=== PATIENT | female | born 1945 | race Caucasian/White ===

== ENCOUNTER 2018-10-09 11:23 | Inpatient (IN) | payer MEDICARE, OTHER ==
[~2018-10-09] VITALS: Ht 170.2 cm; Wt 88.2 kg
--- NOTE | 2018-10-09 12:09 | PHYS DOC ---
Past Medical History Past Medical History: Diabetes-Type II, Heart Disease, Hypertension, Other Additional Past Medical Histor: Bursitis Past Surgical History: Angioplasty, Other Additional Past Surgical Histo: 7 Stents Alcohol Use: Occasionally Drug Use: None Adult General Chief Complaint Chief Complaint: FLU SYMPTOM HPI HPI Patient is a 72 year old female who presents with cough, nausea and vomiting for the past 5 days. Patient has been unable to tolerate any oral intake for the last 2 days. No chest pain or palpitations. Fever of 102 maximum. Notes that she had a fever of 101 this morning. Nothing seems to make the symptoms better. Tylenol and Motrin trigger the nausea and vomiting. No blood in the emesis. No diarrhea.[] Review of Systems Review of Systems Constitutional: Denies fever or chills [] Eyes: Denies change in visual acuity, redness, or eye pain [] HENT: Denies nasal congestion or sore throat [] Respiratory: Denies cough or shortness of breath [] Cardiovascular: No chest pain or palpitations[] GI: Denies abdominal pain, nausea, vomiting, bloody stools or diarrhea [] : Denies dysuria or hematuria [] Musculoskeletal: Denies back pain or joint pain [] Integument: Denies rash or skin lesions [] Neurologic: Denies headache, focal weakness or sensory changes [] Endocrine: Denies polyuria or polydipsia [] All other systems were reviewed and found to be within normal limits, except as documented in this note. Current Medications Current Medications Current Medications Medications (Trade) Dose Ordered Sig/Mohinder Start Time Stop Time Status Last Admin Dose Admin Albuterol/ Ipratropium (Duoneb) 3 ml 1X ONCE 10/09/18 13:00 10/09/18 13:01 DC 10/09/18 12:55 3 ML Furosemide (Lasix) 20 mg 1X ONCE 10/09/18 13:00 10/09/18 13:01 DC 10/09/18 13:04 20 MG Sodium Chloride 500 ml @ 500 mls/hr 1X ONCE 10/09/18 12:15 10/09/18 13:14 DC 10/09/18 13:00 500 MLS/HR Allergies Allergies Allergies Coded Allergies Type Severity Reaction Last Updated Verified Iodinated Contrast- Oral and IV Dye Allergy Severe HIVES 10/09/18 Yes codeine Allergy Severe PASSOUT 10/09/18 Yes pioglitazone Allergy Severe SWELLING 10/09/18 Yes rosiglitazone Allergy Severe SWELLING 10/09/18 Yes Physical Exam Physical Exam Constitutional: Well developed, well nourished, no acute distress, non-toxic appearance. [] HENT: Normocephalic, atraumatic, bilateral external ears normal, oropharynx moist, no oral exudates, nose normal. [] Eyes: PERRLA, EOMI, conjunctiva normal, no discharge. [] Neck: Normal range of motion, no tenderness, supple, no stridor. [] Cardiovascular:Heart rate regular rhythm, no murmur [] Lungs & Thorax: Bilateral breath sounds clear to auscultation [] Abdomen: Bowel sounds normal, soft, no tenderness, no masses, no pulsatile masses. [] Skin: Warm, dry, no erythema, no rash. [] Back: No tenderness, no CVA tenderness. [] Extremities: No tenderness, no cyanosis, no clubbing, ROM intact, no edema. [] Neurologic: Alert and oriented X 3, normal motor function, normal sensory function, no focal deficits noted. [] Psychologic: Affect normal, judgement normal, mood normal. [] Current Patient Data Vital Signs Vital Signs Date Time Temp Pulse Resp B/P (MAP) Pulse Ox O2 Delivery O2 Flow Rate FiO2 10/09/18 12:56 Nasal Cannula 3.0 10/09/18 12:08 99.8 90 18 135/60 (85) 86 99.8 Lab Values Laboratory Tests Test 10/09/18 11:55 White Blood Count 5.6 x10^3/uL (4.0-11.0) Red Blood Count 4.90 x10^6/uL (3.50-5.40) Hemoglobin 13.9 g/dL (12.0-15.5) Hematocrit 42.9 % (36.0-47.0) Mean Corpuscular Volume 88 fL (79-100) Mean Corpuscular Hemoglobin 28 pg (25-35) Mean Corpuscular Hemoglobin Concent 32 g/dL (31-37) Red Cell Distribution Width 15.6 % (11.5-14.5) H Platelet Count 171 x10^3/uL (140-400) Neutrophils (%) (Auto) 69 % (31-73) Lymphocytes (%) (Auto) 19 % (24-48) L Monocytes (%) (Auto) 12 % (0-9) H Eosinophils (%) (Auto) 0 % (0-3) Basophils (%) (Auto) 0 % (0-3) Neutrophils # (Auto) 3.9 x10^3uL (1.8-7.7) Lymphocytes # (Auto) 1.0 x10^3/uL (1.0-4.8) Monocytes # (Auto) 0.7 x10^3/uL (0.0-1.1) Eosinophils # (Auto) 0.0 x10^3/uL (0.0-0.7) Basophils # (Auto) 0.0 x10^3/uL (0.0-0.2) Prothrombin Time 13.0 SEC (11.7-14.0) Prothrombin Time INR 1.0 (0.8-1.1) Sodium Level 135 mmol/L (136-145) L Potassium Level 4.6 mmol/L (3.5-5.1) Chloride Level 96 mmol/L (98-107) L Carbon Dioxide Level 30 mmol/L (21-32) Anion Gap 9 (6-14) Blood Urea Nitrogen 39 mg/dL (7-20) H Creatinine 2.1 mg/dL (0.6-1.0) H Estimated GFR (Cockcroft-Gault) 23.2 BUN/Creatinine Ratio 19 (6-20) Glucose Level 294 mg/dL (70-99) H Calcium Level 8.5 mg/dL (8.5-10.1) Magnesium Level 2.3 mg/dL (1.8-2.4) Total Bilirubin 0.3 mg/dL (0.2-1.0) Aspartate Amino Transferase (AST) 38 U/L (15-37) H Alanine Aminotransferase (ALT) 26 U/L (14-59) Alkaline Phosphatase 53 U/L (46-116) Troponin I Quantitative 0.035 ng/mL (0.000-0.055) BQ-Zxo-Y-Type Natriuretic Peptide 618 pg/mL (0-124) H Total Protein 7.7 g/dL (6.4-8.2) Albumin 3.0 g/dL (3.4-5.0) L Albumin/Globulin Ratio 0.6 (1.0-1.7) L Lipase 288 U/L (73-393) Influenza Type A Antigen Positive (NEGATIVE) Influenza Type B Antigen Negative (NEGATIVE) Laboratory Tests 10/09/18 11:55 Laboratory Tests 10/09/18 11:55 EKG EKG EKG shows sinus rhythm at 85 bpm, left axis, QTC 433 ms, no ST elevations, no old EKG is available for comparison. This was interpreted by me at 1231[] Radiology/Procedures Radiology/Procedures PORTABLE CHEST 1V Clinical History: cough, hypoxia Technique: AP view of the chest was obtained at 10/09/2018 12:05 PM. Comparison: May 12, 2004. Findings: The cardiomediastinal silhouette is normal. The pulmonary vasculature is normal. There are linear opacities in the left lung base. Impression: Linear opacities in the left lung base likely discoid atelectasis. [] Course & Med Decision Making Course & Med Decision Making Pertinent Labs and Imaging studies reviewed. (See chart for details) ED course: Patient arrived, was placed in bed, in tolerated exam well. After the return of the laboratory and imaging studies, these were discussed with the patient and family who voiced understanding. Consultation was made with hospitalist service who graciously accepted the patient. Patient was admitted in improved condition. Medical decision making: Patient appears to have influenza a as well as hypoxia. There is no focal infiltrate noted on chest x-ray. Her BNP is elevated so diuretics were administered, along with a breathing treatment for the hypoxia. Troponin is negative which is this is been an acute cardiac event would expect it to be elevated since this has been going on for less than 7 days. Patient is not a candidate for Tamiflu given the length of the symptoms.[] Dragon Disclaimer Dragon Disclaimer This electronic medical record was generated, in whole or in part, using a voice recognition dictation system. Departure Departure Impression: Primary Impression: Influenza A Additional Impression: Hypoxia Disposition: ADMITTED INPATIENT Admitting Physician: Li Jaramillo Condition: IMPROVED Referrals: J CARLOS EDMONDSON (PCP) Problem Qualifiers FAREED GARNETT DO Oct 09, 2018 12:09
[2018-10-09] MEDS ORDERED: IV NORMAL SALINE 500ML BAG 500 ML IV ONE (12:15)
[2018-10-09 12:17] LABS: BASO % 0 % (0-3); EOS % 0 % (0-3); HEMATOCRIT 42.9 % (36.0-47.0); HEMOGLOBIN 13.9 g/dL (12.0-15.5); LYMPH % 19 % (24-48); MEAN CORPUSCULAR HEMOGLOBIN 28 pg (25-35); MEAN CORPUSCULAR HGB CONC 32 g/dL (31-37); MEAN CORPUSCULAR VOLUME 88 fL (79-100); MONO # 0.7 x10^3/uL (0.0-1.1); MONO % 12 % (0-9); NEUT # 3.9 x10^3uL (1.8-7.7); NEUT % 69 % (31-73); PLATELET COUNT 171 x10^3/uL (140-400); RED CELL DISTRIBUTION WIDTH 15.6 % (11.5-14.5); WHITE BLOOD COUNT 5.6 x10^3/uL (4.0-11.0)
[2018-10-09 12:25] LABS: CALCIUM 8.5 mg/dL (8.5-10.1); CREATININE 2.1 mg/dL (0.6-1.0); GFR 23.2; POTASSIUM 4.6 mmol/L (3.5-5.1)
[2018-10-09 12:31] LABS: ALBUMIN/GLOBULIN RATIO 0.6 (1.0-1.7); MAGNESIUM 2.3 mg/dL (1.8-2.4); TOTAL BILIRUBIN 0.3 mg/dL (0.2-1.0); TOTAL PROTEIN 7.7 g/dL (6.4-8.2)
[2018-10-09 12:37] LABS: INFLUENZA A PATIENT POSITIVE (NEGATIVE); INFLUENZA B PATIENT NEGATIVE (NEGATIVE)
--- NOTE | 2018-10-09 12:38 | RAD ---
PORTABLE CHEST 1V Clinical History: cough, hypoxia Technique: AP view of the chest was obtained at 10/09/2018 12:05 PM. Comparison: May 12, 2004. Findings: The cardiomediastinal silhouette is normal. The pulmonary vasculature is normal. There are linear opacities in the left lung base. Impression: Linear opacities in the left lung base likely discoid atelectasis. Electronically signed by: Jovani Padilla III, MD (10/09/2018 12:34 PM) [facility]
[2018-10-09] MEDS ORDERED: IPRATRPIUM/ALBUTEROL 0.5/2.5MG 3 ML NEBU. NEB ONE (13:00)
[2018-10-09] MEDS ORDERED: FUROSEMIDE 20 MG/2 ML VIAL. IVP ONE (13:00)
[2018-10-09] MEDS ORDERED: ONDANSETRON PF 4 MG/2 ML VIAL. IV PRN (13:45)
[2018-10-09 14:45] VITALS: BP 123/59
[2018-10-09] MEDS ORDERED: DEXTROSE 50% 25 GM / 50ML DISP.SYRIN. IV PRN (15:00)
--- NOTE | 2018-10-09 15:00 | PDOC1 ---
History and Physical Date of Admission Date of Admission DATE: 10/09/18 TIME: 14:56 Identification/Chief Complaint Chief Complaint lethargy, dyspnea, nausea Source Source: Caregiver, Chart review, Patient History of Present Illness History of Present Illness Ms. Barrett is a 72 year old female who admit with dyspena and lethargy and malaise. She has not had much PO intake for 4 days, limited food or fluids, also with cough, nausea w. soem vomiting for the past few days. No chest pain or palpitations. Temp 102 at home Past Medical History Cardiovascular: CAD, HTN Endocrine: Diabetes Family History Family History: Heart Disease Social History Smoke: Quit (20 years ago) ALCOHOL: rare Current Medications Current Medications Current Medications Sodium Chloride 500 ml @ 500 mls/hr 1X ONCE IV Last administered on 10/09/18at 13:00; Start 10/09/18 at 12:15; Stop 10/09/18 at 13:14; Status DC Albuterol/ Ipratropium (Duoneb) 3 ml 1X ONCE NEB Last administered on at 12:55; Start 10/09/18 at 13:00; Stop 10/09/18 at 13:01; Status DC Furosemide (Lasix) 20 mg 1X ONCE IVP Last administered on 10/09/18at 13:04; Start 10/09/18 at 13:00; Stop 10/09/18 at 13:01; Status DC Ondansetron HCl (Zofran) 4 mg PRN Q8HRS PRN IV NAUSEA/VOMITING; Start 10/09/18 at 13:45; Stop 10/10/18 at 13:44 Acetaminophen (Tylenol) 650 mg PRN Q4HRS PRN PO FEVER; Start 10/09/18 at 13:45; Stop 10/10/18 at 13:44 Albuterol/ Ipratropium (Duoneb) 3 ml RTQID NEB ; Start 10/09/18 at 16:00; Stop at 15:59 Allergies Allergies: Coded Allergies: Iodinated Contrast- Oral and IV Dye (Verified Allergy, Severe, HIVES, ) codeine (Verified Allergy, Severe, PASSOUT, 10/09/18) pioglitazone (Verified Allergy, Severe, SWELLING, 10/09/18) rosiglitazone (Verified Allergy, Severe, SWELLING, 10/09/18) ROS General: No: Chills, Night Sweats, Fatigue, Malaise, Appetite, Other PSYCHOLOGICAL ROS: No: Anxiety, Behavioral Disorder, Concentration difficultie , Decreased libido, Depression, Disorientation, Hallucinations, Hostility, Irritablity, Memory difficulties, Mood Swings, Obsessive thoughts, Physical abuse, Sexual abuse, Sleep disturbances, Suicidal ideation, Other Eyes: No Blurry vision, No Decreased vision, No Double vision, No Dry eyes, No Excessive tearing, No Eye Pain, No Itchy Eyes, No Loss of vision, No Photophobia , No Scotomata, No Uses contacts, No Uses glasses, No Other HEENT: No: Heacaches, Visual Changes, Hearing change, Nasal congestion, Nasal discharge, Oral lesions, Sinus pain, Sore Throat, Epistaxis, Sneezing, Snoring, Tinnitus, Vertigo, Vocal changes, Other Respiratory: No: Cough, Hemoptysis, Orthopnea, Pleuritic Pain, Shortness of breath, SOB with excertion, Sputum Changes, Stridor, Tachypnea, Wheezing, Other Cardiovascular: No Chest Pain, No Palpitations, No Orthopnea, No Paroxysmal Noc. Dyspnea, No Edema, No Lt Headedness, No Other Genitourinary: No Dysuria, No Frequency, No Incontinence, No Hematuria, No Retention, No Discharge, No Urgency, No Pain, No Flank Pain, No Other, No , No , No , No , No , No , No Musculoskeletal: No Gait Disturbance, No Joint Pain, No Joint Stiffness, No Joint Swelling, No Muscle Pain, No Muscular Weakness, No Pain In:, No Swelling In:, No Other Neurological: No Behavorial Changes, No Bowel/Bladder ControlChng, No Confusion , No Dizziness, No Gait Disturbance, No Headaches, No Impaired Coord/balance, No Memory Loss, No Numbness/Tingling, No Seizures, No Speech Problems, No Tremors, No Visual Changes, No Weakness, No Other Skin: No Dry Skin, No Eczema, No Hair Changes, No Lumps, No Mole Changes, No Mottling, No Nail Changes, No Pruritus, No Rash, No Skin Lesion Changes, No Other, No Acne Physical Exam General: Alert, Cooperative, No acute distress HEENT: PERRLA, Mucous membr. moist/pink Lungs: Clear to auscultation, Normal air movement Heart: S1S2, RRR, no murmurs Abdomen: Normal bowel sounds, Soft Rectal Exam: not examined Extremities: No cyanosis, Normal pulses, Other (tr edema) Skin: No rashes Neuro: Normal speech, Sensation intact Psych/Mental Status: Mental status NL, Mood NL Vitals Vitals Vital Signs Date Time Temp Pulse Resp B/P (MAP) Pulse Ox O2 Delivery O2 Flow Rate FiO2 10/09/18 13:00 84 118/56 (76) 97 Nasal Cannula 2.0 10/09/18 12:08 99.8 18 99.8 Labs Labs Laboratory Tests Test 10/09/18 11:55 White Blood Count 5.6 x10^3/uL (4.0-11.0) Red Blood Count 4.90 x10^6/uL (3.50-5.40) Hemoglobin 13.9 g/dL (12.0-15.5) Hematocrit 42.9 % (36.0-47.0) Mean Corpuscular Volume 88 fL (79-100) Mean Corpuscular Hemoglobin 28 pg (25-35) Mean Corpuscular Hemoglobin Concent 32 g/dL (31-37) Red Cell Distribution Width 15.6 % (11.5-14.5) Platelet Count 171 x10^3/uL (140-400) Neutrophils (%) (Auto) 69 % (31-73) Lymphocytes (%) (Auto) 19 % (24-48) Monocytes (%) (Auto) 12 % (0-9) Eosinophils (%) (Auto) 0 % (0-3) Basophils (%) (Auto) 0 % (0-3) Neutrophils # (Auto) 3.9 x10^3uL (1.8-7.7) Lymphocytes # (Auto) 1.0 x10^3/uL (1.0-4.8) Monocytes # (Auto) 0.7 x10^3/uL (0.0-1.1) Eosinophils # (Auto) 0.0 x10^3/uL (0.0-0.7) Basophils # (Auto) 0.0 x10^3/uL (0.0-0.2) Prothrombin Time 13.0 SEC (11.7-14.0) Prothromb Time International Ratio 1.0 (0.8-1.1) Sodium Level 135 mmol/L (136-145) Potassium Level 4.6 mmol/L (3.5-5.1) Chloride Level 96 mmol/L (98-107) Carbon Dioxide Level 30 mmol/L (21-32) Anion Gap 9 (6-14) Blood Urea Nitrogen 39 mg/dL (7-20) Creatinine 2.1 mg/dL (0.6-1.0) Estimated GFR (Cockcroft-Gault) 23.2 BUN/Creatinine Ratio 19 (6-20) Glucose Level 294 mg/dL (70-99) Calcium Level 8.5 mg/dL (8.5-10.1) Magnesium Level 2.3 mg/dL (1.8-2.4) Total Bilirubin 0.3 mg/dL (0.2-1.0) Aspartate Amino Transf (AST/SGOT) 38 U/L (15-37) Alanine Aminotransferase (ALT/SGPT) 26 U/L (14-59) Alkaline Phosphatase 53 U/L (46-116) Troponin I Quantitative 0.035 ng/mL (0.000-0.055) AK-Iqf-A-Type Natriuretic Peptide 618 pg/mL (0-124) Total Protein 7.7 g/dL (6.4-8.2) Albumin 3.0 g/dL (3.4-5.0) Albumin/Globulin Ratio 0.6 (1.0-1.7) Lipase 288 U/L (73-393) Influenza Type A Antigen Positive (NEGATIVE) Influenza Type B Antigen Negative (NEGATIVE) Laboratory Tests Test 10/09/18 11:55 White Blood Count 5.6 x10^3/uL (4.0-11.0) Red Blood Count 4.90 x10^6/uL (3.50-5.40) Hemoglobin 13.9 g/dL (12.0-15.5) Hematocrit 42.9 % (36.0-47.0) Mean Corpuscular Volume 88 fL (79-100) Mean Corpuscular Hemoglobin 28 pg (25-35) Mean Corpuscular Hemoglobin Concent 32 g/dL (31-37) Red Cell Distribution Width 15.6 % (11.5-14.5) Platelet Count 171 x10^3/uL (140-400) Neutrophils (%) (Auto) 69 % (31-73) Lymphocytes (%) (Auto) 19 % (24-48) Monocytes (%) (Auto) 12 % (0-9) Eosinophils (%) (Auto) 0 % (0-3) Basophils (%) (Auto) 0 % (0-3) Neutrophils # (Auto) 3.9 x10^3uL (1.8-7.7) Lymphocytes # (Auto) 1.0 x10^3/uL (1.0-4.8) Monocytes # (Auto) 0.7 x10^3/uL (0.0-1.1) Eosinophils # (Auto) 0.0 x10^3/uL (0.0-0.7) Basophils # (Auto) 0.0 x10^3/uL (0.0-0.2) Prothrombin Time 13.0 SEC (11.7-14.0) Prothromb Time International Ratio 1.0 (0.8-1.1) Sodium Level 135 mmol/L (136-145) Potassium Level 4.6 mmol/L (3.5-5.1) Chloride Level 96 mmol/L (98-107) Carbon Dioxide Level 30 mmol/L (21-32) Anion Gap 9 (6-14) Blood Urea Nitrogen 39 mg/dL (7-20) Creatinine 2.1 mg/dL (0.6-1.0) Estimated GFR (Cockcroft-Gault) 23.2 BUN/Creatinine Ratio 19 (6-20) Glucose Level 294 mg/dL (70-99) Calcium Level 8.5 mg/dL (8.5-10.1) Magnesium Level 2.3 mg/dL (1.8-2.4) Total Bilirubin 0.3 mg/dL (0.2-1.0) Aspartate Amino Transf (AST/SGOT) 38 U/L (15-37) Alanine Aminotransferase (ALT/SGPT) 26 U/L (14-59) Alkaline Phosphatase 53 U/L (46-116) Troponin I Quantitative 0.035 ng/mL (0.000-0.055) NV-Vub-K-Type Natriuretic Peptide 618 pg/mL (0-124) Total Protein 7.7 g/dL (6.4-8.2) Albumin 3.0 g/dL (3.4-5.0) Albumin/Globulin Ratio 0.6 (1.0-1.7) Lipase 288 U/L (73-393) Influenza Type A Antigen Positive (NEGATIVE) Influenza Type B Antigen Negative (NEGATIVE) VTE Prophylaxis Ordered VTE Prophylaxis Devices: No VTE Pharmacological Prophylaxi: Yes Assessment/Plan Assessment/Plan sepsis influenza acute hypoxic respiratory failure, unknown if baseline lung disease, she had PFT lsat week at , no results yet BELINDA DM2, poor control CAD, hx 11 stents, cont home meds, no acute, obesity, BMI 31 CHF, chronic systolic, she reports dyspnea with walking one block, NYHA3 - cannot tolerate stairs NREI NASH MD Oct 09, 2018 15:00
--- NOTE | 2018-10-09 15:40 | PDOC ---
PULMONARY PROGRESS NOTES Vitals Vital Signs Date Time Temp Pulse Resp B/P (MAP) Pulse Ox O2 Delivery O2 Flow Rate FiO2 10/09/18 13:00 84 118/56 (76) 97 Nasal Cannula 2.0 10/09/18 12:08 99.8 18 99.8 Labs Laboratory Tests Test 10/09/18 11:55 White Blood Count 5.6 x10^3/uL (4.0-11.0) Red Blood Count 4.90 x10^6/uL (3.50-5.40) Hemoglobin 13.9 g/dL (12.0-15.5) Hematocrit 42.9 % (36.0-47.0) Mean Corpuscular Volume 88 fL (79-100) Mean Corpuscular Hemoglobin 28 pg (25-35) Mean Corpuscular Hemoglobin Concent 32 g/dL (31-37) Red Cell Distribution Width 15.6 % (11.5-14.5) Platelet Count 171 x10^3/uL (140-400) Neutrophils (%) (Auto) 69 % (31-73) Lymphocytes (%) (Auto) 19 % (24-48) Monocytes (%) (Auto) 12 % (0-9) Eosinophils (%) (Auto) 0 % (0-3) Basophils (%) (Auto) 0 % (0-3) Neutrophils # (Auto) 3.9 x10^3uL (1.8-7.7) Lymphocytes # (Auto) 1.0 x10^3/uL (1.0-4.8) Monocytes # (Auto) 0.7 x10^3/uL (0.0-1.1) Eosinophils # (Auto) 0.0 x10^3/uL (0.0-0.7) Basophils # (Auto) 0.0 x10^3/uL (0.0-0.2) Prothrombin Time 13.0 SEC (11.7-14.0) Prothromb Time International Ratio 1.0 (0.8-1.1) Sodium Level 135 mmol/L (136-145) Potassium Level 4.6 mmol/L (3.5-5.1) Chloride Level 96 mmol/L (98-107) Carbon Dioxide Level 30 mmol/L (21-32) Anion Gap 9 (6-14) Blood Urea Nitrogen 39 mg/dL (7-20) Creatinine 2.1 mg/dL (0.6-1.0) Estimated GFR (Cockcroft-Gault) 23.2 BUN/Creatinine Ratio 19 (6-20) Glucose Level 294 mg/dL (70-99) Calcium Level 8.5 mg/dL (8.5-10.1) Magnesium Level 2.3 mg/dL (1.8-2.4) Total Bilirubin 0.3 mg/dL (0.2-1.0) Aspartate Amino Transf (AST/SGOT) 38 U/L (15-37) Alanine Aminotransferase (ALT/SGPT) 26 U/L (14-59) Alkaline Phosphatase 53 U/L (46-116) Troponin I Quantitative 0.035 ng/mL (0.000-0.055) OA-Aoj-I-Type Natriuretic Peptide 618 pg/mL (0-124) Total Protein 7.7 g/dL (6.4-8.2) Albumin 3.0 g/dL (3.4-5.0) Albumin/Globulin Ratio 0.6 (1.0-1.7) Lipase 288 U/L (73-393) Influenza Type A Antigen Positive (NEGATIVE) Influenza Type B Antigen Negative (NEGATIVE) Laboratory Tests Test 10/09/18 11:55 White Blood Count 5.6 x10^3/uL (4.0-11.0) Red Blood Count 4.90 x10^6/uL (3.50-5.40) Hemoglobin 13.9 g/dL (12.0-15.5) Hematocrit 42.9 % (36.0-47.0) Mean Corpuscular Volume 88 fL (79-100) Mean Corpuscular Hemoglobin 28 pg (25-35) Mean Corpuscular Hemoglobin Concent 32 g/dL (31-37) Red Cell Distribution Width 15.6 % (11.5-14.5) Platelet Count 171 x10^3/uL (140-400) Neutrophils (%) (Auto) 69 % (31-73) Lymphocytes (%) (Auto) 19 % (24-48) Monocytes (%) (Auto) 12 % (0-9) Eosinophils (%) (Auto) 0 % (0-3) Basophils (%) (Auto) 0 % (0-3) Neutrophils # (Auto) 3.9 x10^3uL (1.8-7.7) Lymphocytes # (Auto) 1.0 x10^3/uL (1.0-4.8) Monocytes # (Auto) 0.7 x10^3/uL (0.0-1.1) Eosinophils # (Auto) 0.0 x10^3/uL (0.0-0.7) Basophils # (Auto) 0.0 x10^3/uL (0.0-0.2) Prothrombin Time 13.0 SEC (11.7-14.0) Prothromb Time International Ratio 1.0 (0.8-1.1) Sodium Level 135 mmol/L (136-145) Potassium Level 4.6 mmol/L (3.5-5.1) Chloride Level 96 mmol/L (98-107) Carbon Dioxide Level 30 mmol/L (21-32) Anion Gap 9 (6-14) Blood Urea Nitrogen 39 mg/dL (7-20) Creatinine 2.1 mg/dL (0.6-1.0) Estimated GFR (Cockcroft-Gault) 23.2 BUN/Creatinine Ratio 19 (6-20) Glucose Level 294 mg/dL (70-99) Calcium Level 8.5 mg/dL (8.5-10.1) Magnesium Level 2.3 mg/dL (1.8-2.4) Total Bilirubin 0.3 mg/dL (0.2-1.0) Aspartate Amino Transf (AST/SGOT) 38 U/L (15-37) Alanine Aminotransferase (ALT/SGPT) 26 U/L (14-59) Alkaline Phosphatase 53 U/L (46-116) Troponin I Quantitative 0.035 ng/mL (0.000-0.055) BF-Iho-G-Type Natriuretic Peptide 618 pg/mL (0-124) Total Protein 7.7 g/dL (6.4-8.2) Albumin 3.0 g/dL (3.4-5.0) Albumin/Globulin Ratio 0.6 (1.0-1.7) Lipase 288 U/L (73-393) Influenza Type A Antigen Positive (NEGATIVE) Influenza Type B Antigen Negative (NEGATIVE) Impression . FULL NOTE DICTATED ATELECTASIS INFLUENZA SEE ORDERS ALESSANDRO VELAZQUEZ MD Oct 09, 2018 15:40
[2018-10-09] MEDS ORDERED: OMEG100021 PO (15:44)
[2018-10-09] MEDS ORDERED: CLOP75TA PO (15:44)
[2018-10-09] MEDS ORDERED: EXEN2PEN SQ (15:44)
[2018-10-09] MEDS ORDERED: METF10007 PO (15:44)
[2018-10-09] MEDS ORDERED: MV-M1TAB52 PO (15:44)
[2018-10-09] MEDS ORDERED: ISOS30TA4 PO (15:44)
[2018-10-09] MEDS ORDERED: LISI-376 PO (15:44)
[2018-10-09] MEDS ORDERED: ASPI81TA50 PO (15:44)
[2018-10-09] MEDS ORDERED: CALC-494 PO (15:44)
[2018-10-09] MEDS ORDERED: INSU100I17 SQ (15:44)
[2018-10-09] MEDS ORDERED: METO-269 PO (15:44)
[2018-10-09] MEDS ORDERED: FURO-68 PO (15:44)
[2018-10-09] MEDS ORDERED: ZOLP10TA PO (15:44)
[2018-10-09] MEDS ORDERED: CRESTOR10 MG PO (15:44)
[2018-10-09] MEDS ORDERED: CYAN10005 PO (15:44)
[2018-10-09] MEDS ORDERED: NITR0.4T22 SL (15:44)
[2018-10-09] MEDS ORDERED: GABA-689 PO (15:44)
[2018-10-09] MEDS: IPRATRPIUM/ALBUTEROL 0.5/2.5MG 3 ML NEBU. NEB SCH ×2 (15:47→19:07)
[2018-10-09] MEDS: ACETAMINOPHEN 325 MG TABLET. PO PRN (16:53)
[2018-10-09] MEDS: OSELTAMIVIR 30 MG CAPSULE PO SCH (16:54)
[2018-10-09] MEDS: IV NORMAL SALINE 1000ML BAG 1,000 ML IV SCH (16:55)
[2018-10-09] MEDS: INSULIN LISPRO 300 UNITS/3 ML INSULN.PEN. SQ SCH ×2 (17:00→17:11)
[2018-10-09 18:18] VITALS: BP 82/34
[2018-10-09] MEDS ORDERED: ZOLPIDEM 5 MG TABLET. PO PRN (18:45)
[2018-10-09] MEDS ORDERED: NITROGLYCERIN SUBLINGUAL 0.4 MG BOTTLE OF 25. SL PRN (18:45)
[2018-10-09] MEDS: GABAPENTIN 400 MG CAPSULE. PO SCH ×2 (19:00→20:39)
[2018-10-09 19:10] VITALS: BP 101/41
--- NOTE | 2018-10-09 19:13 | NUR ---
Upon 190 VS check found patient b/p in the 80's systolic. Patient did not report dizziness and shows no signs of diaphoresis. Gave a total of 500 cc's fluid bolus and upon recheck B/p is now 101/41.
[2018-10-09] MEDS: OMEGA-3 FATTY ACIDS/FISH OIL 1,000 MG CAPSULE. PO SCH (20:39)
[2018-10-09] MEDS: ATORVASTATIN CALCIUM 40 MG TABLET. PO SCH (20:39)
[2018-10-09] MEDS: INSULIN GLARGINE 300 UNITS/3 ML INSULN.PEN. SQ SCH (20:42)
[2018-10-09] MEDS: HEPARIN for SUB-Q USE 5,000 UNIT/ML VIAL. SQ SCH (20:42)
[2018-10-09 22:30] VITALS: BP 113/66
[2018-10-09 22:50] LABS: BILIRUBIN,URINE NEGATIVE (NEG); CLARITY,URINE CLOUDY; COLOR,URINE YELLOW; NITRITE,URINE NEGATIVE (NEG); PH,URINE 5.5; PROTEIN,URINE 100 mg/dL (NEG-TRACE); UROBILINOGEN,URINE 0.2 mg/dL (0.2 mg/dL)
[2018-10-09 23:01] LABS: BACTERIA,URINE MANY /HPF (0-FEW); HYALINE CASTS, URINE MODERATE /HPF; RBC,URINE 0 /HPF (0-2); SQUAMOUS EPITHELIAL CELL,UR FEW /LPF; WBC,URINE TNTC /HPF (0-4)
[2018-10-10] MEDS: ACETAMINOPHEN 325 MG TABLET. PO PRN (02:31)
[2018-10-10 03:00] VITALS: BP 148/65
[2018-10-10] MEDS: cefTRIAXone IV Push 1 GM VIAL. IVP SCH (04:43)
--- NOTE | 2018-10-10 04:45 | CONS ---
DATE OF CONSULTATION: 10/09/2018 REASON FOR CONSULTATION: Renal failure. HISTORY OF PRESENT ILLNESS: This is a 72-year-old female with history of diabetes mellitus, hypertension, coronary artery disease. The patient presented to the hospital with weakness, fatigue and dyspnea. She also has had nausea, vomiting, poor oral intake for 4 days prior to admission. Temperature was 102 at home. She was found to be positive for influenza and is being admitted for the same. Due to increased level of azotemia, Nephrology evaluation is requested. The patient denies history of renal disease, nephrolithiasis, gross hematuria or difficulty with urination. Laboratories were notable for sodium of 135, BUN 39, creatinine 2.1, GFR is 23. PAST MEDICAL HISTORY: Diabetes mellitus, hypertension, coronary artery disease. ALLERGIES: IV CONTRAST, IODINE, CODEINE, PIOGLITAZONE, ROSIGLITAZONE. FAMILY HISTORY: Noncontributory. SOCIAL HISTORY: The patient resides independently. Rare alcohol use, discontinued smoking 20 years prior to admission. REVIEW OF SYSTEMS: She has had headache. No sinus problem, nasal drainage, epistaxis, change in vision or hearing. No difficulty swallowing. She has had fever and chills. No cough or sputum production or hemoptysis. No chest pain or shortness of breath. No abdominal pain. She has had nausea and vomiting. No diarrhea. No seizures or malignancies. PHYSICAL EXAMINATION: GENERAL APPEARANCE: The patient is awake, conversant. HEENT: Clear. NECK: No increased JVD. No thyromegaly, masses or adenopathy. LUNGS: Clear. CARDIAC: Without S3 or rub. ABDOMEN: Soft, nontender, no bruits. EXTREMITIES: Without edema. NEUROLOGIC: Nonfocal, localizing. PSYCHIATRIC: Good attention to detail, appropriate affect. LABORATORY DATA: Sodium 135, potassium 4.6, chloride 96, CO2 of 30, BUN is 39, creatinine 2.1, GFR is 23. Hemoglobin 13.9, hematocrit 42.9, white count 5.6, platelets 171. Influenza A antigen is positive. IMPRESSION: 1. Renal failure -- likely acute, anticipate prerenal with dehydration secondary to enhanced gastrointestinal losses, poor oral intake. 2. Influenza A. 3. Diabetes mellitus. RECOMMENDATIONS: 1. Tamiflu. 2. IV fluid administration and follow response. ANIBAL MENDEZ MD DR: ALEJANDRA/aquiles JOB#: [id number] / [id number]
--- NOTE | 2018-10-10 04:50 | CONS ---
DATE OF CONSULTATION: 10/09/2018 ATTENDING PHYSICIAN: Dr. Jaramillo. REASON FOR CONSULTATION: The patient is seen in pulmonary consultation at the request of Dr. Jaramillo for abnormal x-ray, increasing dyspnea. HISTORY OF PRESENT ILLNESS: The patient is a 72-year-old that has been sick for a couple of days now, fever at home, body aches, lethargy. She had a flu vaccination. She presented and had an influenza screen, which was positive for influenza A. She had a chest x-ray revealing questionable atelectasis in the base. I reviewed it. I was asked to see him in consultation. The patient denies wheezing, no productive cough. No nausea or vomiting. She is a smoker, but quit 20 years ago. She has no diagnosis of COPD. PAST MEDICAL HISTORY: Coronary artery disease with previous PCI, hypertension and diabetes. PAST SURGICAL HISTORY: No recent surgeries. ALLERGIES: CONTRAST DYE, CODEINE, PIOGLITAZONE AND ROSIGLITAZONE. MEDICATIONS: Medication list was reviewed. REVIEW OF SYSTEMS: As indicated above, otherwise, a 10-point system was reviewed and negative. CONSTITUTIONAL: As indicated above. EYES: No change in visual acuity. HEENT: No headaches, diplopia or blurred vision. PULMONARY: As indicated above. CARDIOVASCULAR: As indicated above. GASTROINTESTINAL: As indicated above. SKIN: No dysuria or frequency. MUSCULOSKELETAL: Generalized myalgias. NEUROLOGIC: No headaches, diplopia or blurred vision. SKIN: No new skin lesions. PHYSICAL EXAMINATION: GENERAL: The patient was in no respiratory distress. VITAL SIGNS: Stable. O2 saturation currently on 2 liters was greater than 92%. HEENT: Eyes, the sclerae were nonicteric. NECK: Jugular venous distention was not elevated. No lymphadenopathy. CHEST: Full expansion. LUNGS: Coarse breath sounds, no wheezes. CARDIOVASCULAR: Regular rate and rhythm with S1, S2, no S3. ABDOMEN: Soft, nontender, nondistended. EXTREMITIES: No clubbing, cyanosis or edema. NEUROLOGIC: The patient was awake, alert, following commands. A detailed neuro exam was not performed. LABORATORY DATA: Reviewed. White count was normal. Hemoglobin and hematocrit were normal. Electrolytes were noted. BUN was elevated, creatinine was elevated. Influenza was positive. IMPRESSION: 1. Abnormal x-ray revealing left lower lobe atelectasis. 2. Tobacco dependence, in remission, questionable mild chronic obstructive pulmonary disease. 3. Positive influenza A. 4. Renal insufficiency, suspect chronic on acute. 5. Diabetes. 6. Coronary artery disease. PLAN: 1. We will continue support with IV fluids. 2. Tamiflu. 3. No need for antibiotics. 4. Nebulized treatments. I do appreciate the privilege in sharing in the patient's care. ALESSANDRO VELAZQUEZ MD DR: BRITTNY/aquiles JOB#: [id number] / [id number]
[2018-10-10] MEDS ORDERED: IBUPROFEN 400 MG TABLET. PO ONE (05:00)
[2018-10-10] MEDS: IV NORMAL SALINE 1000ML BAG 1,000 ML IV SCH ×2 (05:20→17:01)
[2018-10-10 05:21] LABS: BASO % 0 % (0-3); EOS % 0 % (0-3); HEMATOCRIT 39.4 % (36.0-47.0); HEMOGLOBIN 13.1 g/dL (12.0-15.5); LYMPH # 1.1 x10^3/uL (1.0-4.8); LYMPH % 22 % (24-48); MEAN CORPUSCULAR HEMOGLOBIN 29 pg (25-35); MEAN CORPUSCULAR HGB CONC 33 g/dL (31-37); MEAN CORPUSCULAR VOLUME 87 fL (79-100); MONO # 0.6 x10^3/uL (0.0-1.1); MONO % 12 % (0-9); NEUT # 3.3 x10^3uL (1.8-7.7); NEUT % 66 % (31-73); PLATELET COUNT 141 x10^3/uL (140-400); RED BLOOD COUNT 4.52 x10^6/uL (3.50-5.40); RED CELL DISTRIBUTION WIDTH 15.7 % (11.5-14.5)
[2018-10-10 06:17] LABS: ALBUMIN 2.6 g/dL (3.4-5.0); ALBUMIN/GLOBULIN RATIO 0.6 (1.0-1.7); CALCIUM 8.2 mg/dL (8.5-10.1); CREATININE 1.9 mg/dL (0.6-1.0); POTASSIUM 4.2 mmol/L (3.5-5.1); TOTAL BILIRUBIN 0.3 mg/dL (0.2-1.0); TOTAL PROTEIN 6.9 g/dL (6.4-8.2)
--- NOTE | 2018-10-10 07:54 | EKG ---
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
[2018-10-10] MEDS: IPRATRPIUM/ALBUTEROL 0.5/2.5MG 3 ML NEBU. NEB SCH ×2 (07:59→11:45)
[2018-10-10] MEDS: INSULIN LISPRO 300 UNITS/3 ML INSULN.PEN. SQ SCH ×6 (08:00→17:00)
[2018-10-10] MEDS: ASPIRIN ENTERIC COATED 81 MG TABLET.DR. PO SCH (08:25)
[2018-10-10] MEDS: GABAPENTIN 400 MG CAPSULE. PO SCH ×4 (08:25→20:58)
[2018-10-10] MEDS: CALCIUM CARB/VIT D3 500/200 TABLET. PO SCH (08:25)
[2018-10-10] MEDS: CLOPIDOGREL BISULFATE 75 MG TABLET PO SCH (08:26)
[2018-10-10] MEDS: CYANOCOBALAMIN (VITAMIN B-12) 1,000 MCG TABLET. PO SCH (08:26)
[2018-10-10] MEDS: OMEGA-3 FATTY ACIDS/FISH OIL 1,000 MG CAPSULE. PO SCH ×3 (08:26→20:58)
[2018-10-10] MEDS: FUROSEMIDE 40 MG TABLET. PO SCH (08:26)
[2018-10-10] MEDS: OSELTAMIVIR 30 MG CAPSULE PO SCH (08:26)
[2018-10-10] MEDS: LACTOBACILLUS RHAMNOSUS GG 1 CAPSULE. PO SCH ×2 (08:26→20:58)
[2018-10-10] MEDS: MULTIVITAMIN with MINERAL TABLET. PO SCH (08:26)
[2018-10-10] MEDS: METOPROLOL SUCC 24HR ER 50 MG TAB.ER.24H. PO SCH (08:27)
[2018-10-10] MEDS: HEPARIN for SUB-Q USE 5,000 UNIT/ML VIAL. SQ SCH ×2 (08:35→21:07)
[2018-10-10] MEDS: LISINOPRIL 5 MG TABLET. PO SCH (09:00)
--- NOTE | 2018-10-10 10:15 | PDOC ---
PROGRESS NOTES Chief Complaint Chief Complaint CC: Lethargy, dyspnea, malaise Influenza A positive Acute hypoxic respiratory failure BELINDA DM2 CAD with hx of 11 stents Obesity CHF History of Present Illness History of Present Illness Pt is a 72 y/o female who presented with lethargy, dyspnea and malaise. Found to be Influenza A positive. Today she was seen and examined in her room. She is resting in her bed. Her is in the room. She has no new complaints at this time. Discussed care with her RN. Vitals Vitals Vital Signs Date Time Temp Pulse Resp B/P (MAP) Pulse Ox O2 Delivery O2 Flow Rate FiO2 10/10/18 08:27 82 113/55 10/10/18 08:00 94 Nasal Cannula 2.0 10/10/18 07:27 18 10/10/18 03:00 102.2 102.2 Physical Exam General: Alert, Cooperative, No acute distress Heart: Regular rate, No murmurs Lungs: Clear, Other (no wheezing or crackles) Abdomen: Normal bowel sounds, Soft Extremities: No cyanosis, Normal pulses, Other (tr edema) Skin: No rashes Labs LABS Laboratory Tests Test 10/09/18 11:55 10/09/18 16:48 10/09/18 20:38 10/09/18 22:35 White Blood Count 5.6 x10^3/uL (4.0-11.0) Red Blood Count 4.90 x10^6/uL (3.50-5.40) Hemoglobin 13.9 g/dL (12.0-15.5) Hematocrit 42.9 % (36.0-47.0) Mean Corpuscular Volume 88 fL (79-100) Mean Corpuscular Hemoglobin 28 pg (25-35) Mean Corpuscular Hemoglobin Concent 32 g/dL (31-37) Red Cell Distribution Width 15.6 % (11.5-14.5) Platelet Count 171 x10^3/uL (140-400) Neutrophils (%) (Auto) 69 % (31-73) Lymphocytes (%) (Auto) 19 % (24-48) Monocytes (%) (Auto) 12 % (0-9) Eosinophils (%) (Auto) 0 % (0-3) Basophils (%) (Auto) 0 % (0-3) Neutrophils # (Auto) 3.9 x10^3uL (1.8-7.7) Lymphocytes # (Auto) 1.0 x10^3/uL (1.0-4.8) Monocytes # (Auto) 0.7 x10^3/uL (0.0-1.1) Eosinophils # (Auto) 0.0 x10^3/uL (0.0-0.7) Basophils # (Auto) 0.0 x10^3/uL (0.0-0.2) Prothrombin Time 13.0 SEC (11.7-14.0) Prothromb Time International Ratio 1.0 (0.8-1.1) Sodium Level 135 mmol/L (136-145) Potassium Level 4.6 mmol/L (3.5-5.1) Chloride Level 96 mmol/L (98-107) Carbon Dioxide Level 30 mmol/L (21-32) Anion Gap 9 (6-14) Blood Urea Nitrogen 39 mg/dL (7-20) Creatinine 2.1 mg/dL (0.6-1.0) Estimated GFR (Cockcroft-Gault) 23.2 BUN/Creatinine Ratio 19 (6-20) Glucose Level 294 mg/dL (70-99) Calcium Level 8.5 mg/dL (8.5-10.1) Magnesium Level 2.3 mg/dL (1.8-2.4) Total Bilirubin 0.3 mg/dL (0.2-1.0) Aspartate Amino Transf (AST/SGOT) 38 U/L (15-37) Alanine Aminotransferase (ALT/SGPT) 26 U/L (14-59) Alkaline Phosphatase 53 U/L (46-116) Troponin I Quantitative 0.035 ng/mL (0.000-0.055) AP-Wuy-G-Type Natriuretic Peptide 618 pg/mL (0-124) Total Protein 7.7 g/dL (6.4-8.2) Albumin 3.0 g/dL (3.4-5.0) Albumin/Globulin Ratio 0.6 (1.0-1.7) Lipase 288 U/L (73-393) Influenza Type A Antigen Positive (NEGATIVE) Influenza Type B Antigen Negative (NEGATIVE) Glucose (Fingerstick) 172 mg/dL (70-99) 138 mg/dL (70-99) Urine Collection Type Unknown Urine Color Yellow Urine Clarity Cloudy Urine pH 5.5 Urine Specific [place] 1.015 Urine Protein 100 mg/dL (NEG-TRACE) Urine Glucose (UA) Negative mg/dL (NEG) Urine Ketones (Stick) Negative mg/dL (NEG) Urine Blood Small (NEG) Urine Nitrite Negative (NEG) Urine Bilirubin Negative (NEG) Urine Urobilinogen Dipstick 0.2 mg/dL (0.2 mg/dL) Urine Leukocyte Esterase Large (NEG) Urine RBC 0 /HPF (0-2) Urine WBC Tntc /HPF (0-4) Urine Squamous Epithelial Cells Few /LPF Urine Transitional Epithelial Cells Occ /LPF Urine Renal Epithelial Cells Occ /LPF Urine Bacteria Many /HPF (0-FEW) Urine Hyaline Casts Moderate /HPF Urine Mucus Slight /LPF Test 10/10/18 04:15 10/10/18 07:31 White Blood Count 5.0 x10^3/uL (4.0-11.0) Red Blood Count 4.52 x10^6/uL (3.50-5.40) Hemoglobin 13.1 g/dL (12.0-15.5) Hematocrit 39.4 % (36.0-47.0) Mean Corpuscular Volume 87 fL (79-100) Mean Corpuscular Hemoglobin 29 pg (25-35) Mean Corpuscular Hemoglobin Concent 33 g/dL (31-37) Red Cell Distribution Width 15.7 % (11.5-14.5) Platelet Count 141 x10^3/uL (140-400) Neutrophils (%) (Auto) 66 % (31-73) Lymphocytes (%) (Auto) 22 % (24-48) Monocytes (%) (Auto) 12 % (0-9) Eosinophils (%) (Auto) 0 % (0-3) Basophils (%) (Auto) 0 % (0-3) Neutrophils # (Auto) 3.3 x10^3uL (1.8-7.7) Lymphocytes # (Auto) 1.1 x10^3/uL (1.0-4.8) Monocytes # (Auto) 0.6 x10^3/uL (0.0-1.1) Eosinophils # (Auto) 0.0 x10^3/uL (0.0-0.7) Basophils # (Auto) 0.0 x10^3/uL (0.0-0.2) Sodium Level 141 mmol/L (136-145) Potassium Level 4.2 mmol/L (3.5-5.1) Chloride Level 104 mmol/L (98-107) Carbon Dioxide Level 29 mmol/L (21-32) Anion Gap 8 (6-14) Blood Urea Nitrogen 40 mg/dL (7-20) Creatinine 1.9 mg/dL (0.6-1.0) Estimated GFR (Cockcroft-Gault) 26.0 BUN/Creatinine Ratio 21 (6-20) Glucose Level 103 mg/dL (70-99) Calcium Level 8.2 mg/dL (8.5-10.1) Total Bilirubin 0.3 mg/dL (0.2-1.0) Aspartate Amino Transf (AST/SGOT) 33 U/L (15-37) Alanine Aminotransferase (ALT/SGPT) 23 U/L (14-59) Alkaline Phosphatase 47 U/L (46-116) Total Protein 6.9 g/dL (6.4-8.2) Albumin 2.6 g/dL (3.4-5.0) Albumin/Globulin Ratio 0.6 (1.0-1.7) Glucose (Fingerstick) 90 mg/dL (70-99) Review of Systems Review of Systems Gen: denies fever, chills, complains of fatigue Heart: denies CP, palp Lung: denies cough, SOA Abd: denies N/V/D Assessment and Plan Assessmemt and Plan Assessment: CC: Lethargy, dyspnea, malaise Influenza A positive Acute hypoxic respiratory failure BELINDA DM2 CAD with hx of 11 stents Obesity CHF Plan: Tamiflu 75 BID IVF, follow Cr - nephrology following Breathing treatments PRN PT/OT Home meds Daily labs Appreciate subspecialist input Comment Review of Relevant I have reviewed the following items winnie (where applicable) has been applied. Labs Laboratory Tests Test 10/09/18 11:55 10/09/18 16:48 10/09/18 20:38 10/09/18 22:35 White Blood Count 5.6 x10^3/uL (4.0-11.0) Red Blood Count 4.90 x10^6/uL (3.50-5.40) Hemoglobin 13.9 g/dL (12.0-15.5) Hematocrit 42.9 % (36.0-47.0) Mean Corpuscular Volume 88 fL (79-100) Mean Corpuscular Hemoglobin 28 pg (25-35) Mean Corpuscular Hemoglobin Concent 32 g/dL (31-37) Red Cell Distribution Width 15.6 % (11.5-14.5) Platelet Count 171 x10^3/uL (140-400) Neutrophils (%) (Auto) 69 % (31-73) Lymphocytes (%) (Auto) 19 % (24-48) Monocytes (%) (Auto) 12 % (0-9) Eosinophils (%) (Auto) 0 % (0-3) Basophils (%) (Auto) 0 % (0-3) Neutrophils # (Auto) 3.9 x10^3uL (1.8-7.7) Lymphocytes # (Auto) 1.0 x10^3/uL (1.0-4.8) Monocytes # (Auto) 0.7 x10^3/uL (0.0-1.1) Eosinophils # (Auto) 0.0 x10^3/uL (0.0-0.7) Basophils # (Auto) 0.0 x10^3/uL (0.0-0.2) Prothrombin Time 13.0 SEC (11.7-14.0) Prothromb Time International Ratio 1.0 (0.8-1.1) Sodium Level 135 mmol/L (136-145) Potassium Level 4.6 mmol/L (3.5-5.1) Chloride Level 96 mmol/L (98-107) Carbon Dioxide Level 30 mmol/L (21-32) Anion Gap 9 (6-14) Blood Urea Nitrogen 39 mg/dL (7-20) Creatinine 2.1 mg/dL (0.6-1.0) Estimated GFR (Cockcroft-Gault) 23.2 BUN/Creatinine Ratio 19 (6-20) Glucose Level 294 mg/dL (70-99) Calcium Level 8.5 mg/dL (8.5-10.1) Magnesium Level 2.3 mg/dL (1.8-2.4) Total Bilirubin 0.3 mg/dL (0.2-1.0) Aspartate Amino Transf (AST/SGOT) 38 U/L (15-37) Alanine Aminotransferase (ALT/SGPT) 26 U/L (14-59) Alkaline Phosphatase 53 U/L (46-116) Troponin I Quantitative 0.035 ng/mL (0.000-0.055) HD-Nvt-M-Type Natriuretic Peptide 618 pg/mL (0-124) Total Protein 7.7 g/dL (6.4-8.2) Albumin 3.0 g/dL (3.4-5.0) Albumin/Globulin Ratio 0.6 (1.0-1.7) Lipase 288 U/L (73-393) Influenza Type A Antigen Positive (NEGATIVE) Influenza Type B Antigen Negative (NEGATIVE) Glucose (Fingerstick) 172 mg/dL (70-99) 138 mg/dL (70-99) Urine Collection Type Unknown Urine Color Yellow Urine Clarity Cloudy Urine pH 5.5 Urine Specific [place] 1.015 Urine Protein 100 mg/dL (NEG-TRACE) Urine Glucose (UA) Negative mg/dL (NEG) Urine Ketones (Stick) Negative mg/dL (NEG) Urine Blood Small (NEG) Urine Nitrite Negative (NEG) Urine Bilirubin Negative (NEG) Urine Urobilinogen Dipstick 0.2 mg/dL (0.2 mg/dL) Urine Leukocyte Esterase Large (NEG) Urine RBC 0 /HPF (0-2) Urine WBC Tntc /HPF (0-4) Urine Squamous Epithelial Cells Few /LPF Urine Transitional Epithelial Cells Occ /LPF Urine Renal Epithelial Cells Occ /LPF Urine Bacteria Many /HPF (0-FEW) Urine Hyaline Casts Moderate /HPF Urine Mucus Slight /LPF Test 10/10/18 04:15 10/10/18 07:31 White Blood Count 5.0 x10^3/uL (4.0-11.0) Red Blood Count 4.52 x10^6/uL (3.50-5.40) Hemoglobin 13.1 g/dL (12.0-15.5) Hematocrit 39.4 % (36.0-47.0) Mean Corpuscular Volume 87 fL (79-100) Mean Corpuscular Hemoglobin 29 pg (25-35) Mean Corpuscular Hemoglobin Concent 33 g/dL (31-37) Red Cell Distribution Width 15.7 % (11.5-14.5) Platelet Count 141 x10^3/uL (140-400) Neutrophils (%) (Auto) 66 % (31-73) Lymphocytes (%) (Auto) 22 % (24-48) Monocytes (%) (Auto) 12 % (0-9) Eosinophils (%) (Auto) 0 % (0-3) Basophils (%) (Auto) 0 % (0-3) Neutrophils # (Auto) 3.3 x10^3uL (1.8-7.7) Lymphocytes # (Auto) 1.1 x10^3/uL (1.0-4.8) Monocytes # (Auto) 0.6 x10^3/uL (0.0-1.1) Eosinophils # (Auto) 0.0 x10^3/uL (0.0-0.7) Basophils # (Auto) 0.0 x10^3/uL (0.0-0.2) Sodium Level 141 mmol/L (136-145) Potassium Level 4.2 mmol/L (3.5-5.1) Chloride Level 104 mmol/L (98-107) Carbon Dioxide Level 29 mmol/L (21-32) Anion Gap 8 (6-14) Blood Urea Nitrogen 40 mg/dL (7-20) Creatinine 1.9 mg/dL (0.6-1.0) Estimated GFR (Cockcroft-Gault) 26.0 BUN/Creatinine Ratio 21 (6-20) Glucose Level 103 mg/dL (70-99) Calcium Level 8.2 mg/dL (8.5-10.1) Total Bilirubin 0.3 mg/dL (0.2-1.0) Aspartate Amino Transf (AST/SGOT) 33 U/L (15-37) Alanine Aminotransferase (ALT/SGPT) 23 U/L (14-59) Alkaline Phosphatase 47 U/L (46-116) Total Protein 6.9 g/dL (6.4-8.2) Albumin 2.6 g/dL (3.4-5.0) Albumin/Globulin Ratio 0.6 (1.0-1.7) Glucose (Fingerstick) 90 mg/dL (70-99) Laboratory Tests Test 10/09/18 11:55 10/09/18 16:48 10/09/18 20:38 10/09/18 22:35 White Blood Count 5.6 x10^3/uL (4.0-11.0) Red Blood Count 4.90 x10^6/uL (3.50-5.40) Hemoglobin 13.9 g/dL (12.0-15.5) Hematocrit 42.9 % (36.0-47.0) Mean Corpuscular Volume 88 fL (79-100) Mean Corpuscular Hemoglobin 28 pg (25-35) Mean Corpuscular Hemoglobin Concent 32 g/dL (31-37) Red Cell Distribution Width 15.6 % (11.5-14.5) Platelet Count 171 x10^3/uL (140-400) Neutrophils (%) (Auto) 69 % (31-73) Lymphocytes (%) (Auto) 19 % (24-48) Monocytes (%) (Auto) 12 % (0-9) Eosinophils (%) (Auto) 0 % (0-3) Basophils (%) (Auto) 0 % (0-3) Neutrophils # (Auto) 3.9 x10^3uL (1.8-7.7) Lymphocytes # (Auto) 1.0 x10^3/uL (1.0-4.8) Monocytes # (Auto) 0.7 x10^3/uL (0.0-1.1) Eosinophils # (Auto) 0.0 x10^3/uL (0.0-0.7) Basophils # (Auto) 0.0 x10^3/uL (0.0-0.2) Prothrombin Time 13.0 SEC (11.7-14.0) Prothromb Time International Ratio 1.0 (0.8-1.1) Sodium Level 135 mmol/L (136-145) Potassium Level 4.6 mmol/L (3.5-5.1) Chloride Level 96 mmol/L (98-107) Carbon Dioxide Level 30 mmol/L (21-32) Anion Gap 9 (6-14) Blood Urea Nitrogen 39 mg/dL (7-20) Creatinine 2.1 mg/dL (0.6-1.0) Estimated GFR (Cockcroft-Gault) 23.2 BUN/Creatinine Ratio 19 (6-20) Glucose Level 294 mg/dL (70-99) Calcium Level 8.5 mg/dL (8.5-10.1) Magnesium Level 2.3 mg/dL (1.8-2.4) Total Bilirubin 0.3 mg/dL (0.2-1.0) Aspartate Amino Transf (AST/SGOT) 38 U/L (15-37) Alanine Aminotransferase (ALT/SGPT) 26 U/L (14-59) Alkaline Phosphatase 53 U/L (46-116) Troponin I Quantitative 0.035 ng/mL (0.000-0.055) IB-Oih-R-Type Natriuretic Peptide 618 pg/mL (0-124) Total Protein 7.7 g/dL (6.4-8.2) Albumin 3.0 g/dL (3.4-5.0) Albumin/Globulin Ratio 0.6 (1.0-1.7) Lipase 288 U/L (73-393) Influenza Type A Antigen Positive (NEGATIVE) Influenza Type B Antigen Negative (NEGATIVE) Glucose (Fingerstick) 172 mg/dL (70-99) 138 mg/dL (70-99) Urine Collection Type Unknown Urine Color Yellow Urine Clarity Cloudy Urine pH 5.5 Urine Specific [place] 1.015 Urine Protein 100 mg/dL (NEG-TRACE) Urine Glucose (UA) Negative mg/dL (NEG) Urine Ketones (Stick) Negative mg/dL (NEG) Urine Blood Small (NEG) Urine Nitrite Negative (NEG) Urine Bilirubin Negative (NEG) Urine Urobilinogen Dipstick 0.2 mg/dL (0.2 mg/dL) Urine Leukocyte Esterase Large (NEG) Urine RBC 0 /HPF (0-2) Urine WBC Tntc /HPF (0-4) Urine Squamous Epithelial Cells Few /LPF Urine Transitional Epithelial Cells Occ /LPF Urine Renal Epithelial Cells Occ /LPF Urine Bacteria Many /HPF (0-FEW) Urine Hyaline Casts Moderate /HPF Urine Mucus Slight /LPF Test 10/10/18 04:15 10/10/18 07:31 White Blood Count 5.0 x10^3/uL (4.0-11.0) Red Blood Count 4.52 x10^6/uL (3.50-5.40) Hemoglobin 13.1 g/dL (12.0-15.5) Hematocrit 39.4 % (36.0-47.0) Mean Corpuscular Volume 87 fL (79-100) Mean Corpuscular Hemoglobin 29 pg (25-35) Mean Corpuscular Hemoglobin Concent 33 g/dL (31-37) Red Cell Distribution Width 15.7 % (11.5-14.5) Platelet Count 141 x10^3/uL (140-400) Neutrophils (%) (Auto) 66 % (31-73) Lymphocytes (%) (Auto) 22 % (24-48) Monocytes (%) (Auto) 12 % (0-9) Eosinophils (%) (Auto) 0 % (0-3) Basophils (%) (Auto) 0 % (0-3) Neutrophils # (Auto) 3.3 x10^3uL (1.8-7.7) Lymphocytes # (Auto) 1.1 x10^3/uL (1.0-4.8) Monocytes # (Auto) 0.6 x10^3/uL (0.0-1.1) Eosinophils # (Auto) 0.0 x10^3/uL (0.0-0.7) Basophils # (Auto) 0.0 x10^3/uL (0.0-0.2) Sodium Level 141 mmol/L (136-145) Potassium Level 4.2 mmol/L (3.5-5.1) Chloride Level 104 mmol/L (98-107) Carbon Dioxide Level 29 mmol/L (21-32) Anion Gap 8 (6-14) Blood Urea Nitrogen 40 mg/dL (7-20) Creatinine 1.9 mg/dL (0.6-1.0) Estimated GFR (Cockcroft-Gault) 26.0 BUN/Creatinine Ratio 21 (6-20) Glucose Level 103 mg/dL (70-99) Calcium Level 8.2 mg/dL (8.5-10.1) Total Bilirubin 0.3 mg/dL (0.2-1.0) Aspartate Amino Transf (AST/SGOT) 33 U/L (15-37) Alanine Aminotransferase (ALT/SGPT) 23 U/L (14-59) Alkaline Phosphatase 47 U/L (46-116) Total Protein 6.9 g/dL (6.4-8.2) Albumin 2.6 g/dL (3.4-5.0) Albumin/Globulin Ratio 0.6 (1.0-1.7) Glucose (Fingerstick) 90 mg/dL (70-99) Medications Current Medications Sodium Chloride 500 ml @ 500 mls/hr 1X ONCE IV Last administered on 10/09/18 13:00; Start 10/09/18 at 12:15; Stop 10/09/18 at 13:14; Status DC Albuterol/ Ipratropium (Duoneb) 3 ml 1X ONCE NEB Last administered on 12:55; Start 10/09/18 at 13:00; Stop 10/09/18 at 13:01; Status DC Furosemide (Lasix) 20 mg 1X ONCE IVP Last administered on 10/09/18 13:04; Start 10/09/18 at 13:00; Stop 10/09/18 at 13:01; Status DC Ondansetron HCl (Zofran) 4 mg PRN Q8HRS PRN IV NAUSEA/VOMITING; Start 10/09/18 at 13:45; Stop 10/10/18 at 13:44 Acetaminophen (Tylenol) 650 mg PRN Q4HRS PRN PO FEVER Last administered on 02:31; Start 10/09/18 at 13:45; Stop 10/10/18 at 13:44 Albuterol/ Ipratropium (Duoneb) 3 ml RTQID NEB Last administered on 10/10/18 07 :59; Start 10/09/18 at 16:00; Stop 10/10/18 at 15:59 Insulin Human Lispro (HumaLOG) 0-9 UNITS TIDWMEALS SQ ; Start 10/09/18 at 17:00 Dextrose (Dextrose 50%-Water Syringe) 12.5 gm PRN Q15MIN PRN IV SEE COMMENTS; Start 10/09/18 at 15:00 Insulin Glargine (Lantus) 65 units QHS SQ Last administered on 10/09/18 20:42; Start 10/09/18 at 21:00 Insulin Human Lispro (HumaLOG) 25 units TIDWMEALS SQ Last administered on 17:11; Start 10/09/18 at 17:00 Heparin Sodium (Porcine) (Heparin Sodium) 5,000 unit BID SQ Last administered on 10/10/18 08:35; Start 10/09/18 at 21:00 Sodium Chloride 1,000 ml @ 75 mls/hr [id number] IV Last administered on 10/10/18 05:20; Start 10/09/18 at 16:00 Oseltamivir Phosphate (Tamiflu) 30 mg DAILY PO Last administered on 10/10/18 08 :26; Start 10/09/18 at 16:30; Stop 10/13/18 at 09:01 Aspirin (Ecotrin) 81 mg DAILY PO Last administered on 10/10/18 08:25; Start 10/10/18 at 09:00 Clopidogrel Bisulfate (Plavix) 75 mg DAILY PO Last administered on 10/10/18 08: 26; Start 10/10/18 at 09:00 Cyanocobalamin (Vitamin B-12) 1,000 mcg DAILY PO Last administered on 10/10/18 08:26; Start 10/10/18 at 09:00 Furosemide (Lasix) 40 mg DAILY PO Last administered on 10/10/18 08:26; Start at 09:00 Gabapentin (Neurontin) 400 mg QID PO Last administered on 10/10/18 08:25; Start 10/09/18 at 19:00 Isosorbide Mononitrate (Imdur) 30 mg DAILY PO ; Start 10/10/18 at 09:00 Nitroglycerin (Nitrostat) 0.4 mg PRN Q5MIN PRN SL CHEST PAIN; Start 10/09/18 at 18:45 Calcium/Vitamin D (Oscal D 500mg/ 200uts) 1 tab [id number] PO Last administered on 10/10/18 08:25; Start 10/10/18 at 08:00 Lisinopril (Prinivil) 5 mg DAILY PO ; Start 10/10/18 at 09:00 Metoprolol Succinate (Toprol Xl) 50 mg DAILY PO Last administered on 10/10/18 08:27; Start 10/10/18 at 09:00 Multivitamins (Thera M Plus) 1 tab DAILY PO Last administered on 10/10/18 08:26 ; Start 10/10/18 at 09:00 Fish Oil (Fish Oil) 1,000 mg TID PO Last administered on 10/10/18 08:26; Start 10/09/18 at 21:00 Atorvastatin Calcium (Lipitor) 40 mg QHS PO Last administered on 10/09/18 20:39 ; Start 10/09/18 at 21:00 Zolpidem Tartrate (Ambien) 5 mg PRN QHS PRN PO INSOMNIA, MAY REPEAT X1 Last administered on 10/09/18at 22:26; Start 10/09/18 at 18:45 Ibuprofen (Motrin) 400 mg 1X ONCE PO Last administered on 10/10/18at 04:43; Start 10/10/18 at 05:00; Stop 10/10/18 at 05:01; Status DC Ceftriaxone Sodium (Rocephin) 1 gm Q24H IVP Last administered on 10/10/18at 04:43 ; Start 10/10/18 at 05:00 Lactobacillus Rhamnosus (Culturelle) 1 cap BID PO Last administered on at 08:26; Start 10/10/18 at 09:00 Active Scripts Active Reported Isosorbide Mononitrate Er (Isosorbide Mononitrate) 30 Mg Tab.er.24h 30 Mg PO DAILY Bydureon Pen (Exenatide Microspheres) 2 Mg/0.65 Ml Pen.injctr 2 Mg SQ WEEKLY Ambien (Zolpidem Tartrate) 10 Mg Tablet 10 Mg PO QHS PRN Fish Oil 1,000 mg Softgel ([place]-3/Dha/Epa/Fish Oil) 1,000 Mg Capsule 1,000 Mg PO TID Citracal + D3 Gummies (Calcium Phosphate Trib/Vit D3) 1 Each Tab.chew 1 Each PO DAILY Vitamin B-12 (Cyanocobalamin (Vitamin B-12)) 1,000 Mcg Tablet 1,000 Mcg PO DAILY Alive Once Daily Women 50 Plus (Mv-Mn/Folic Acid/Vit [id number]) 1 Each Tablet 1 Each PO DAILY NITROGLYCERIN SubLingual (Nitroglycerin) 0.4 Mg Tab.subl 0.4 Mg SL PRN Q5MIN PRN Novolog Flexpen (Insulin Aspart) 100 Unit/1 Ml Insuln.pen 25 Unit SQ TIDWMEALS Gabapentin (Gabapentin) 400 Mg Capsule 400 Mg PO QID Metformin Hcl 1,000 Mg Tablet 1,000 Mg PO BIDWMEALS Crestor (Rosuvastatin Calcium) 10 Mg Tablet 10 Mg PO HS Lasix (Furosemide) 40 Mg Tablet 40 Mg PO DAILY Aspir-Low (Aspirin) 81 Mg Tablet.dr 81 Mg PO DAILY Clopidogrel (Clopidogrel Bisulfate) 75 Mg Tablet 75 Mg PO DAILY Toprol Xl (Metoprolol Succinate) 50 Mg Tab.er.24h 50 Mg PO DAILY Zestril (Lisinopril) 5 Mg Tablet 5 Mg PO DAILY Vitals/I & O Vital Sign - Last 24 Hours 10/09/18 10/09/18 10/09/18 10/09/18 12:08 12:56 13:00 14:40 Temp 99.8 99.8 Pulse 90 84 Resp 18 B/P (MAP) 135/60 (85) 118/56 (76) Pulse Ox 86 97 O2 Delivery Room Air Nasal Cannula Nasal Cannula Nasal Cannula O2 Flow Rate 3.0 2.0 2.0 10/09/18 10/09/18 10/09/18 10/09/18 14:45 15:49 18:18 19:08 Temp 99.9 99.2 99.9 99.2 Pulse 85 84 Resp 21 20 B/P (MAP) 123/59 (80) 82/34 (50) Pulse Ox 97 94 95 O2 Delivery Nasal Cannula Nasal Cannula Nasal Cannula Nasal Cannula O2 Flow Rate 2.0 3.0 2.0 3.0 10/09/18 10/09/18 10/09/18 10/10/18 19:10 19:58 22:30 03:00 Temp 98.7 102.2 98.7 102.2 Pulse 81 96 Resp 18 20 B/P (MAP) 101/41 (61) 113/66 (82) 148/65 (92) Pulse Ox 97 95 O2 Delivery Nasal Cannula Nasal Cannula Nasal Cannula O2 Flow Rate 3.0 2.0 2.0 10/10/18 10/10/18 10/10/18 07:27 08:00 08:27 Pulse 81 82 Resp 18 B/P (MAP) 113/55 Pulse Ox 95 94 O2 Delivery Nasal Cannula Nasal Cannula O2 Flow Rate 2.0 2.0 Intake and Output 10/09/18 10/09/18 10/10/18 14:59 22:59 06:59 Intake Total 390 ml Output Total 0 ml 1050 ml Balance 390 ml -1050 ml RUBÉN MARTINEZ III DO Oct 10, 2018 10:15
--- NOTE | 2018-10-10 10:58 | PDOC ---
PULMONARY PROGRESS NOTES Subjective PT WITH NO INCREASE SOA FEELS A LITTLE BETTER Vitals Vital Signs Date Time Temp Pulse Resp B/P (MAP) Pulse Ox O2 Delivery O2 Flow Rate FiO2 10/10/18 08:27 82 113/55 10/10/18 08:00 94 Nasal Cannula 2.0 10/10/18 07:27 18 10/10/18 03:00 102.2 102.2 ROS: No Nausea, No Chest Pain, No Abdominal Pain, No Increase Cough General: Alert Lungs: Clear Cardiovascular: S1, S2 Abdomen: Soft Neuro Exam: Alert Extremities: No Edema Skin: Warm Labs Laboratory Tests Test 10/09/18 11:55 10/09/18 16:48 10/09/18 20:38 10/09/18 22:35 White Blood Count 5.6 x10^3/uL (4.0-11.0) Red Blood Count 4.90 x10^6/uL (3.50-5.40) Hemoglobin 13.9 g/dL (12.0-15.5) Hematocrit 42.9 % (36.0-47.0) Mean Corpuscular Volume 88 fL (79-100) Mean Corpuscular Hemoglobin 28 pg (25-35) Mean Corpuscular Hemoglobin Concent 32 g/dL (31-37) Red Cell Distribution Width 15.6 % (11.5-14.5) Platelet Count 171 x10^3/uL (140-400) Neutrophils (%) (Auto) 69 % (31-73) Lymphocytes (%) (Auto) 19 % (24-48) Monocytes (%) (Auto) 12 % (0-9) Eosinophils (%) (Auto) 0 % (0-3) Basophils (%) (Auto) 0 % (0-3) Neutrophils # (Auto) 3.9 x10^3uL (1.8-7.7) Lymphocytes # (Auto) 1.0 x10^3/uL (1.0-4.8) Monocytes # (Auto) 0.7 x10^3/uL (0.0-1.1) Eosinophils # (Auto) 0.0 x10^3/uL (0.0-0.7) Basophils # (Auto) 0.0 x10^3/uL (0.0-0.2) Prothrombin Time 13.0 SEC (11.7-14.0) Prothromb Time International Ratio 1.0 (0.8-1.1) Sodium Level 135 mmol/L (136-145) Potassium Level 4.6 mmol/L (3.5-5.1) Chloride Level 96 mmol/L (98-107) Carbon Dioxide Level 30 mmol/L (21-32) Anion Gap 9 (6-14) Blood Urea Nitrogen 39 mg/dL (7-20) Creatinine 2.1 mg/dL (0.6-1.0) Estimated GFR (Cockcroft-Gault) 23.2 BUN/Creatinine Ratio 19 (6-20) Glucose Level 294 mg/dL (70-99) Calcium Level 8.5 mg/dL (8.5-10.1) Magnesium Level 2.3 mg/dL (1.8-2.4) Total Bilirubin 0.3 mg/dL (0.2-1.0) Aspartate Amino Transf (AST/SGOT) 38 U/L (15-37) Alanine Aminotransferase (ALT/SGPT) 26 U/L (14-59) Alkaline Phosphatase 53 U/L (46-116) Troponin I Quantitative 0.035 ng/mL (0.000-0.055) MZ-[id number]-M-Type Natriuretic Peptide 618 pg/mL (0-124) Total Protein 7.7 g/dL (6.4-8.2) Albumin 3.0 g/dL (3.4-5.0) Albumin/Globulin Ratio 0.6 (1.0-1.7) Lipase 288 U/L (73-393) Influenza Type A Antigen Positive (NEGATIVE) Influenza Type B Antigen Negative (NEGATIVE) Glucose (Fingerstick) 172 mg/dL (70-99) 138 mg/dL (70-99) Urine Collection Type Unknown Urine Color Yellow Urine Clarity Cloudy Urine pH 5.5 Urine Specific [place]rose 1.015 Urine Protein 100 mg/dL (NEG-TRACE) Urine Glucose (UA) Negative mg/dL (NEG) Urine Ketones (Stick) Negative mg/dL (NEG) Urine Blood Small (NEG) Urine Nitrite Negative (NEG) Urine Bilirubin Negative (NEG) Urine Urobilinogen Dipstick 0.2 mg/dL (0.2 mg/dL) Urine Leukocyte Esterase Large (NEG) Urine RBC 0 /HPF (0-2) Urine WBC Tntc /HPF (0-4) Urine Squamous Epithelial Cells Few /LPF Urine Transitional Epithelial Cells Occ /LPF Urine Renal Epithelial Cells Occ /LPF Urine Bacteria Many /HPF (0-FEW) Urine Hyaline Casts Moderate /HPF Urine Mucus Slight /LPF Test 10/10/18 04:15 10/10/18 07:31 White Blood Count 5.0 x10^3/uL (4.0-11.0) Red Blood Count 4.52 x10^6/uL (3.50-5.40) Hemoglobin 13.1 g/dL (12.0-15.5) Hematocrit 39.4 % (36.0-47.0) Mean Corpuscular Volume 87 fL (79-100) Mean Corpuscular Hemoglobin 29 pg (25-35) Mean Corpuscular Hemoglobin Concent 33 g/dL (31-37) Red Cell Distribution Width 15.7 % (11.5-14.5) Platelet Count 141 x10^3/uL (140-400) Neutrophils (%) (Auto) 66 % (31-73) Lymphocytes (%) (Auto) 22 % (24-48) Monocytes (%) (Auto) 12 % (0-9) Eosinophils (%) (Auto) 0 % (0-3) Basophils (%) (Auto) 0 % (0-3) Neutrophils # (Auto) 3.3 x10^3uL (1.8-7.7) Lymphocytes # (Auto) 1.1 x10^3/uL (1.0-4.8) Monocytes # (Auto) 0.6 x10^3/uL (0.0-1.1) Eosinophils # (Auto) 0.0 x10^3/uL (0.0-0.7) Basophils # (Auto) 0.0 x10^3/uL (0.0-0.2) Sodium Level 141 mmol/L (136-145) Potassium Level 4.2 mmol/L (3.5-5.1) Chloride Level 104 mmol/L (98-107) Carbon Dioxide Level 29 mmol/L (21-32) Anion Gap 8 (6-14) Blood Urea Nitrogen 40 mg/dL (7-20) Creatinine 1.9 mg/dL (0.6-1.0) Estimated GFR (Cockcroft-Gault) 26.0 BUN/Creatinine Ratio 21 (6-20) Glucose Level 103 mg/dL (70-99) Calcium Level 8.2 mg/dL (8.5-10.1) Total Bilirubin 0.3 mg/dL (0.2-1.0) Aspartate Amino Transf (AST/SGOT) 33 U/L (15-37) Alanine Aminotransferase (ALT/SGPT) 23 U/L (14-59) Alkaline Phosphatase 47 U/L (46-116) Total Protein 6.9 g/dL (6.4-8.2) Albumin 2.6 g/dL (3.4-5.0) Albumin/Globulin Ratio 0.6 (1.0-1.7) Glucose (Fingerstick) 90 mg/dL (70-99) Laboratory Tests Test 10/09/18 11:55 10/09/18 16:48 10/09/18 20:38 10/09/18 22:35 White Blood Count 5.6 x10^3/uL (4.0-11.0) Red Blood Count 4.90 x10^6/uL (3.50-5.40) Hemoglobin 13.9 g/dL (12.0-15.5) Hematocrit 42.9 % (36.0-47.0) Mean Corpuscular Volume 88 fL (79-100) Mean Corpuscular Hemoglobin 28 pg (25-35) Mean Corpuscular Hemoglobin Concent 32 g/dL (31-37) Red Cell Distribution Width 15.6 % (11.5-14.5) Platelet Count 171 x10^3/uL (140-400) Neutrophils (%) (Auto) 69 % (31-73) Lymphocytes (%) (Auto) 19 % (24-48) Monocytes (%) (Auto) 12 % (0-9) Eosinophils (%) (Auto) 0 % (0-3) Basophils (%) (Auto) 0 % (0-3) Neutrophils # (Auto) 3.9 x10^3uL (1.8-7.7) Lymphocytes # (Auto) 1.0 x10^3/uL (1.0-4.8) Monocytes # (Auto) 0.7 x10^3/uL (0.0-1.1) Eosinophils # (Auto) 0.0 x10^3/uL (0.0-0.7) Basophils # (Auto) 0.0 x10^3/uL (0.0-0.2) Prothrombin Time 13.0 SEC (11.7-14.0) Prothromb Time International Ratio 1.0 (0.8-1.1) Sodium Level 135 mmol/L (136-145) Potassium Level 4.6 mmol/L (3.5-5.1) Chloride Level 96 mmol/L (98-107) Carbon Dioxide Level 30 mmol/L (21-32) Anion Gap 9 (6-14) Blood Urea Nitrogen 39 mg/dL (7-20) Creatinine 2.1 mg/dL (0.6-1.0) Estimated GFR (Cockcroft-Gault) 23.2 BUN/Creatinine Ratio 19 (6-20) Glucose Level 294 mg/dL (70-99) Calcium Level 8.5 mg/dL (8.5-10.1) Magnesium Level 2.3 mg/dL (1.8-2.4) Total Bilirubin 0.3 mg/dL (0.2-1.0) Aspartate Amino Transf (AST/SGOT) 38 U/L (15-37) Alanine Aminotransferase (ALT/SGPT) 26 U/L (14-59) Alkaline Phosphatase 53 U/L (46-116) Troponin I Quantitative 0.035 ng/mL (0.000-0.055) KB-Rpg-B-Type Natriuretic Peptide 618 pg/mL (0-124) Total Protein 7.7 g/dL (6.4-8.2) Albumin 3.0 g/dL (3.4-5.0) Albumin/Globulin Ratio 0.6 (1.0-1.7) Lipase 288 U/L (73-393) Influenza Type A Antigen Positive (NEGATIVE) Influenza Type B Antigen Negative (NEGATIVE) Glucose (Fingerstick) 172 mg/dL (70-99) 138 mg/dL (70-99) Urine Collection Type Unknown Urine Color Yellow Urine Clarity Cloudy Urine pH 5.5 Urine Specific Primrose 1.015 Urine Protein 100 mg/dL (NEG-TRACE) Urine Glucose (UA) Negative mg/dL (NEG) Urine Ketones (Stick) Negative mg/dL (NEG) Urine Blood Small (NEG) Urine Nitrite Negative (NEG) Urine Bilirubin Negative (NEG) Urine Urobilinogen Dipstick 0.2 mg/dL (0.2 mg/dL) Urine Leukocyte Esterase Large (NEG) Urine RBC 0 /HPF (0-2) Urine WBC Tntc /HPF (0-4) Urine Squamous Epithelial Cells Few /LPF Urine Transitional Epithelial Cells Occ /LPF Urine Renal Epithelial Cells Occ /LPF Urine Bacteria Many /HPF (0-FEW) Urine Hyaline Casts Moderate /HPF Urine Mucus Slight /LPF Test 10/10/18 04:15 10/10/18 07:31 White Blood Count 5.0 x10^3/uL (4.0-11.0) Red Blood Count 4.52 x10^6/uL (3.50-5.40) Hemoglobin 13.1 g/dL (12.0-15.5) Hematocrit 39.4 % (36.0-47.0) Mean Corpuscular Volume 87 fL (79-100) Mean Corpuscular Hemoglobin 29 pg (25-35) Mean Corpuscular Hemoglobin Concent 33 g/dL (31-37) Red Cell Distribution Width 15.7 % (11.5-14.5) Platelet Count 141 x10^3/uL (140-400) Neutrophils (%) (Auto) 66 % (31-73) Lymphocytes (%) (Auto) 22 % (24-48) Monocytes (%) (Auto) 12 % (0-9) Eosinophils (%) (Auto) 0 % (0-3) Basophils (%) (Auto) 0 % (0-3) Neutrophils # (Auto) 3.3 x10^3uL (1.8-7.7) Lymphocytes # (Auto) 1.1 x10^3/uL (1.0-4.8) Monocytes # (Auto) 0.6 x10^3/uL (0.0-1.1) Eosinophils # (Auto) 0.0 x10^3/uL (0.0-0.7) Basophils # (Auto) 0.0 x10^3/uL (0.0-0.2) Sodium Level 141 mmol/L (136-145) Potassium Level 4.2 mmol/L (3.5-5.1) Chloride Level 104 mmol/L (98-107) Carbon Dioxide Level 29 mmol/L (21-32) Anion Gap 8 (6-14) Blood Urea Nitrogen 40 mg/dL (7-20) Creatinine 1.9 mg/dL (0.6-1.0) Estimated GFR (Cockcroft-Gault) 26.0 BUN/Creatinine Ratio 21 (6-20) Glucose Level 103 mg/dL (70-99) Calcium Level 8.2 mg/dL (8.5-10.1) Total Bilirubin 0.3 mg/dL (0.2-1.0) Aspartate Amino Transf (AST/SGOT) 33 U/L (15-37) Alanine Aminotransferase (ALT/SGPT) 23 U/L (14-59) Alkaline Phosphatase 47 U/L (46-116) Total Protein 6.9 g/dL (6.4-8.2) Albumin 2.6 g/dL (3.4-5.0) Albumin/Globulin Ratio 0.6 (1.0-1.7) Glucose (Fingerstick) 90 mg/dL (70-99) Medications Active Scripts Medications Dose Route/Sig Max Daily Dose Days Date Category Isosorbide Mononitrate Er (Isosorbide Mononitrate) 30 Mg Tab.er.24h 30 Mg PO DAILY 10/09/18 Reported Bydureon Pen (Exenatide Microspheres) 2 Mg/0.65 Ml Pen.injctr 2 Mg SQ WEEKLY 10/09/18 Reported Ambien (Zolpidem Tartrate) 10 Mg Tablet 10 Mg PO QHS PRN 10/09/18 Reported Fish Oil 1,000 mg Softgel ([place]-3/Dha/Epa/Fish Oil) 1,000 Mg Capsule 1,000 Mg PO TID 10/09/18 Reported Citracal + D3 Gummies (Calcium Phosphate Trib/Vit D3) 1 Each Tab.chew 1 Each PO DAILY 10/09/18 Reported Vitamin B-12 (Cyanocobalamin (Vitamin B-12)) 1,000 Mcg Tablet 1,000 Mcg PO DAILY 10/09/18 Reported Alive Once Daily Women 50 Plus (Mv-Mn/Folic Acid/Vit K/Svev311) 1 Each Tablet 1 Each PO DAILY 10/09/18 Reported NITROGLYCERIN SubLingual (Nitroglycerin) 0.4 Mg Tab.subl 0.4 Mg SL PRN Q5MIN PRN 10/09/18 Reported Novolog Flexpen (Insulin Aspart) 100 Unit/1 Ml Insuln.pen 25 Unit SQ TIDWMEALS 10/09/18 Reported Gabapentin (Gabapentin) 400 Mg Capsule 400 Mg PO QID 10/09/18 Reported Metformin Hcl 1,000 Mg Tablet 1,000 Mg PO BIDWMEALS 10/09/18 Reported Crestor (Rosuvastatin Calcium) 10 Mg Tablet 10 Mg PO HS 10/09/18 Reported Lasix (Furosemide) 40 Mg Tablet 40 Mg PO DAILY 10/09/18 Reported Aspir-Low (Aspirin) 81 Mg Tablet.dr 81 Mg PO DAILY 10/09/18 Reported Clopidogrel (Clopidogrel Bisulfate) 75 Mg Tablet 75 Mg PO DAILY 10/09/18 Reported Toprol Xl (Metoprolol Succinate) 50 Mg Tab.er.24h 50 Mg PO DAILY 10/09/18 Reported Zestril (Lisinopril) 5 Mg Tablet 5 Mg PO DAILY 10/09/18 Reported Impression . IMPRESSION: 1. Abnormal x-ray revealing left lower lobe atelectasis. 2. Tobacco dependence, in remission, questionable mild chronic obstructive pulmonary disease. 3. Positive influenza A. 4. Renal insufficiency, suspect chronic on acute. 5. Diabetes. 6. Coronary artery disease. Plan . CONTINUE SUPPORT HOME ON 10/11 1. We will continue support with IV fluids. 2. Tamiflu. 3. No need for antibiotics. 4. Nebulized treatments. ALESSANDRO VELAZQUEZ MD Oct 10, 2018 10:58
[2018-10-10 11:00] VITALS: BP 90/49
[2018-10-10] MEDS ORDERED: IV NORMAL SALINE 1000ML BAG 1,000 ML IV ONE (13:00)
--- NOTE | 2018-10-10 13:01 | NUR ---
Approximately 1215, patients heart rate on the monitor was 150's and afib. Entered room to assess patient. Patient stated she could not feel heart beating fast or irregular. Took b/P which read 91/52. Called [employer] for possible positive sepsis. Was advised to give 1 Liter fluid bolus to improve B/P and kidney function and reassess B/P after liter is complete. Monitor heart rate. Pgd doctor to inform and await more orders
[2018-10-10 15:00] VITALS: BP 107/54
[2018-10-10] MEDS: ISOSORBIDE MONONITRATE ER 30 MG TAB.ER.24H PO SCH (16:53)
[2018-10-10 19:40] VITALS: BP 109/55
[2018-10-10] MEDS: ATORVASTATIN CALCIUM 40 MG TABLET. PO SCH (20:58)
[2018-10-10] MEDS: INSULIN GLARGINE 300 UNITS/3 ML INSULN.PEN. SQ SCH (21:08)
[2018-10-10 23:05] VITALS: BP 152/67
[2018-10-11 03:07] LABS: HEMOGLOBIN A1C 7.7 % (4.8-5.6)
[2018-10-11] MEDS ORDERED: ACETAMINOPHEN 325 MG TABLET. PO PRN (03:30)
[2018-10-11 03:45] VITALS: BP 139/45
[2018-10-11] MEDS: cefTRIAXone IV Push 1 GM VIAL. IVP SCH (06:00)
[2018-10-11 07:22] LABS: BASO % 0 % (0-3); EOS % 0 % (0-3); HEMATOCRIT 37.9 % (36.0-47.0); HEMOGLOBIN 12.1 g/dL (12.0-15.5); LYMPH # 1.7 x10^3/uL (1.0-4.8); LYMPH % 39 % (24-48); MEAN CORPUSCULAR HEMOGLOBIN 28 pg (25-35); MEAN CORPUSCULAR HGB CONC 32 g/dL (31-37); MEAN CORPUSCULAR VOLUME 88 fL (79-100); MONO # 0.5 x10^3/uL (0.0-1.1); MONO % 11 % (0-9); NEUT # 2.2 x10^3uL (1.8-7.7); NEUT % 50 % (31-73); PLATELET COUNT 148 x10^3/uL (140-400); RED BLOOD COUNT 4.29 x10^6/uL (3.50-5.40); RED CELL DISTRIBUTION WIDTH 15.8 % (11.5-14.5); WHITE BLOOD COUNT 4.5 x10^3/uL (4.0-11.0)
[2018-10-11 07:41] LABS: ALBUMIN 2.4 g/dL (3.4-5.0); ALBUMIN/GLOBULIN RATIO 0.6 (1.0-1.7); CALCIUM 8.3 mg/dL (8.5-10.1); CREATININE 1.6 mg/dL (0.6-1.0); GFR 31.7; POTASSIUM 4.4 mmol/L (3.5-5.1); TOTAL BILIRUBIN 0.1 mg/dL (0.2-1.0); TOTAL PROTEIN 6.5 g/dL (6.4-8.2)
[2018-10-11 07:42] VITALS: BP 111/51
[2018-10-11] MEDS: INSULIN LISPRO 300 UNITS/3 ML INSULN.PEN. SQ SCH ×4 (08:00→12:00)
[2018-10-11] MEDS: GABAPENTIN 400 MG CAPSULE. PO SCH ×2 (08:50→13:00)
[2018-10-11] MEDS: CYANOCOBALAMIN (VITAMIN B-12) 1,000 MCG TABLET. PO SCH (08:50)
[2018-10-11] MEDS: MULTIVITAMIN with MINERAL TABLET. PO SCH (08:50)
[2018-10-11] MEDS: CALCIUM CARB/VIT D3 500/200 TABLET. PO SCH (08:50)
[2018-10-11] MEDS: OSELTAMIVIR 30 MG CAPSULE PO SCH (08:50)
[2018-10-11] MEDS: METOPROLOL SUCC 24HR ER 50 MG TAB.ER.24H. PO SCH (08:50)
[2018-10-11] MEDS: LACTOBACILLUS RHAMNOSUS GG 1 CAPSULE. PO SCH (08:50)
[2018-10-11] MEDS: ISOSORBIDE MONONITRATE ER 30 MG TAB.ER.24H PO SCH (08:51)
[2018-10-11] MEDS: CLOPIDOGREL BISULFATE 75 MG TABLET PO SCH (08:51)
[2018-10-11] MEDS: ASPIRIN ENTERIC COATED 81 MG TABLET.DR. PO SCH (08:51)
[2018-10-11] MEDS: FUROSEMIDE 40 MG TABLET. PO SCH (08:51)
[2018-10-11] MEDS: OMEGA-3 FATTY ACIDS/FISH OIL 1,000 MG CAPSULE. PO SCH ×2 (08:51→14:00)
[2018-10-11] MEDS: LISINOPRIL 5 MG TABLET. PO SCH (08:51)
[2018-10-11] MEDS: HEPARIN for SUB-Q USE 5,000 UNIT/ML VIAL. SQ SCH (08:57)
--- NOTE | 2018-10-11 09:11 | NUR ---
IP: Pt is influenza + requiring droplet precautions for 5 days a nd 24 hours without a fever, whichever is longest.
--- NOTE | 2018-10-11 09:47 | PDOC ---
SUBJECTIVE ROS No complaints OBJECTIVE Vital Signs Vital Signs Date Time Temp Pulse Resp B/P (MAP) Pulse Ox O2 Delivery O2 Flow Rate FiO2 10/11/18 08:51 77 111/51 10/11/18 08:00 Nasal Cannula 10/11/18 07:42 99.4 20 95 2.0 99.4 I & 0 Intake and Output 10/11/18 07:00 Intake Total 800 ml Output Total 1500 ml Balance -700 ml Intake Oral 800 ml Output Urine Total 1500 ml # Bowel Movements 2 PHYSICAL EXAM Physical Exam General: No acute distress HEENT: OM moist Lungs: Clear to auscultation, Normal air movement Heart: S1S2, RRR, no murmurs Abdomen: Normal bowel sounds, Soft Extremities: No edema Skin: No rashes Neuro: Grossly Normal DIAGNOSIS/ASSESSMENT Assessment & Plan [place] -- prerenal with dehydration secondary to enhanced gastrointestinal losses, poor oral intake Renal function improving , good uop Pt denies baseline ckd Influenza A Diabetes mellitu Discussed A/P with Pt COMMENT/RELEVANT DATA Meds Current Medications Medications (Trade) Dose Ordered Sig/Mohinder Start Time Stop Time Status Last Admin Dose Admin Acetaminophen (Tylenol) 650 mg PRN Q6HRS PRN 10/11/18 03:30 10/11/18 03:41 650 MG Albuterol/ Ipratropium (Duoneb) 3 ml RTQID 10/09/18 16:00 10/10/18 15:59 DC 10/10/18 11:45 3 ML Aspirin (Ecotrin) 81 mg DAILY 10/10/18 09:00 10/11/18 08:51 81 MG Atorvastatin Calcium (Lipitor) 40 mg QHS 10/09/18 21:00 10/10/18 20:58 40 MG Calcium/Vitamin D (Oscal D 500mg/ 200uts) 1 tab [id number] 10/10/18 08:00 10/11/18 08:50 1 TAB Ceftriaxone Sodium (Rocephin) 1 gm Q24H 10/10/18 05:00 10/11/18 06:00 1 GM Clopidogrel Bisulfate (Plavix) 75 mg DAILY 10/10/18 09:00 10/11/18 08:51 75 MG Cyanocobalamin (Vitamin B-12) 1,000 mcg DAILY 10/10/18 09:00 10/11/18 08:50 1,000 MCG Dextrose (Dextrose 50%-Water Syringe) 12.5 gm PRN Q15MIN PRN 10/09/18 15:00 Fish Oil (Fish Oil) 1,000 mg TID 10/09/18 21:00 10/11/18 08:51 1,000 MG Furosemide (Lasix) 40 mg DAILY 10/10/18 09:00 10/11/18 08:51 40 MG Gabapentin (Neurontin) 400 mg QID 10/09/18 19:00 10/11/18 08:50 400 MG Heparin Sodium (Porcine) (Heparin Sodium) 5,000 unit BID 10/09/18 21:00 10/11/18 08:57 5,000 UNIT Ibuprofen (Motrin) 400 mg 1X ONCE 10/10/18 05:00 10/10/18 05:01 DC 10/10/18 04:43 400 MG Insulin Glargine (Lantus) 65 units QHS 10/09/18 21:00 10/10/18 21:08 58 UNITS Insulin Human Lispro (HumaLOG) 25 units TIDWMEALS 10/09/18 17:00 10/10/18 16:57 15 UNITS Isosorbide Mononitrate (Imdur) 30 mg DAILY 10/10/18 09:00 10/11/18 08:51 30 MG Lactobacillus Rhamnosus (Culturelle) 1 cap BID 10/10/18 09:00 10/11/18 08:50 1 CAP Lisinopril (Prinivil) 5 mg DAILY 10/10/18 09:00 10/11/18 08:51 5 MG Metoprolol Succinate (Toprol Xl) 50 mg DAILY 10/10/18 09:00 10/11/18 08:50 50 MG Multivitamins (Thera M Plus) 1 tab DAILY 10/10/18 09:00 10/11/18 08:50 1 TAB Nitroglycerin (Nitrostat) 0.4 mg PRN Q5MIN PRN 10/09/18 18:45 Ondansetron HCl (Zofran) 4 mg PRN Q8HRS PRN 10/09/18 13:45 10/10/18 13:44 DC Oseltamivir Phosphate (Tamiflu) 30 mg DAILY 10/09/18 16:30 10/13/18 09:01 10/11/18 08:50 30 MG Sodium Chloride 1,000 ml @ 250 mls/hr 1X ONCE 10/10/18 13:00 10/10/18 16:59 DC 10/10/18 13:16 250 MLS/HR Zolpidem Tartrate (Ambien) 5 mg PRN QHS PRN 10/09/18 18:45 10/09/18 22:26 5 MG Lab Laboratory Tests Test 10/10/18 10:49 10/10/18 11:50 10/10/18 16:48 10/10/18 20:40 Glucose (Fingerstick) 135 mg/dL (70-99) 171 mg/dL (70-99) 122 mg/dL (70-99) Lactic Acid Level 1.0 mmol/L (0.4-2.0) Test 10/11/18 06:11 10/11/18 07:21 White Blood Count 4.5 x10^3/uL (4.0-11.0) Red Blood Count 4.29 x10^6/uL (3.50-5.40) Hemoglobin 12.1 g/dL (12.0-15.5) Hematocrit 37.9 % (36.0-47.0) Mean Corpuscular Volume 88 fL (79-100) Mean Corpuscular Hemoglobin 28 pg (25-35) Mean Corpuscular Hemoglobin Concent 32 g/dL (31-37) Red Cell Distribution Width 15.8 % (11.5-14.5) Platelet Count 148 x10^3/uL (140-400) Neutrophils (%) (Auto) 50 % (31-73) Lymphocytes (%) (Auto) 39 % (24-48) Monocytes (%) (Auto) 11 % (0-9) Eosinophils (%) (Auto) 0 % (0-3) Basophils (%) (Auto) 0 % (0-3) Neutrophils # (Auto) 2.2 x10^3uL (1.8-7.7) Lymphocytes # (Auto) 1.7 x10^3/uL (1.0-4.8) Monocytes # (Auto) 0.5 x10^3/uL (0.0-1.1) Eosinophils # (Auto) 0.0 x10^3/uL (0.0-0.7) Basophils # (Auto) 0.0 x10^3/uL (0.0-0.2) Sodium Level 142 mmol/L (136-145) Potassium Level 4.4 mmol/L (3.5-5.1) Chloride Level 106 mmol/L (98-107) Carbon Dioxide Level 28 mmol/L (21-32) Anion Gap 8 (6-14) Blood Urea Nitrogen 28 mg/dL (7-20) Creatinine 1.6 mg/dL (0.6-1.0) Estimated GFR (Cockcroft-Gault) 31.7 BUN/Creatinine Ratio 18 (6-20) Glucose Level 112 mg/dL (70-99) Calcium Level 8.3 mg/dL (8.5-10.1) Total Bilirubin 0.1 mg/dL (0.2-1.0) Aspartate Amino Transf (AST/SGOT) 32 U/L (15-37) Alanine Aminotransferase (ALT/SGPT) 20 U/L (14-59) Alkaline Phosphatase 45 U/L (46-116) Total Protein 6.5 g/dL (6.4-8.2) Albumin 2.4 g/dL (3.4-5.0) Albumin/Globulin Ratio 0.6 (1.0-1.7) Glucose (Fingerstick) 107 mg/dL (70-99) Results All relevant outside records, renal labs, imaging studies, telemetry/EKG's were reviewed. EDDIE OLIVAS MD Oct 11, 2018 09:47
--- NOTE | 2018-10-11 09:55 | PDOC ---
PULMONARY PROGRESS NOTES Subjective PT FEELS BETTER LESS COUGH Vitals Vital Signs Date Time Temp Pulse Resp B/P (MAP) Pulse Ox O2 Delivery O2 Flow Rate FiO2 10/11/18 08:51 77 111/51 10/11/18 08:00 Nasal Cannula 10/11/18 07:42 99.4 20 95 2.0 99.4 ROS: No Nausea, No Chest Pain, No Abdominal Pain, No Increase Cough General: Alert Lungs: Clear Cardiovascular: S1, S2 Abdomen: Soft Neuro Exam: Alert Extremities: No Edema Skin: Warm Labs Laboratory Tests Test 10/09/18 11:55 10/09/18 16:48 10/09/18 20:38 10/09/18 22:35 White Blood Count 5.6 x10^3/uL (4.0-11.0) Red Blood Count 4.90 x10^6/uL (3.50-5.40) Hemoglobin 13.9 g/dL (12.0-15.5) Hematocrit 42.9 % (36.0-47.0) Mean Corpuscular Volume 88 fL (79-100) Mean Corpuscular Hemoglobin 28 pg (25-35) Mean Corpuscular Hemoglobin Concent 32 g/dL (31-37) Red Cell Distribution Width 15.6 % (11.5-14.5) Platelet Count 171 x10^3/uL (140-400) Neutrophils (%) (Auto) 69 % (31-73) Lymphocytes (%) (Auto) 19 % (24-48) Monocytes (%) (Auto) 12 % (0-9) Eosinophils (%) (Auto) 0 % (0-3) Basophils (%) (Auto) 0 % (0-3) Neutrophils # (Auto) 3.9 x10^3uL (1.8-7.7) Lymphocytes # (Auto) 1.0 x10^3/uL (1.0-4.8) Monocytes # (Auto) 0.7 x10^3/uL (0.0-1.1) Eosinophils # (Auto) 0.0 x10^3/uL (0.0-0.7) Basophils # (Auto) 0.0 x10^3/uL (0.0-0.2) Prothrombin Time 13.0 SEC (11.7-14.0) Prothromb Time International Ratio 1.0 (0.8-1.1) Sodium Level 135 mmol/L (136-145) Potassium Level 4.6 mmol/L (3.5-5.1) Chloride Level 96 mmol/L (98-107) Carbon Dioxide Level 30 mmol/L (21-32) Anion Gap 9 (6-14) Blood Urea Nitrogen 39 mg/dL (7-20) Creatinine 2.1 mg/dL (0.6-1.0) Estimated GFR (Cockcroft-Gault) 23.2 BUN/Creatinine Ratio 19 (6-20) Glucose Level 294 mg/dL (70-99) Calcium Level 8.5 mg/dL (8.5-10.1) Magnesium Level 2.3 mg/dL (1.8-2.4) Total Bilirubin 0.3 mg/dL (0.2-1.0) Aspartate Amino Transf (AST/SGOT) 38 U/L (15-37) Alanine Aminotransferase (ALT/SGPT) 26 U/L (14-59) Alkaline Phosphatase 53 U/L (46-116) Troponin I Quantitative 0.035 ng/mL (0.000-0.055) WE-Wap-Q-Type Natriuretic Peptide 618 pg/mL (0-124) Total Protein 7.7 g/dL (6.4-8.2) Albumin 3.0 g/dL (3.4-5.0) Albumin/Globulin Ratio 0.6 (1.0-1.7) Lipase 288 U/L (73-393) Influenza Type A Antigen Positive (NEGATIVE) Influenza Type B Antigen Negative (NEGATIVE) Glucose (Fingerstick) 172 mg/dL (70-99) 138 mg/dL (70-99) Urine Collection Type Unknown Urine Color Yellow Urine Clarity Cloudy Urine pH 5.5 Urine Specific [place]rey 1.015 Urine Protein 100 mg/dL (NEG-TRACE) Urine Glucose (UA) Negative mg/dL (NEG) Urine Ketones (Stick) Negative mg/dL (NEG) Urine Blood Small (NEG) Urine Nitrite Negative (NEG) Urine Bilirubin Negative (NEG) Urine Urobilinogen Dipstick 0.2 mg/dL (0.2 mg/dL) Urine Leukocyte Esterase Large (NEG) Urine RBC 0 /HPF (0-2) Urine WBC Tntc /HPF (0-4) Urine Squamous Epithelial Cells Few /LPF Urine Transitional Epithelial Cells Occ /LPF Urine Renal Epithelial Cells Occ /LPF Urine Bacteria Many /HPF (0-FEW) Urine Hyaline Casts Moderate /HPF Urine Mucus Slight /LPF Test 10/10/18 04:15 10/10/18 07:31 10/10/18 10:49 10/10/18 11:50 White Blood Count 5.0 x10^3/uL (4.0-11.0) Red Blood Count 4.52 x10^6/uL (3.50-5.40) Hemoglobin 13.1 g/dL (12.0-15.5) Hematocrit 39.4 % (36.0-47.0) Mean Corpuscular Volume 87 fL (79-100) Mean Corpuscular Hemoglobin 29 pg (25-35) Mean Corpuscular Hemoglobin Concent 33 g/dL (31-37) Red Cell Distribution Width 15.7 % (11.5-14.5) Platelet Count 141 x10^3/uL (140-400) Neutrophils (%) (Auto) 66 % (31-73) Lymphocytes (%) (Auto) 22 % (24-48) Monocytes (%) (Auto) 12 % (0-9) Eosinophils (%) (Auto) 0 % (0-3) Basophils (%) (Auto) 0 % (0-3) Neutrophils # (Auto) 3.3 x10^3uL (1.8-7.7) Lymphocytes # (Auto) 1.1 x10^3/uL (1.0-4.8) Monocytes # (Auto) 0.6 x10^3/uL (0.0-1.1) Eosinophils # (Auto) 0.0 x10^3/uL (0.0-0.7) Basophils # (Auto) 0.0 x10^3/uL (0.0-0.2) Sodium Level 141 mmol/L (136-145) Potassium Level 4.2 mmol/L (3.5-5.1) Chloride Level 104 mmol/L (98-107) Carbon Dioxide Level 29 mmol/L (21-32) Anion Gap 8 (6-14) Blood Urea Nitrogen 40 mg/dL (7-20) Creatinine 1.9 mg/dL (0.6-1.0) Estimated GFR (Cockcroft-Gault) 26.0 BUN/Creatinine Ratio 21 (6-20) Glucose Level 103 mg/dL (70-99) Hemoglobin A1c 7.7 % (4.8-5.6) Calcium Level 8.2 mg/dL (8.5-10.1) Total Bilirubin 0.3 mg/dL (0.2-1.0) Aspartate Amino Transf (AST/SGOT) 33 U/L (15-37) Alanine Aminotransferase (ALT/SGPT) 23 U/L (14-59) Alkaline Phosphatase 47 U/L (46-116) Total Protein 6.9 g/dL (6.4-8.2) Albumin 2.6 g/dL (3.4-5.0) Albumin/Globulin Ratio 0.6 (1.0-1.7) Glucose (Fingerstick) 90 mg/dL (70-99) 135 mg/dL (70-99) Lactic Acid Level 1.0 mmol/L (0.4-2.0) Test 10/10/18 16:48 10/10/18 20:40 10/11/18 06:11 10/11/18 07:21 Glucose (Fingerstick) 171 mg/dL (70-99) 122 mg/dL (70-99) 107 mg/dL (70-99) White Blood Count 4.5 x10^3/uL (4.0-11.0) Red Blood Count 4.29 x10^6/uL (3.50-5.40) Hemoglobin 12.1 g/dL (12.0-15.5) Hematocrit 37.9 % (36.0-47.0) Mean Corpuscular Volume 88 fL (79-100) Mean Corpuscular Hemoglobin 28 pg (25-35) Mean Corpuscular Hemoglobin Concent 32 g/dL (31-37) Red Cell Distribution Width 15.8 % (11.5-14.5) Platelet Count 148 x10^3/uL (140-400) Neutrophils (%) (Auto) 50 % (31-73) Lymphocytes (%) (Auto) 39 % (24-48) Monocytes (%) (Auto) 11 % (0-9) Eosinophils (%) (Auto) 0 % (0-3) Basophils (%) (Auto) 0 % (0-3) Neutrophils # (Auto) 2.2 x10^3uL (1.8-7.7) Lymphocytes # (Auto) 1.7 x10^3/uL (1.0-4.8) Monocytes # (Auto) 0.5 x10^3/uL (0.0-1.1) Eosinophils # (Auto) 0.0 x10^3/uL (0.0-0.7) Basophils # (Auto) 0.0 x10^3/uL (0.0-0.2) Sodium Level 142 mmol/L (136-145) Potassium Level 4.4 mmol/L (3.5-5.1) Chloride Level 106 mmol/L (98-107) Carbon Dioxide Level 28 mmol/L (21-32) Anion Gap 8 (6-14) Blood Urea Nitrogen 28 mg/dL (7-20) Creatinine 1.6 mg/dL (0.6-1.0) Estimated GFR (Cockcroft-Gault) 31.7 BUN/Creatinine Ratio 18 (6-20) Glucose Level 112 mg/dL (70-99) Calcium Level 8.3 mg/dL (8.5-10.1) Total Bilirubin 0.1 mg/dL (0.2-1.0) Aspartate Amino Transf (AST/SGOT) 32 U/L (15-37) Alanine Aminotransferase (ALT/SGPT) 20 U/L (14-59) Alkaline Phosphatase 45 U/L (46-116) Total Protein 6.5 g/dL (6.4-8.2) Albumin 2.4 g/dL (3.4-5.0) Albumin/Globulin Ratio 0.6 (1.0-1.7) Laboratory Tests Test 10/10/18 10:49 10/10/18 11:50 10/10/18 16:48 10/10/18 20:40 Glucose (Fingerstick) 135 mg/dL (70-99) 171 mg/dL (70-99) 122 mg/dL (70-99) Lactic Acid Level 1.0 mmol/L (0.4-2.0) Test 10/11/18 06:11 10/11/18 07:21 White Blood Count 4.5 x10^3/uL (4.0-11.0) Red Blood Count 4.29 x10^6/uL (3.50-5.40) Hemoglobin 12.1 g/dL (12.0-15.5) Hematocrit 37.9 % (36.0-47.0) Mean Corpuscular Volume 88 fL (79-100) Mean Corpuscular Hemoglobin 28 pg (25-35) Mean Corpuscular Hemoglobin Concent 32 g/dL (31-37) Red Cell Distribution Width 15.8 % (11.5-14.5) Platelet Count 148 x10^3/uL (140-400) Neutrophils (%) (Auto) 50 % (31-73) Lymphocytes (%) (Auto) 39 % (24-48) Monocytes (%) (Auto) 11 % (0-9) Eosinophils (%) (Auto) 0 % (0-3) Basophils (%) (Auto) 0 % (0-3) Neutrophils # (Auto) 2.2 x10^3uL (1.8-7.7) Lymphocytes # (Auto) 1.7 x10^3/uL (1.0-4.8) Monocytes # (Auto) 0.5 x10^3/uL (0.0-1.1) Eosinophils # (Auto) 0.0 x10^3/uL (0.0-0.7) Basophils # (Auto) 0.0 x10^3/uL (0.0-0.2) Sodium Level 142 mmol/L (136-145) Potassium Level 4.4 mmol/L (3.5-5.1) Chloride Level 106 mmol/L (98-107) Carbon Dioxide Level 28 mmol/L (21-32) Anion Gap 8 (6-14) Blood Urea Nitrogen 28 mg/dL (7-20) Creatinine 1.6 mg/dL (0.6-1.0) Estimated GFR (Cockcroft-Gault) 31.7 BUN/Creatinine Ratio 18 (6-20) Glucose Level 112 mg/dL (70-99) Calcium Level 8.3 mg/dL (8.5-10.1) Total Bilirubin 0.1 mg/dL (0.2-1.0) Aspartate Amino Transf (AST/SGOT) 32 U/L (15-37) Alanine Aminotransferase (ALT/SGPT) 20 U/L (14-59) Alkaline Phosphatase 45 U/L (46-116) Total Protein 6.5 g/dL (6.4-8.2) Albumin 2.4 g/dL (3.4-5.0) Albumin/Globulin Ratio 0.6 (1.0-1.7) Glucose (Fingerstick) 107 mg/dL (70-99) Medications Active Scripts Medications Dose Route/Sig Max Daily Dose Days Date Category Isosorbide Mononitrate Er (Isosorbide Mononitrate) 30 Mg Tab.er.24h 30 Mg PO DAILY 10/09/18 Reported Bydureon Pen (Exenatide Microspheres) 2 Mg/0.65 Ml Pen.injctr 2 Mg SQ WEEKLY 10/09/18 Reported Ambien (Zolpidem Tartrate) 10 Mg Tablet 10 Mg PO QHS PRN 10/09/18 Reported Fish Oil 1,000 mg Softgel ([place]-3/Dha/Epa/Fish Oil) 1,000 Mg Capsule 1,000 Mg PO TID 10/09/18 Reported Citracal + D3 Gummies (Calcium Phosphate Trib/Vit D3) 1 Each Tab.chew 1 Each PO DAILY 10/09/18 Reported Vitamin B-12 (Cyanocobalamin (Vitamin B-12)) 1,000 Mcg Tablet 1,000 Mcg PO DAILY 10/09/18 Reported Alive Once Daily Women 50 Plus (Mv-Mn/Folic Acid/Vit K/[id number]) 1 Each Tablet 1 Each PO DAILY 10/09/18 Reported NITROGLYCERIN SubLingual (Nitroglycerin) 0.4 Mg Tab.subl 0.4 Mg SL PRN Q5MIN PRN 10/09/18 Reported Novolog Flexpen (Insulin Aspart) 100 Unit/1 Ml Insuln.pen 25 Unit SQ TIDWMEALS 10/09/18 Reported Gabapentin (Gabapentin) 400 Mg Capsule 400 Mg PO QID 10/09/18 Reported Metformin Hcl 1,000 Mg Tablet 1,000 Mg PO BIDWMEALS 10/09/18 Reported Crestor (Rosuvastatin Calcium) 10 Mg Tablet 10 Mg PO HS 10/09/18 Reported Lasix (Furosemide) 40 Mg Tablet 40 Mg PO DAILY 10/09/18 Reported Aspir-Low (Aspirin) 81 Mg Tablet.dr 81 Mg PO DAILY 10/09/18 Reported Clopidogrel (Clopidogrel Bisulfate) 75 Mg Tablet 75 Mg PO DAILY 10/09/18 Reported Toprol Xl (Metoprolol Succinate) 50 Mg Tab.er.24h 50 Mg PO DAILY 10/09/18 Reported Zestril (Lisinopril) 5 Mg Tablet 5 Mg PO DAILY 10/09/18 Reported Impression . IMPRESSION: 1. Abnormal x-ray revealing left lower lobe atelectasis. 2. Tobacco dependence, in remission, questionable mild chronic obstructive pulmonary disease. 3. Positive influenza A. 4. Renal insufficiency, suspect chronic on acute. 5. Diabetes. 6. Coronary artery disease. Plan . D/W OK TO D/C FOLLOW UP IN MY OFFICE NEEDED ALESSANDRO VELAZQUEZ MD Oct 11, 2018 09:55
--- NOTE | 2018-10-11 10:07 | NUR ---
SS following for discharge planning. SS reviewed pt chart and met with pt in room. Pt is from home with spouse and currently on room air. PT recommended home with home health at discharge. Pt reported being agreeable to home healthcare at discharge and requested [facility], ; fax [phone]. Pt's RN notified. SS will await discharge orders for home healthcare and will proceed accordingly.
[2018-10-11 11:07] VITALS: BP 110/55
--- NOTE | 2018-10-11 12:30 | PDOC ---
PROGRESS NOTES Chief Complaint Chief Complaint CC: Lethargy, dyspnea, malaise Influenza A positive Acute hypoxic respiratory failure BELINDA DM2 CAD with hx of 11 stents Obesity CHF History of Present Illness History of Present Illness Pt is a 72 y/o female who presented with lethargy, dyspnea and malaise. Found to be Influenza A positive. Seen and examined in her room this morning. She is resting in her bed. Her is in the room. Pt admitted to be mildly confused, was unsure of how long she had been in hospital, but when pressed knew she had been hospitalized 3 days. Discussed care with her RN. Vitals Vitals Vital Signs Date Time Temp Pulse Resp B/P (MAP) Pulse Ox O2 Delivery O2 Flow Rate FiO2 10/11/18 11:07 98.7 71 20 110/55 (73) 94 Nasal Cannula 2.0 98.7 Physical Exam General: Alert, Oriented X3, Cooperative, No acute distress Heart: Regular rate, No murmurs Lungs: Clear Abdomen: Normal bowel sounds, Soft Extremities: No clubbing, No cyanosis, Normal pulses, Other (tr edema) Skin: No rashes, No significant lesion Labs LABS Laboratory Tests Test 10/10/18 16:48 10/10/18 20:40 10/11/18 06:11 10/11/18 07:21 Glucose (Fingerstick) 171 mg/dL (70-99) 122 mg/dL (70-99) 107 mg/dL (70-99) White Blood Count 4.5 x10^3/uL (4.0-11.0) Red Blood Count 4.29 x10^6/uL (3.50-5.40) Hemoglobin 12.1 g/dL (12.0-15.5) Hematocrit 37.9 % (36.0-47.0) Mean Corpuscular Volume 88 fL (79-100) Mean Corpuscular Hemoglobin 28 pg (25-35) Mean Corpuscular Hemoglobin Concent 32 g/dL (31-37) Red Cell Distribution Width 15.8 % (11.5-14.5) Platelet Count 148 x10^3/uL (140-400) Neutrophils (%) (Auto) 50 % (31-73) Lymphocytes (%) (Auto) 39 % (24-48) Monocytes (%) (Auto) 11 % (0-9) Eosinophils (%) (Auto) 0 % (0-3) Basophils (%) (Auto) 0 % (0-3) Neutrophils # (Auto) 2.2 x10^3uL (1.8-7.7) Lymphocytes # (Auto) 1.7 x10^3/uL (1.0-4.8) Monocytes # (Auto) 0.5 x10^3/uL (0.0-1.1) Eosinophils # (Auto) 0.0 x10^3/uL (0.0-0.7) Basophils # (Auto) 0.0 x10^3/uL (0.0-0.2) Sodium Level 142 mmol/L (136-145) Potassium Level 4.4 mmol/L (3.5-5.1) Chloride Level 106 mmol/L (98-107) Carbon Dioxide Level 28 mmol/L (21-32) Anion Gap 8 (6-14) Blood Urea Nitrogen 28 mg/dL (7-20) Creatinine 1.6 mg/dL (0.6-1.0) Estimated GFR (Cockcroft-Gault) 31.7 BUN/Creatinine Ratio 18 (6-20) Glucose Level 112 mg/dL (70-99) Calcium Level 8.3 mg/dL (8.5-10.1) Total Bilirubin 0.1 mg/dL (0.2-1.0) Aspartate Amino Transf (AST/SGOT) 32 U/L (15-37) Alanine Aminotransferase (ALT/SGPT) 20 U/L (14-59) Alkaline Phosphatase 45 U/L (46-116) Total Protein 6.5 g/dL (6.4-8.2) Albumin 2.4 g/dL (3.4-5.0) Albumin/Globulin Ratio 0.6 (1.0-1.7) Test 10/11/18 11:33 Glucose (Fingerstick) 113 mg/dL (70-99) Review of Systems Review of Systems Pt denies CP, SOB, BECERRA, weakness, dizziness, N/V/D Assessment and Plan Assessmemt and Plan Assessment Lethargy, dyspnea, malaise Influenza A positive Acute hypoxic respiratory failure BELINDA DM2 CAD with hx of 11 stents Obesity CHF Plan Tamiflu 75 BID IVF- follow Creatinine, nephrology following Nebulizer Tx prn routine labs home meds PT/OT D/C dispo pending Appreciate subspecialty input Comment Review of Relevant I have reviewed the following items winnie (where applicable) has been applied. Labs Laboratory Tests Test 10/09/18 16:48 10/09/18 20:38 10/09/18 22:35 10/10/18 04:15 Glucose (Fingerstick) 172 mg/dL (70-99) 138 mg/dL (70-99) Urine Collection Type Unknown Urine Color Yellow Urine Clarity Cloudy Urine pH 5.5 Urine Specific [place] 1.015 Urine Protein 100 mg/dL (NEG-TRACE) Urine Glucose (UA) Negative mg/dL (NEG) Urine Ketones (Stick) Negative mg/dL (NEG) Urine Blood Small (NEG) Urine Nitrite Negative (NEG) Urine Bilirubin Negative (NEG) Urine Urobilinogen Dipstick 0.2 mg/dL (0.2 mg/dL) Urine Leukocyte Esterase Large (NEG) Urine RBC 0 /HPF (0-2) Urine WBC Tntc /HPF (0-4) Urine Squamous Epithelial Cells Few /LPF Urine Transitional Epithelial Cells Occ /LPF Urine Renal Epithelial Cells Occ /LPF Urine Bacteria Many /HPF (0-FEW) Urine Hyaline Casts Moderate /HPF Urine Mucus Slight /LPF White Blood Count 5.0 x10^3/uL (4.0-11.0) Red Blood Count 4.52 x10^6/uL (3.50-5.40) Hemoglobin 13.1 g/dL (12.0-15.5) Hematocrit 39.4 % (36.0-47.0) Mean Corpuscular Volume 87 fL (79-100) Mean Corpuscular Hemoglobin 29 pg (25-35) Mean Corpuscular Hemoglobin Concent 33 g/dL (31-37) Red Cell Distribution Width 15.7 % (11.5-14.5) Platelet Count 141 x10^3/uL (140-400) Neutrophils (%) (Auto) 66 % (31-73) Lymphocytes (%) (Auto) 22 % (24-48) Monocytes (%) (Auto) 12 % (0-9) Eosinophils (%) (Auto) 0 % (0-3) Basophils (%) (Auto) 0 % (0-3) Neutrophils # (Auto) 3.3 x10^3uL (1.8-7.7) Lymphocytes # (Auto) 1.1 x10^3/uL (1.0-4.8) Monocytes # (Auto) 0.6 x10^3/uL (0.0-1.1) Eosinophils # (Auto) 0.0 x10^3/uL (0.0-0.7) Basophils # (Auto) 0.0 x10^3/uL (0.0-0.2) Sodium Level 141 mmol/L (136-145) Potassium Level 4.2 mmol/L (3.5-5.1) Chloride Level 104 mmol/L (98-107) Carbon Dioxide Level 29 mmol/L (21-32) Anion Gap 8 (6-14) Blood Urea Nitrogen 40 mg/dL (7-20) Creatinine 1.9 mg/dL (0.6-1.0) Estimated GFR (Cockcroft-Gault) 26.0 BUN/Creatinine Ratio 21 (6-20) Glucose Level 103 mg/dL (70-99) Hemoglobin A1c 7.7 % (4.8-5.6) Calcium Level 8.2 mg/dL (8.5-10.1) Total Bilirubin 0.3 mg/dL (0.2-1.0) Aspartate Amino Transf (AST/SGOT) 33 U/L (15-37) Alanine Aminotransferase (ALT/SGPT) 23 U/L (14-59) Alkaline Phosphatase 47 U/L (46-116) Total Protein 6.9 g/dL (6.4-8.2) Albumin 2.6 g/dL (3.4-5.0) Albumin/Globulin Ratio 0.6 (1.0-1.7) Test 10/10/18 07:31 10/10/18 10:49 10/10/18 11:50 10/10/18 16:48 Glucose (Fingerstick) 90 mg/dL (70-99) 135 mg/dL (70-99) 171 mg/dL (70-99) Lactic Acid Level 1.0 mmol/L (0.4-2.0) Test 10/10/18 20:40 10/11/18 06:11 10/11/18 07:21 10/11/18 11:33 Glucose (Fingerstick) 122 mg/dL (70-99) 107 mg/dL (70-99) 113 mg/dL (70-99) White Blood Count 4.5 x10^3/uL (4.0-11.0) Red Blood Count 4.29 x10^6/uL (3.50-5.40) Hemoglobin 12.1 g/dL (12.0-15.5) Hematocrit 37.9 % (36.0-47.0) Mean Corpuscular Volume 88 fL (79-100) Mean Corpuscular Hemoglobin 28 pg (25-35) Mean Corpuscular Hemoglobin Concent 32 g/dL (31-37) Red Cell Distribution Width 15.8 % (11.5-14.5) Platelet Count 148 x10^3/uL (140-400) Neutrophils (%) (Auto) 50 % (31-73) Lymphocytes (%) (Auto) 39 % (24-48) Monocytes (%) (Auto) 11 % (0-9) Eosinophils (%) (Auto) 0 % (0-3) Basophils (%) (Auto) 0 % (0-3) Neutrophils # (Auto) 2.2 x10^3uL (1.8-7.7) Lymphocytes # (Auto) 1.7 x10^3/uL (1.0-4.8) Monocytes # (Auto) 0.5 x10^3/uL (0.0-1.1) Eosinophils # (Auto) 0.0 x10^3/uL (0.0-0.7) Basophils # (Auto) 0.0 x10^3/uL (0.0-0.2) Sodium Level 142 mmol/L (136-145) Potassium Level 4.4 mmol/L (3.5-5.1) Chloride Level 106 mmol/L (98-107) Carbon Dioxide Level 28 mmol/L (21-32) Anion Gap 8 (6-14) Blood Urea Nitrogen 28 mg/dL (7-20) Creatinine 1.6 mg/dL (0.6-1.0) Estimated GFR (Cockcroft-Gault) 31.7 BUN/Creatinine Ratio 18 (6-20) Glucose Level 112 mg/dL (70-99) Calcium Level 8.3 mg/dL (8.5-10.1) Total Bilirubin 0.1 mg/dL (0.2-1.0) Aspartate Amino Transf (AST/SGOT) 32 U/L (15-37) Alanine Aminotransferase (ALT/SGPT) 20 U/L (14-59) Alkaline Phosphatase 45 U/L (46-116) Total Protein 6.5 g/dL (6.4-8.2) Albumin 2.4 g/dL (3.4-5.0) Albumin/Globulin Ratio 0.6 (1.0-1.7) Laboratory Tests Test 10/10/18 16:48 10/10/18 20:40 10/11/18 06:11 10/11/18 07:21 Glucose (Fingerstick) 171 mg/dL (70-99) 122 mg/dL (70-99) 107 mg/dL (70-99) White Blood Count 4.5 x10^3/uL (4.0-11.0) Red Blood Count 4.29 x10^6/uL (3.50-5.40) Hemoglobin 12.1 g/dL (12.0-15.5) Hematocrit 37.9 % (36.0-47.0) Mean Corpuscular Volume 88 fL (79-100) Mean Corpuscular Hemoglobin 28 pg (25-35) Mean Corpuscular Hemoglobin Concent 32 g/dL (31-37) Red Cell Distribution Width 15.8 % (11.5-14.5) Platelet Count 148 x10^3/uL (140-400) Neutrophils (%) (Auto) 50 % (31-73) Lymphocytes (%) (Auto) 39 % (24-48) Monocytes (%) (Auto) 11 % (0-9) Eosinophils (%) (Auto) 0 % (0-3) Basophils (%) (Auto) 0 % (0-3) Neutrophils # (Auto) 2.2 x10^3uL (1.8-7.7) Lymphocytes # (Auto) 1.7 x10^3/uL (1.0-4.8) Monocytes # (Auto) 0.5 x10^3/uL (0.0-1.1) Eosinophils # (Auto) 0.0 x10^3/uL (0.0-0.7) Basophils # (Auto) 0.0 x10^3/uL (0.0-0.2) Sodium Level 142 mmol/L (136-145) Potassium Level 4.4 mmol/L (3.5-5.1) Chloride Level 106 mmol/L (98-107) Carbon Dioxide Level 28 mmol/L (21-32) Anion Gap 8 (6-14) Blood Urea Nitrogen 28 mg/dL (7-20) Creatinine 1.6 mg/dL (0.6-1.0) Estimated GFR (Cockcroft-Gault) 31.7 BUN/Creatinine Ratio 18 (6-20) Glucose Level 112 mg/dL (70-99) Calcium Level 8.3 mg/dL (8.5-10.1) Total Bilirubin 0.1 mg/dL (0.2-1.0) Aspartate Amino Transf (AST/SGOT) 32 U/L (15-37) Alanine Aminotransferase (ALT/SGPT) 20 U/L (14-59) Alkaline Phosphatase 45 U/L (46-116) Total Protein 6.5 g/dL (6.4-8.2) Albumin 2.4 g/dL (3.4-5.0) Albumin/Globulin Ratio 0.6 (1.0-1.7) Test 10/11/18 11:33 Glucose (Fingerstick) 113 mg/dL (70-99) Microbiology 10/09/18 Blood Culture - Preliminary, Resulted NO GROWTH AFTER 2 DAYS Medications Current Medications Sodium Chloride 500 ml @ 500 mls/hr 1X ONCE IV Last administered on 10/09/18at 13:00; Start 10/09/18 at 12:15; Stop 10/09/18 at 13:14; Status DC Albuterol/ Ipratropium (Duoneb) 3 ml 1X ONCE NEB Last administered on at 12:55; Start 10/09/18 at 13:00; Stop 10/09/18 at 13:01; Status DC Furosemide (Lasix) 20 mg 1X ONCE IVP Last administered on 10/09/18at 13:04; Start 10/09/18 at 13:00; Stop 10/09/18 at 13:01; Status DC Ondansetron HCl (Zofran) 4 mg PRN Q8HRS PRN IV NAUSEA/VOMITING; Start 10/09/18 at 13:45; Stop 10/10/18 at 13:44; Status DC Acetaminophen (Tylenol) 650 mg PRN Q4HRS PRN PO FEVER Last administered on 02:31; Start 10/09/18 at 13:45; Stop 10/10/18 at 13:44; Status DC Albuterol/ Ipratropium (Duoneb) 3 ml RTQID NEB Last administered on 10/10/18 11 :45; Start 10/09/18 at 16:00; Stop 10/10/18 at 15:59; Status DC Insulin Human Lispro (HumaLOG) 0-9 UNITS TIDWMEALS SQ ; Start 10/09/18 at 17:00 Dextrose (Dextrose 50%-Water Syringe) 12.5 gm PRN Q15MIN PRN IV SEE COMMENTS; Start 10/09/18 at 15:00 Insulin Glargine (Lantus) 65 units QHS SQ Last administered on 10/10/18 21:08; Start 10/09/18 at 21:00 Insulin Human Lispro (HumaLOG) 25 units TIDWMEALS SQ Last administered on 16:57; Start 10/09/18 at 17:00 Heparin Sodium (Porcine) (Heparin Sodium) 5,000 unit BID SQ Last administered on 10/11/18 08:57; Start 10/09/18 at 21:00 Sodium Chloride 1,000 ml @ 75 mls/hr [id number] IV Last administered on 10/10/18 17:01; Start 10/09/18 at 16:00 Oseltamivir Phosphate (Tamiflu) 30 mg DAILY PO Last administered on 10/11/18 08 :50; Start 10/09/18 at 16:30; Stop 10/13/18 at 09:01 Aspirin (Ecotrin) 81 mg DAILY PO Last administered on 10/11/18 08:51; Start 10/10/18 at 09:00 Clopidogrel Bisulfate (Plavix) 75 mg DAILY PO Last administered on 10/11/18 08: 51; Start 10/10/18 at 09:00 Cyanocobalamin (Vitamin B-12) 1,000 mcg DAILY PO Last administered on 10/11/18 08:50; Start 10/10/18 at 09:00 Furosemide (Lasix) 40 mg DAILY PO Last administered on 10/11/18 08:51; Start at 09:00 Gabapentin (Neurontin) 400 mg QID PO Last administered on 10/11/18 08:50; Start 10/09/18 at 19:00 Isosorbide Mononitrate (Imdur) 30 mg DAILY PO Last administered on 10/11/18 08: 51; Start 10/10/18 at 09:00 Nitroglycerin (Nitrostat) 0.4 mg PRN Q5MIN PRN SL CHEST PAIN; Start 10/09/18 at 18:45 Calcium/Vitamin D (Oscal D 500mg/ 200uts) 1 tab [id number] PO Last administered on 10/11/18 08:50; Start 10/10/18 at 08:00 Lisinopril (Prinivil) 5 mg DAILY PO Last administered on 10/11/18 08:51; Start 10/10/18 at 09:00 Metoprolol Succinate (Toprol Xl) 50 mg DAILY PO Last administered on 10/11/18 08:50; Start 10/10/18 at 09:00 Multivitamins (Thera M Plus) 1 tab DAILY PO Last administered on 10/11/18 08:50 ; Start 10/10/18 at 09:00 Fish Oil (Fish Oil) 1,000 mg TID PO Last administered on 10/11/18 08:51; Start 10/09/18 at 21:00 Atorvastatin Calcium (Lipitor) 40 mg QHS PO Last administered on 10/10/18 20:58 ; Start 10/09/18 at 21:00 Zolpidem Tartrate (Ambien) 5 mg PRN QHS PRN PO INSOMNIA, MAY REPEAT X1 Last administered on 10/09/18 22:26; Start 10/09/18 at 18:45 Ibuprofen (Motrin) 400 mg 1X ONCE PO Last administered on 10/10/18 04:43; Start 10/10/18 at 05:00; Stop 10/10/18 at 05:01; Status DC Ceftriaxone Sodium (Rocephin) 1 gm Q24H IVP Last administered on 10/11/18 06:00 ; Start 10/10/18 at 05:00 Lactobacillus Rhamnosus (Culturelle) 1 cap BID PO Last administered on 08:50; Start 10/10/18 at 09:00 Sodium Chloride 1,000 ml @ 250 mls/hr 1X ONCE IV Last administered on at 13:16; Start 10/10/18 at 13:00; Stop 10/10/18 at 16:59; Status DC Acetaminophen (Tylenol) 650 mg PRN Q6HRS PRN PO MILD PAIN / TEMP Last administered on 10/11/18at 03:41; Start 10/11/18 at 03:30 Active Scripts Active Reported Isosorbide Mononitrate Er (Isosorbide Mononitrate) 30 Mg Tab.er.24h 30 Mg PO DAILY Bydureon Pen (Exenatide Microspheres) 2 Mg/0.65 Ml Pen.injctr 2 Mg SQ WEEKLY Ambien (Zolpidem Tartrate) 10 Mg Tablet 10 Mg PO QHS PRN Fish Oil 1,000 mg Softgel (Damar-3/Dha/Epa/Fish Oil) 1,000 Mg Capsule 1,000 Mg PO TID Citracal + D3 Gummies (Calcium Phosphate Trib/Vit D3) 1 Each Tab.chew 1 Each PO DAILY Vitamin B-12 (Cyanocobalamin (Vitamin B-12)) 1,000 Mcg Tablet 1,000 Mcg PO DAILY Alive Once Daily Women 50 Plus (Mv-Mn/Folic Acid/Vit [id number]) 1 Each Tablet 1 Each PO DAILY NITROGLYCERIN SubLingual (Nitroglycerin) 0.4 Mg Tab.subl 0.4 Mg SL PRN Q5MIN PRN Novolog Flexpen (Insulin Aspart) 100 Unit/1 Ml Insuln.pen 25 Unit SQ TIDWMEALS Gabapentin (Gabapentin) 400 Mg Capsule 400 Mg PO QID Metformin Hcl 1,000 Mg Tablet 1,000 Mg PO BIDWMEALS Crestor (Rosuvastatin Calcium) 10 Mg Tablet 10 Mg PO HS Lasix (Furosemide) 40 Mg Tablet 40 Mg PO DAILY Aspir-Low (Aspirin) 81 Mg Tablet.dr 81 Mg PO DAILY Clopidogrel (Clopidogrel Bisulfate) 75 Mg Tablet 75 Mg PO DAILY Toprol Xl (Metoprolol Succinate) 50 Mg Tab.er.24h 50 Mg PO DAILY Zestril (Lisinopril) 5 Mg Tablet 5 Mg PO DAILY Vitals/I & O Vital Sign - Last 24 Hours 10/10/18 10/10/18 10/10/18 10/10/18 15:00 16:53 19:40 20:10 Temp 98.3 98.8 98.3 98.8 Pulse 119 79 74 Resp 18 B/P (MAP) 107/54 (71) 111/53 109/55 (73) Pulse Ox 100 96 O2 Delivery Nasal Cannula Nasal Cannula Nasal Cannula O2 Flow Rate 2.0 2.0 2.0 10/10/18 10/11/18 10/11/18 10/11/18 23:05 03:45 07:42 08:00 Temp 99.5 100.5 99.4 99.5 100.5 99.4 Pulse 82 85 77 Resp 20 18 20 B/P (MAP) 152/67 (95) 139/45 (76) 111/51 (71) Pulse Ox 97 93 95 O2 Delivery Nasal Cannula Nasal Cannula Nasal Cannula Nasal Cannula O2 Flow Rate 2.0 2.0 2.0 10/11/18 10/11/18 10/11/18 10/11/18 08:50 08:51 08:51 11:07 Temp 98.7 98.7 Pulse 77 77 77 71 Resp 20 B/P (MAP) 111/51 111/51 111/51 110/55 (73) Pulse Ox 94 O2 Delivery Nasal Cannula O2 Flow Rate 2.0 Intake and Output 10/10/18 10/10/18 10/11/18 14:59 22:59 06:59 Intake Total 800 ml Output Total 700 ml 800 ml Balance -700 ml 0 ml RUBÉN MARTINEZ III DO Oct 11, 2018 12:30
--- NOTE | 2018-10-11 13:57 | CARD ---
MR#: [id number] Date of Study: 10/11/2018 Ordering Physician: NERI NASH, Referring Physician: NERI NASH, Tech: Latanya Antoine APPROVED REPORT EXAM: Two-dimensional and M-mode echocardiogram with Doppler and color Doppler. Other Information Quality : AverageHR: 73bpm INDICATION Congestive Heart Failure 2D DIMENSIONS Left Atrium(2D)3.6 (1.6-4.0cm)IVSd1.3 (0.7-1.1cm) Aortic Root(2D)2.7 (2.0-3.7cm)LVDd4.6 (3.9-5.9cm) LVOT Diameter1.9 (1.8-2.4cm)PWd1.3 (0.7-1.1cm) LVDs2.7 (2.5-4.0cm)FS (%) 41.8 % SV71.6 mlLVEF(%)72.8 (>50%) Aortic Valve AoV Peak Evaristo.138.4cm/sAoV VTI34.6cm AO Peak GR.7.7mmHgLVOT VTI 24.84cm AO Mean GR.5mmHg Mitral Valve MV E Oeikgeor585.0cm/sMV DECEL [id number] MV A Jiqpwvxb055.0cm/sE/A Ratio1.1 TDI Lateral E' P. V6.80cm/sMedial E' P. V4.63cm/s E/Lateral E'17.5E/Medial E'25.7 Tricuspid Valve TR P. Olxwxntg690ky/sRAP [id number] TR Peak Gr.[id number] Pulmonary Vein S1 Rroevgkn65.3cm/sS2 Jgcfuffb39.62cm/s D2 Qvlfjffh09.6cm/sPVa [id number] LEFT VENTRICLE The left ventricle is normal size. There is moderate concentric left ventricular hypertrophy. The lef t ventricular systolic function is normal. The Ejection Fraction is 60%. There is normal LV segmental wall motion. The left ventricular diastolic function and filling is normal for age. RIGHT VENTRICLE The right ventricle is normal size. There is normal right ventricular wall thickness. The right ventr icular systolic function is normal. ATRIA The left atrium size is normal. The right atrium size is normal. The interatrial septum is intact wit h no evidence for an atrial septal defect or patent foramen ovale as noted on 2-D or Doppler imaging. AORTIC VALVE The aortic valve is thickened but opens well. Doppler and Color Flow revealed no significant aortic r egurgitation. There is no significant aortic valvular stenosis. MITRAL VALVE The mitral valve is calcified but opens well. There is no evidence of mitral valve prolapse. There is no mitral valve stenosis. Doppler and Color-flow revealed trace to mild mitral regurgitation. TRICUSPID VALVE The tricuspid valve is not well visualized. Doppler and Color Flow revealed trace tricuspid regurgita tion. There is no tricuspid valve stenosis. PULMONIC VALVE The pulmonic valve is not well visualized. Doppler and Color Flow revealed no pulmonic valvular regur gitation. GREAT VESSELS The aortic root is normal in size. The IVC is dilated and collapses >50% with inspiration. PERICARDIAL EFFUSION There is no evidence of significant pericardial effusion. Critical Notification Critical Value: No <Conclusion> The left ventricular systolic function is normal. The Ejection Fraction is 60%. There is normal LV segmental wall motion. Trace to mild mitral regurgitation. Trace tricuspid regurgitation. There is no evidence of significant pericardial effusion. Signed by : Keenan Luna, Electronically Approved : 10/11/2018 13:56:36
[2018-10-11 14:47] VITALS: BP 126/57
--- NOTE | 2018-10-11 15:04 | DISCH ---
DISCHARGE WITH HOME HEALTH DISCHARGE INFORMATION: Condition on Discharge: Stable CODE STATUS: Code Status: Full HOME HEALTH: Face to Face: I certify this patient is under my care and that I, or a nurse practitioner or physician's assistant men's soccer coach working with me, had a face to face encounter that meets the physician face to face encounter requirements with this patient on []. Medical Complications: Pneumonia, Other (flu) Physical Therapy For: Evalulation/Treatment Occupational Therapy For: Evaluation/Treatment Home Health Aide For: Self-care BODY LINER For: Community Resources POST DISCHARGE ORDERS: DIET AFTER DISCHARGE: Cardiac CERTIFICATION STATEMENT: Certification Statement: Certification Statement: Based on the above finding, I certify that this patient is confined to the home and needs intermittent shelter care, physical therapy and/or speech therapy, or continues to need occupational therapy.~ This patient is under my care, and I have initiated the establishment of the plan of care.~ This patient will be followed by myself or a community physician who will periodically review the plan of care. Home Meds Reported Medications Isosorbide Mononitrate (ISOSORBIDE MONONITRATE ER) 30 Mg Tab.er.24h, 30 MG PO DAILY for , TAB.SR 10/09/18 Exenatide Microspheres (Bydureon Pen) 2 Mg/0.65 Ml Pen.injctr, 2 MG SQ WEEKLY for , EACH 10/09/18 Zolpidem Tartrate (AMBIEN) 10 Mg Tablet, 10 MG PO QHS PRN for INSOMNIA, TAB 0 Refills 10/09/18 [place]-3/Dha/Epa/Fish Oil (Fish Oil 1,000 mg Softgel) 1,000 Mg Capsule, 1000 MG PO TID for , CAP 10/09/18 Calcium Phosphate Trib/Vit D3 (Citracal + D3 Gummies) 1 Each Tab.chew, 1 EACH PO DAILY for , TAB.CHEW 10/09/18 Cyanocobalamin (Vitamin B-12) (VITAMIN B-12) 1,000 Mcg Tablet, 1000 MCG PO DAILY for , TAB 10/09/18 Mv-Mn/Folic Acid/Vit [id number] (Alive Once Daily Women 50 Plus) 1 Each Tablet, 1 EACH PO DAILY for , TAB 10/09/18 Nitroglycerin (NITROGLYCERIN SubLingual) 0.4 Mg Tab.subl, 0.4 MG SL PRN Q5MIN PRN for CHEST PAIN, BOTTLE 10/09/18 Insulin Aspart (NOVOLOG FLEXPEN) 100 Unit/1 Ml Insuln.pen, 25 UNIT SQ TIDWMEALS for , SYR 10/09/18 Gabapentin (GABAPENTIN ) 400 Mg Capsule, 400 MG PO QID for NEUROGENIC PAIN, CAP 10/09/18 Metformin Hcl (METFORMIN HCL) 1,000 Mg Tablet, 1000 MG PO BIDWMEALS for , TAB 10/09/18 Rosuvastatin Calcium (CRESTOR) 10 Mg Tablet, 10 MG PO HS for FOR CHOLESTEROL, # 30 TAB 0 Refills 10/09/18 Furosemide (LASIX) 40 Mg Tablet, 40 MG PO DAILY for , TAB 10/09/18 Aspirin (ASPIR-LOW) 81 Mg Tablet.dr, 81 MG PO DAILY for , TAB.SR 10/09/18 Clopidogrel Bisulfate (CLOPIDOGREL) 75 Mg Tablet, 75 MG PO DAILY for TO PREVENT BLOOD CLOTS, #30 TAB 0 Refills 10/09/18 Metoprolol Succinate (TOPROL XL) 50 Mg Tab.er.24h, 50 MG PO DAILY for FOR HYPERTENSION, #30 TAB 0 Refills 10/09/18 Lisinopril (ZESTRIL) 5 Mg Tablet, 5 MG PO DAILY for FOR HYPERTENSION, #30 TAB 0 Refills 10/09/18 RUBÉN MARTINEZ III DO Oct 11, 2018 15:04
--- NOTE | 2018-10-11 15:34 | NUR ---
SS following up with discharge planning. Discharge orders received for home healthcare. SS phoned and faxed discharge orders and referral to [facility], ; fax [phone].
--- NOTE | 2018-10-11 16:20 | NUR ---
PATIENT IS DISCHARGED TO HOME WITH HOME HEALTH. DISCHARGE INSTRUCTIONS GIVEN. PIV AND HEART MONITOR REMOVED. ESCORTED PATIENT PER WHEELCHAIR TO EAST ENTRANCE INTO A PRIVATE VEHICLE.
[2018-10-11] MEDS ORDERED: OSELTAMIVIR 30 MG CAPSULE PO SCH (21:00)
--- NOTE | 2018-10-11 21:28 | DS ---
DATE OF DISCHARGE: 10/11/2018 ADMISSION DIAGNOSES: 1. Flu. 2. Hypoxia. 3. Heart failure. 4. Acute renal failure. DISCHARGE DIAGNOSES: 1. Resolving flu. 2. Resolving [id number] systolic and diastolic heart failure. 3. Resolving hypoxia. 4. Obstructive sleep apnea. 5. Diabetes. 6. Coronary artery disease with 11 stents. 7. Obesity. 8. Resolving acute renal failure. CONSULT: Pulmonary and Nephrology. PROCEDURES: None. HOSPITAL COURSE: The patient is a pleasant elderly female who presented with shortness of breath, nausea, was noted to have flu and heart failure. She was admitted. We started on Tamiflu. We consulted Pulmonary and Nephrology. She did have some acute renal failure. Her creatinine has ranged from 2.1 and we have it now down to 1.6. I saw and examined her this morning, she looked great. Her heart tones were normal. Her lungs were clear. We plan to discharge with close outpatient followup. DISPOSITION: Home. ACTIVITY: As tolerated. DIET: Low sodium. MEDICATIONS: Please see the MRAD. TOTAL TIME: 33 minutes. RUBÉN MARTINEZ DO DR: TERA/aquiles JOB#: [id number] / [id number]
== END 2018-10-11 16:23 | disposition home health service (06) | DRG 871 ==
LOC: ER 11:23 → 2 NORTH 13:07
PROVIDERS: ADMIT Internal Medicine; ATTEND Internal Medicine
DX: A41.9 Sepsis, unspecified organism (principal); J96.01 Acute respiratory failure with hypoxia; I50.43 Acute on chronic combined systolic (congestive) and diastolic (congestive) heart failure; J98.11 Atelectasis; N17.9 Acute kidney failure, unspecified; E11.9 Type 2 diabetes mellitus without complications; E66.9 Obesity, unspecified; E86.0 Dehydration; F17.201 Nicotine dependence, unspecified, in remission; G47.33 Obstructive sleep apnea (adult) (pediatric); I11.0 Hypertensive heart disease with heart failure; I25.10 Atherosclerotic heart disease of native coronary artery without angina pectoris; J10.1 Influenza due to other identified influenza virus with other respiratory manifestations; Z68.31 Body mass index [BMI] 31.0-31.9, adult; Z98.61 Coronary angioplasty status
CPT/HCPCS: 36415; 71045; 80053; 81001; 82962; 83036; 83605; 83690; 83735; 83880; 84484; 85025; 85610; 87040; 87086; 87186; 87804; 93005; 93306; 94640; 96374; J0696; J1644; J1815; J1940; J7030; J7040; J7620; 97110; 97116; 97530; 97535; 99285-25

== ENCOUNTER 2021-10-31 17:30 | Inpatient (IN) | payer MEDICARE, OTHER ==
[~2021-10-31] VITALS: Ht 170.2 cm; Wt 90.4 kg
[~2021-10-31 17:30] MED LIST: ASPI81TA50 PO; CALC-494 PO; CLOP75TA PO; CRESTOR10 MG PO; CYAN-25 PO; EXEN2PEN SQ; FURO-68 PO; GABA-689 PO; INSU100I17 SQ; ISOS30TA68 PO; LISI-376 PO; METF10007 PO; METO-269 PO; MV-M1TAB52 PO; NITR0.4T22 SL; OMEG100021 PO; ZOLP10TA PO
[2021-10-31] MEDS ORDERED: ONDANSETRON PF 4 MG/2 ML VIAL. IVP ONE (18:00)
--- NOTE | 2021-10-31 18:20 | EKG ---
[facility] [address] [place] [address] Test Date: 2021-10-31 Test Time: 17:57:46 Pat Name: CHARLES ADAN Department: Room: Gender: F Bilingual Spanish [employer]: : 1945 Requested By: JOSESITO MURILLO Order Number: [id number] Reading MD: Alexei Lobato MD Measurements Intervals [place] Rate: 78 P: 49 IA: 168 QRS: 43 QRSD: 90 T: 39 QT: 388 QTc: 446 Interpretive Statements SINUS RHYTHM LOW LIMB LEAD VOLTAGE QRS(T) CONTOUR ABNORMALITY CONSISTENT WITH ANTEROSEPTAL INFARCT PROBABLY OLD ABNORMAL ECG Electronically Signed On 11-01-2021 17:36:42 CDT by Alexei Lobato MD
[2021-10-31 18:28] LABS: BASO # 0.1 x10^3/uL (0.0-0.2); BASO % 0 % (0-3); EOS # 0.2 x10^3/uL (0.0-0.7); EOS % 1 % (0-3); HEMATOCRIT 40.8 % (36.0-47.0); LYMPH # 1.5 x10^3/uL (1.0-4.8); LYMPH % 11 % (24-48); MEAN CORPUSCULAR HEMOGLOBIN 29 pg (25-35); MEAN CORPUSCULAR HGB CONC 32 g/dL (31-37); MEAN CORPUSCULAR VOLUME 89 fL (79-100); MONO % 7 % (0-9); NEUT # 10.8 x10^3/uL (1.8-7.7); NEUT % 80 % (31-73); PLATELET COUNT 226 x10^3/uL (140-400); RED BLOOD COUNT 4.57 x10^6/uL (3.50-5.40); RED CELL DISTRIBUTION WIDTH 14.6 % (11.5-14.5); WHITE BLOOD COUNT 13.5 x10^3/uL (4.0-11.0)
[2021-10-31] MEDS ORDERED: fentaNYL PF VIAL 100 MCG/2 ML VIAL IVP ONE (18:30)
[2021-10-31 18:42] LABS: CALCIUM 9.5 mg/dL (8.5-10.1); CREATININE 1.7 mg/dL (0.6-1.0); GFR 29.3; POTASSIUM 4.3 mmol/L (3.5-5.1)
[2021-10-31 18:48] LABS: ALBUMIN 3.6 g/dL (3.4-5.0); DIRECT BILIRUBIN 0.1 mg/dL (0.0-0.2); MAGNESIUM 2.3 mg/dL (1.8-2.4); TOTAL BILIRUBIN 0.3 mg/dL (0.2-1.0); TOTAL PROTEIN 7.7 g/dL (6.4-8.2)
--- NOTE | 2021-10-31 18:49 | PHYS DOC ---
Past Medical History Past Medical History: CHF, Diabetes-Type II, Heart Disease, Hypertension, Other Additional Past Medical Histor: Bursitis, 11 stents in heart, Past Surgical History: Angioplasty, Cholecystectomy, Hysterectomy, Other Additional Past Surgical Histo: 11 Stents CARDIAC,BACK WITH RODS, Smoking Status: Never Smoker Alcohol Use: None Drug Use: None General Adult EDM: Chief Complaint: ABDOMINAL PAIN HPI: HPI: Patient is a 75 year old female who presents with complaint of sudden onset right-sided abdominal pain. The patient states that the symptoms began earlier this morning while patient was at a [employer]. The patient states that the pain is cramping and sharp and located in her right lower quadrant. Denies any history of similar symptoms. Does note associated nausea but no vomiting. Has not had any fever, dysuria, hematuria, increased urinary frequency, bloody stools, diarrhea, or constipation. Patient states she tried taking Pepto-Bismol for symptoms but notes no relief. Has had previous history of cholecystectomy but denies any other abdominal surgeries. Notable history for coronary artery disease status post 11 stents placed between multiple cardiac catheterization procedures. Patient states that the pain worsens significantly with any movement. Review of Systems: Review of Systems: Constitutional: Denies fever or chills. [] Eyes: Denies change in visual acuity. [] HENT: Denies nasal congestion or sore throat. [] Respiratory: Denies cough or shortness of breath. [] Cardiovascular: Denies chest pain or edema. [] GI: Abdominal pain, nausea, denies vomiting, bloody stools or diarrhea. [] : Denies dysuria. [] Musculoskeletal: Denies back pain or joint pain. [] Integument: Denies rash. [] Neurologic: Denies headache, focal weakness or sensory changes. [] Endocrine: Denies polyuria or polydipsia. [] Heart Score: C/O Chest Pain: No Risk Factors: Risk Factors: DM, Current or recent (<one month) smoker, HTN, HLP, family history of CAD, obesity. Risk Scores: Score 0 - 3: 2.5% MACE over next 6 weeks - Discharge Home Score 4 - 6: 20.3% MACE over next 6 weeks - Admit for Clinical Observation Score 7 - 10: 72.7% MACE over next 6 weeks - Early Invasive Strategies Current Medications: Current Medications Medications (Trade) Dose Ordered Sig/Mohinder Start Time Stop Time Status Last Admin Dose Admin Fentanyl Citrate (Fentanyl 2ml Vial) 50 mcg 1X ONCE 10/31/21 18:30 10/31/21 18:31 DC 10/31/21 18:34 50 MCG Ondansetron HCl (Zofran) 4 mg 1X ONCE 10/31/21 18:00 10/31/21 18:01 DC 10/31/21 18:23 4 MG Allergies: Allergies: Allergies Coded Allergies Type Severity Reaction Last Updated Verified Iodinated Contrast- Oral and IV Dye Allergy Severe HIVES 10/09/18 Yes codeine Allergy Severe PASSOUT 10/09/18 Yes pioglitazone Allergy Severe SWELLING 10/09/18 Yes rosiglitazone Allergy Severe SWELLING 10/09/18 Yes Physical Exam: PE: Constitutional: Alert, afebrile, appears in moderate discomfort. [] HENT: Normocephalic, atraumatic, bilateral external ears normal, oropharynx moist, no oral exudates, nose normal. [] Eyes: PERRLA, EOMI, conjunctiva normal, no discharge. [] Neck: Normal range of motion, no tenderness, supple, no stridor. [] Cardiovascular:Heart rate regular rhythm, no murmur [] Lungs & Thorax: Bilateral breath sounds clear to auscultation [] Abdomen: Bowel sounds normal, soft, right lower quadrant abdominal tenderness to palpation with guarding, no rebound tenderness, no masses, no pulsatile masses. [] Skin: Warm, dry, no erythema, no rash. [] Back: No tenderness, no CVA tenderness. [] Extremities: No tenderness, no cyanosis, no clubbing, ROM intact, no edema. [] Neurologic: Alert and oriented X 3, normal motor function, normal sensory function, no focal deficits noted. [] Current Patient Data: Labs: Laboratory Tests Test 10/31/21 18:20 White Blood Count 13.5 x10^3/uL (4.0-11.0) H Red Blood Count 4.57 x10^6/uL (3.50-5.40) Hemoglobin 13.0 g/dL (12.0-15.5) Hematocrit 40.8 % (36.0-47.0) Mean Corpuscular Volume 89 fL (79-100) Mean Corpuscular Hemoglobin 29 pg (25-35) Mean Corpuscular Hemoglobin Concent 32 g/dL (31-37) Red Cell Distribution Width 14.6 % (11.5-14.5) H Platelet Count 226 x10^3/uL (140-400) Neutrophils (%) (Auto) 80 % (31-73) H Lymphocytes (%) (Auto) 11 % (24-48) L Monocytes (%) (Auto) 7 % (0-9) Eosinophils (%) (Auto) 1 % (0-3) Basophils (%) (Auto) 0 % (0-3) Neutrophils # (Auto) 10.8 x10^3/uL (1.8-7.7) H Lymphocytes # (Auto) 1.5 x10^3/uL (1.0-4.8) Monocytes # (Auto) 1.0 x10^3/uL (0.0-1.1) Eosinophils # (Auto) 0.2 x10^3/uL (0.0-0.7) Basophils # (Auto) 0.1 x10^3/uL (0.0-0.2) Laboratory Tests 10/31/21 18:20 Vital Signs: Vital Signs Date Time Temp Pulse Resp B/P (MAP) Pulse Ox O2 Delivery O2 Flow Rate FiO2 10/31/21 18:34 18 10/31/21 17:35 98.5 81 147/61 (89) 100 Room Air 98.5 EKG: EKG: Interpreted by me: Heart rate 78, sinus rhythm, normal axis, no acute ST/T wave abnormalities present [] Radiology/Procedures: Radiology/Procedures: [facility] [id number] [facility] [place] [address] IMAGING REPORT Signed PATIENT: CHARLES ADAN ACCOUNT: [id number] : 1945 LOCATION: ER AGE: 75 SEX: F EXAM STATUS: REG ER ORD. PHYSICIAN: JOSESITO MURILLO DO REASON: rlq pain PROCEDURE: CT ABDOMEN PELVIS WO CONTRAST Abdominal and Pelvis CT, Without Contrast: History: Reason: rlq pain / Spl. Instructions: / History: Comparison: None. Procedure: Axial images are obtained of the abdomen and pelvis, without IV or oral contrast. Oral Contrast: No Findings: Evaluation of solid organs is limited without contrast. There is a retrocecal appendix in the mid right hemipelvis. The appendix is dilated to 1.6 cm and there is multiple appendicoliths and wall thickening and surrounding inflammation. There is an air-fluid collection at the tip of the appendix measuring 1.7 x 2.7 cm. Liver: Normal. Spleen: Normal. Pancreas: Normal. Adrenal Glands: Normal. Kidneys: Perinephric stranding is likely chronic. There is no free air or free fluid. There is no lymphadenopathy. The urinary bladder appears normal. There is no pericolonic inflammation identified. Impression: The study is positive for acute appendicitis. The air-fluid collection around the tip of the appendix suggests a walled off perforation of the tip of the appendix. There is no free fluid or free air. End impression PQRS Compliance Statement: One or more of the following individualized dose reduction techniques were utilized for this examination: 1. Automated exposure control 2. Adjustment of the mA and/or kV according to patient size 3. Use of iterative reconstruction technique Electronically signed by: Mai Sorto III, MD (10/31/2021 7:11 PM) [facility] DICTATED and SIGNED BY: MAI SORTO III, MD DATE: 10/31/211903 [] Course & Med Decision Making: Course & Med Decision Making Pertinent Labs and Imaging studies reviewed. (See chart for details) CT imaging confirms presence of acute appendicitis. Patient treated with IV fluids, fentanyl, and Zofran. Started on IV Zosyn in the emergency department. Patient will need admission to the hospital and surgical consultation regarding her condition. Spoke with Dr. Gunn, general surgeon, regarding patient case. He agrees with initial management and will consult on patient in hospital. Patient admitted to Dr. Porter. [] Andrew Disclaimer: Andrew Disclaimer: This electronic medical record was generated, in whole or in part, using a voice recognition dictation system. Departure Departure Impression: Primary Impression: Acute appendicitis Qualified Codes: K35.32 - Acute appendicitis with perforation and localized peritonitis, without abscess Disposition: ADMITTED INPATIENT Admitting Physician: SHIRA Condition: STABLE Referrals: J CARLOS EDMONDSON (PCP) JOSSUE LEVINE MD Oct 31, 2021 18:49
--- NOTE | 2021-10-31 19:13 | RAD ---
Abdominal and Pelvis CT, Without Contrast: History: Reason: rlq pain / Spl. Instructions: / History: Comparison: None. Procedure: Axial images are obtained of the abdomen and pelvis, without IV or oral contrast. Oral Contrast: No Findings: Evaluation of solid organs is limited without contrast. There is a retrocecal appendix in the mid right hemipelvis. The appendix is dilated to 1.6 cm and the re is multiple appendicoliths and wall thickening and surrounding inflammation. There is an air-fluid collection at the tip of the appendix measuring 1.7 x 2.7 cm. Liver: Normal. Spleen: Normal. Pancreas: Normal. Adrenal Glands: Normal. Kidneys: Perinephric stranding is likely chronic. There is no free air or free fluid. There is no lymphadenopathy. The urinary bladder appears normal. There is no pericolonic inflammation identified. Impression: The study is positive for acute appendicitis. The air-fluid collection around the tip of the appendix suggests a walled off perforation of the tip of the appendix. There is no free fluid or free air. End impression PQRS Compliance Statement: One or more of the following individualized dose reduction techniques were utilized for this examinat ion: 1. Automated exposure control 2. Adjustment of the mA and/or kV according to patient size 3. Use of iterative reconstruction technique Electronically signed by: Jovani Padilla III, MD (10/31/2021 7:11 PM) [facility]
[2021-10-31] MEDS ORDERED: PIP/TAZO PER PHARMACY MC PRN (19:45)
[2021-10-31] MEDS: IV NORMAL SALINE 1000ML BAG 1,000 ML IV SCH ×2 (19:56→22:39)
[2021-10-31] MEDS ORDERED: fentaNYL PF VIAL 100 MCG/2 ML VIAL IVP PRN (20:00)
[2021-10-31] MEDS ORDERED: ONDANSETRON PF 4 MG/2 ML VIAL. IVP PRN ×2 (20:00→20:15)
[2021-10-31] MEDS: PIPERACILLIN/TAZOBACTAM 3.375 GM in IV NORMAL SALINE 50ML 50 ML IV SCH (20:00)
[2021-10-31] MEDS ORDERED: MORPHINE SULFATE 2 MG/ML INJ. IV PRN (20:15)
[2021-10-31] MEDS ORDERED: ACETAMINOPHEN 325 MG TABLET. PO PRN (20:15)
[2021-10-31] MEDS ORDERED: SENNOSIDES 8.6 MG TABLET PO PRN (20:15)
[2021-10-31] MEDS ORDERED: ZOLPIDEM 5 MG TABLET. PO PRN ×2 (20:15→22:30)
[2021-10-31] MEDS ORDERED: MORPHINE SULFATE 2 MG/ML INJ. IVP PRN (20:15)
[2021-10-31] MEDS ORDERED: PROCHLORPERAZINE 10 MG/2 ML VIAL. IV PRN (20:15)
[2021-10-31] MEDS ORDERED: DOCUSATE SODIUM 100 MG CAPSULE. PO PRN (20:15)
[2021-10-31] MEDS ORDERED: diphenhydrAMINE HCL 25 MG CAPSULE PO PRN ×2 (20:15)
[2021-10-31] MEDS ORDERED: DEXTROSE 50% 25 GM / 50ML DISP.SYRIN. IV PRN (20:15)
[2021-10-31] MEDS ORDERED: diphenhydrAMINE 50 MG/ML VIAL IVP PRN (20:15)
[2021-10-31] MEDS ORDERED: oxyCODONE/APAP 5/325 1 TAB TABLET PO PRN ×2 (20:15)
[2021-10-31] MEDS ORDERED: LORazepam 0.5 MG TABLET PO PRN (20:15)
--- NOTE | 2021-10-31 20:42 | RAD ---
XR CHEST 1V Clinical History: Reason: rlq pain / Spl. Instructions: / History: Technique: AP view of the chest was obtained at 10/31/2021 6:39 PM. Comparison: October 09, 2018. Findings: The cardiomediastinal silhouette is normal. The pulmonary vasculature is normal. There is reticular o pacities throughout the lungs. Impression: Interstitial infiltrates could be pulmonary edema or atypical pneumonia. Electronically signed by: Jovani Padilla III, MD (10/31/2021 8:40 PM) [facility]
[2021-10-31] MEDS ORDERED: ENOXAPARIN 40 MG/0.4 ML SYRINGE. SQ SCH (21:00)
--- NOTE | 2021-10-31 21:30 | NUR ---
Scheduled Lovenox non-administered on eMar d/t pending surgery on 11/01.
[2021-10-31 21:44] VITALS: BP 139/54
[2021-10-31] MEDS: ZOLPIDEM 5 MG TABLET. PO PRN ×2 (22:38→23:45)
--- NOTE | 2021-10-31 23:37 | NUR ---
ADMIT NOTE The patient, CHARLES ADAN, 75 y/o, F admitted by JANEE DUDLEY MD, was given written information regarding hospital policies, unit procedures and contact persons. Patient orientated to unit, plan of care discussed and admit packet reviewed. Patient does not have complete list of home medications at this time but was able to verify via pharmacy and allergies verified with patient. Patient requesting sleep aid and orders rcvd from MD; ok per MD for meds w/ sips before midnight. Patient in bed, bed in lowest/locked position, bed alarm active and call light within reach.
[2021-11-01] VITALS (12 sets, daily range): BP systolic 99–158; BP diastolic 25–85
[2021-11-01] MEDS ORDERED: ALBU2.5V8 INH (01:40)
[2021-11-01] MEDS ORDERED: INSU100I13 SQ (01:40)
[2021-11-01] MEDS ORDERED: INSU100V6 SQ (01:40)
[2021-11-01] MEDS ORDERED: GABA-585 PO (01:40)
[2021-11-01] MEDS ORDERED: TIOT18CA IH (01:40)
[2021-11-01] MEDS: IV NORMAL SALINE 1000ML BAG 1,000 ML IV SCH ×3 (04:00→17:07)
[2021-11-01 04:43] LABS: BASO % 0 % (0-3); EOS % 0 % (0-3); HEMOGLOBIN 12.4 g/dL (12.0-15.5); LYMPH # 1.5 x10^3/uL (1.0-4.8); LYMPH % 12 % (24-48); MEAN CORPUSCULAR HEMOGLOBIN 29 pg (25-35); MEAN CORPUSCULAR HGB CONC 33 g/dL (31-37); MEAN CORPUSCULAR VOLUME 90 fL (79-100); MONO # 0.9 x10^3/uL (0.0-1.1); MONO % 8 % (0-9); NEUT # 9.5 x10^3/uL (1.8-7.7); NEUT % 79 % (31-73); PLATELET COUNT 211 x10^3/uL (140-400); RED BLOOD COUNT 4.24 x10^6/uL (3.50-5.40); RED CELL DISTRIBUTION WIDTH 14.7 % (11.5-14.5)
[2021-11-01 04:52] LABS: CALCIUM 8.6 mg/dL (8.5-10.1); CREATININE 1.9 mg/dL (0.6-1.0); GFR 25.8; POTASSIUM 4.4 mmol/L (3.5-5.1)
[2021-11-01] MEDS: PIPERACILLIN/TAZOBACTAM 3.375 GM in IV NORMAL SALINE 50ML 50 ML IV SCH (05:13)
--- NOTE | 2021-11-01 05:25 | NUR ---
Rapid COVID swab sent to lab.
--- NOTE | 2021-11-01 07:19 | PDOC2 ---
CONSULT Date of Consult Date of Consult DATE: 11/01/21 TIME: 07:15 Reason for Consult Reason for Consult: Acute appendicitis Referring Physician Referring Physician: German Identification/Chief Complaint Chief Complaint Right lower quadrant abdominal pain Source Source: Chart review, Patient History of Present Illness Reason for Visit: 75-year-old female who developed right lower quadrant abdominal pain yesterday morning became worse over the day that is why she came to the emergency department further evaluation. CT scan done in the emergency department showed signs consistent with acute appendicitis possible perforation at the very tip of the appendix. Past Medical History Cardiovascular: CAD, HTN Endocrine: Diabetes Past Surgical History Past Surgical History: Cholecystectomy, Hysterectomy, Other (Cardiac stent placement) Family History Family History: No Significant, Heart Disease Social History No ALCOHOL: rare Drugs: None Lives: with Family Current Problem List Problem List Problems Medical Problems: (1) Acute appendicitis Status: Acute Current Medications Current Medications Current Medications Ondansetron HCl (Zofran) 4 mg 1X ONCE IVP Last administered on 10/31/21at 18:23; Start 10/31/21 at 18:00; Stop 10/31/21 at 18:01; Status DC Fentanyl Citrate (Fentanyl 2ml Vial) 50 mcg 1X ONCE IVP Last administered on 10/31/21at 18:34; Start 10/31/21 at 18:30; Stop 10/31/21 at 18:31; Status DC Piperacillin Sod/ Tazobactam Sod (Zosyn Per Pharmacy) 1 each PRN DAILY PRN MC SEE COMMENTS; Start 10/31/21 at 19:45 Piperacillin Sod/ Tazobactam Sod 3.375 gm/Sodium Chloride 50 ml @ 100 mls/hr Q6HRS IV Last administered on 11/01/21at 05:13; Start 10/31/21 at 20:00 Ondansetron HCl (Zofran) 4 mg PRN Q8HRS PRN IVP NAUSEA/VOMITING; Start 10/31/21 at 20:00; Stop 10/31/21 at 20:15; Status DC Fentanyl Citrate (Fentanyl 2ml Vial) 50 mcg PRN Q1HR PRN IVP PAIN; Start 10/31/21 at 20:00; Stop 11/01/21 at 19:59 Sodium Chloride 1,000 ml @ 125 mls/hr Q8H IV Last administered on 10/31/21at 19:56; Start 10/31/21 at 20:00; Stop 11/01/21 at 19:59 Sennosides (Senna) 17.2 mg PRN BID PRN PO CONSTIPATION; Start 10/31/21 at 20:15 Docusate Sodium (Colace) 100 mg PRN DAILY PRN PO HARD STOOLS; Start 10/31/21 at 20:15 Ondansetron HCl (Zofran) 4 mg PRN Q6HRS PRN IVP NAUSEA/VOMITING, 1st CHOICE; Start 10/31/21 at 20:15 Dextrose (Dextrose 50%-Water Syringe) 12.5 gm PRN Q15MIN PRN IV SEE COMMENTS; Start 10/31/21 at 20:15 Sodium Chloride 1,000 ml @ 100 mls/hr Q10H IV Last administered on 10/31/21at 22:39; Start 10/31/21 at 21:00 Acetaminophen (Tylenol) 650 mg PRN Q4HRS PRN PO TEMP OVER 100.4F OR MILD PAIN; Start 10/31/21 at 20:15 Lorazepam (Ativan) 0.5 mg PRN Q6HRS PRN PO ANXIETY / AGITATION; Start 10/31/21 at 20:15 Lorazepam (Ativan Inj) 0.25 mg PRN Q4HRS PRN IV ANXIETY / AGITATION; Start 10/31/21 at 20:15 Enoxaparin Sodium (Lovenox 40mg Syringe) 40 mg Q24H SQ ; Start 10/31/21 at 21:00 Oxycodone/ Acetaminophen (Percocet 5/325) 1 tab PRN Q4HRS PRN PO MILD PAIN, 2nd CHOICE; Start 10/31/21 at 20:15 Oxycodone/ Acetaminophen (Percocet 5/325) 2 tab PRN Q4HRS PRN PO MODERATE PAIN, SEVERE PAIN Last administered on 10/31/21at 22:39; Start 10/31/21 at 20:15 Morphine Sulfate (Morphine Sulfate) 1 mg PRN Q1HR PRN IV PAIN; Start 10/31/21 at 20:15 Morphine Sulfate (Morphine Sulfate) 2 mg PRN Q2HR PRN IVP SEVERE PAIN 7-10; Start 10/31/21 at 20:15; Stop 11/01/21 at 20:14 Prochlorperazine Edisylate (Compazine) 10 mg PRN Q6HRS PRN IV NAUSEA/VOMITING, 2nd CHOICE; Start 10/31/21 at 20:15 Diphenhydramine HCl (Benadryl) 25 mg PRN Q6HRS PRN IVP ITCHING; Start 10/31/21 at 20:15 Diphenhydramine HCl (Benadryl) 25 mg PRN Q6HRS PRN PO ITCHING; Start 10/31/21 at 20:15 Diphenhydramine HCl (Benadryl) 25 mg PRN QHS PRN PO INSOMNIA, 1st CHOICE; Start 10/31/21 at 20:15 Zolpidem Tartrate (Ambien) 2.5 mg PRN QHS PRN PO INSOMNIA, 2nd CHOICE; Start 10/31/21 at 20:15; Stop 10/31/21 at 22:28; Status DC Zolpidem Tartrate (Ambien) 5 mg PRN QHS PRN PO INSOMNIA, MAY REPEAT X1 Last administered on 10/31/21at 23:45; Start 10/31/21 at 22:30 Zolpidem Tartrate (Ambien) 5 mg PRN QHS PRN PO INSOMNIA; Start 10/31/21 at 22:30; Status UNV Active Scripts Active Reported Proair Hfa (Albuterol Sulfate) 8.5 Gm Hfa.aer.ad 1 Puff INH PRN Q6HRS PRN Humalog (Insulin Lispro) 100 Unit/1 Ml Vial 8 Unit SQ BID WMEALS Spiriva (Tiotropium [place]) 18 Mcg Cap.w.dev 2 Inh IH DAILY Gabapentin (Gabapentin) 100 Mg Capsule 200 Mg PO TID Lantus Solostar (Insulin Glargine,Hum.rec.anlog) 100 Unit/1 Ml Insuln.pen 32 Unit SQ QHS Bydureon Pen (Exenatide Microspheres) 2 Mg/0.65 Ml Pen.injctr 2 Mg SQ WEEKLY Ambien (Zolpidem Tartrate) 10 Mg Tablet 10 Mg PO QHS PRN Fish Oil 1,000 mg Softgel ([place]-3/Dha/Epa/Fish Oil) 1,000 Mg Capsule 1,000 Mg PO TID Citracal + D3 Gummies (Calcium Phosphate Trib/Vit D3) 1 Each Tab.chew 1 Each PO DAILY Vitamin B-12 (Cyanocobalamin (Vitamin B-12)) 1,000 Mcg Tablet 1,000 Mcg PO DAILY Alive Once Daily Women 50 Plus (Mv-Mn/Folic Acid/Vit K/Wyhs910) 1 Each Tablet 1 Each PO DAILY Crestor (Rosuvastatin Calcium) 10 Mg Tablet 10 Mg PO HS Lasix (Furosemide) 40 Mg Tablet 40 Mg PO DAILY Clopidogrel (Clopidogrel Bisulfate) 75 Mg Tablet 75 Mg PO DAILY Toprol Xl (Metoprolol Succinate) 50 Mg Tab.er.24h 50 Mg PO DAILY Zestril (Lisinopril) 5 Mg Tablet 5 Mg PO DAILY Allergies Allergies: Coded Allergies: Iodinated Contrast Media (Verified Allergy, Severe, HIVES, 10/09/18) codeine (Verified Allergy, Severe, PASSOUT, 10/09/18) pioglitazone (Verified Allergy, Severe, SWELLING, 10/09/18) rosiglitazone (Verified Allergy, Severe, SWELLING, 10/09/18) ROS General: YES: Malaise PSYCHOLOGICAL ROS: No: Anxiety, Behavioral Disorder, Concentration difficultie, Decreased libido, Depression, Disorientation, Hallucinations, Hostility, Irritablity, Memory difficulties, Mood Swings, Obsessive thoughts, Physical abuse, Sexual abuse, Sleep disturbances, Suicidal ideation, Other Eyes: No Blurry vision, No Decreased vision, No Double vision, No Dry eyes, No Excessive tearing, No Eye Pain, No Itchy Eyes, No Loss of vision, No Photophobi a, No Scotomata, No Uses contacts, No Uses glasses, No Other HEENT: No: Heacaches, Visual Changes, Hearing change, Nasal congestion, Nasal discharge, Oral lesions, Sinus pain, Sore Throat, Epistaxis, Sneezing, Snoring, Tinnitus, Vertigo, Vocal changes, Other ALLERGY AND IMMUNOLOGY: No: Hives, Insect Bite Sensitivity, Itchy/Watery Eyes, Nasal Congestion, Post Nasal Drip, Seasonal Allergies, Other Hematological and Lymphatic: No: Bleeding Problems, Blood Clots, Blood Transfusions, Brusing, Night Sweats, Pallor, Swollen Lymph Nodes, Other ENDOCRINE: No: Breast Changes, Galactorrhea, Hair Pattern Changes, Hot Flashes, Malaise/lethargy, Mood Swings, Palpitations, Polydipsia/polyuria, Skin Changes, Temperature Intolerance, Unexpected Weight Changes, Other Respiratory: No: Cough, Hemoptysis, Orthopnea, Pleuritic Pain, Shortness of breath, SOB with excertion, Sputum Changes, Stridor, Tachypnea, Wheezing, Other Cardiovascular: No Chest Pain, No Palpitations, No Orthopnea, No Paroxysmal Noc. Dyspnea, No Edema, No Lt Headedness, No Other Gastrointestinal: Yes Abdominal Pain Genitourinary: No Dysuria, No Frequency, No Incontinence, No Hematuria, No Retention, No Discharge, No Urgency, No Pain, No Flank Pain, No Other, No , No , No , No , No , No , No Musculoskeletal: No Gait Disturbance, No Joint Pain, No Joint Stiffness, No Portia int Swelling, No Muscle Pain, No Muscular Weakness, No Pain In:, No Swelling In:, No Other Neurological: No Behavorial Changes, No Bowel/Bladder ControlChng, No Confusion, No Dizziness, No Gait Disturbance, No Headaches, No Impaired C oord/balance, No Memory Loss, No Numbness/Tingling, No Seizures, No Speech Problems, No Tremors, No Visual Changes, No Weakness, No Other Skin: No Dry Skin, No Eczema, No Hair Changes, No Lumps, No Mole Changes, No Mottling, No Nail Changes, No Pruritus, No Rash, No Skin Lesion Changes, No Other, No Acne Physical Exam General: Alert, Oriented X3, Cooperative, mild distress HEENT: Atraumatic, EOMI Lungs: Clear to auscultation, Normal air movement Heart: Regular rate, No murmurs Abdomen: Normal bowel sounds, Soft, Other (Tender to palpation right lower quad) Extremities: No edema Skin: No significant lesion Neuro: Normal speech Psych/Mental Status: Mental status NL Vitals VITALS Vital Signs Date Time Temp Pulse Resp B/P (MAP) Pulse Ox O2 Delivery O2 Flow Rate FiO2 11/01/21 03:15 98.2 20 126/56 (79) 96 Room Air 98.2 10/31/21 18:33 72 Labs Labs Laboratory Tests Test 10/31/21 18:20 11/01/21 04:00 11/01/21 05:15 White Blood Count 13.5 x10^3/uL (4.0-11.0) 12.0 x10^3/uL (4.0-11.0) Red Blood Count 4.57 x10^6/uL (3.50-5.40) 4.24 x10^6/uL (3.50-5.40) Hemoglobin 13.0 g/dL (12.0-15.5) 12.4 g/dL (12.0-15.5) Hematocrit 40.8 % (36.0-47.0) 38.0 % (36.0-47.0) Mean Corpuscular Volume 89 fL (79-100) 90 fL (79-100) Mean Corpuscular Hemoglobin 29 pg (25-35) 29 pg (25-35) Mean Corpuscular Hemoglobin Concent 32 g/dL (31-37) 33 g/dL (31-37) Red Cell Distribution Width 14.6 % (11.5-14.5) 14.7 % (11.5-14.5) Platelet Count 226 x10^3/uL (140-400) 211 x10^3/uL (140-400) Neutrophils (%) (Auto) 80 % (31-73) 79 % (31-73) Lymphocytes (%) (Auto) 11 % (24-48) 12 % (24-48) Monocytes (%) (Auto) 7 % (0-9) 8 % (0-9) Eosinophils (%) (Auto) 1 % (0-3) 0 % (0-3) Basophils (%) (Auto) 0 % (0-3) 0 % (0-3) Neutrophils # (Auto) 10.8 x10^3/uL (1.8-7.7) 9.5 x10^3/uL (1.8-7.7) Lymphocytes # (Auto) 1.5 x10^3/uL (1.0-4.8) 1.5 x10^3/uL (1.0-4.8) Monocytes # (Auto) 1.0 x10^3/uL (0.0-1.1) 0.9 x10^3/uL (0.0-1.1) Eosinophils # (Auto) 0.2 x10^3/uL (0.0-0.7) 0.0 x10^3/uL (0.0-0.7) Basophils # (Auto) 0.1 x10^3/uL (0.0-0.2) 0.0 x10^3/uL (0.0-0.2) Sodium Level 139 mmol/L (136-145) 142 mmol/L (136-145) Potassium Level 4.3 mmol/L (3.5-5.1) 4.4 mmol/L (3.5-5.1) Chloride Level 103 mmol/L (98-107) 106 mmol/L (98-107) Carbon Dioxide Level 31 mmol/L (21-32) 27 mmol/L (21-32) Anion Gap 5 (6-14) 9 (6-14) Blood Urea Nitrogen 31 mg/dL (7-20) 30 mg/dL (7-20) Creatinine 1.7 mg/dL (0.6-1.0) 1.9 mg/dL (0.6-1.0) Estimated GFR (Cockcroft-Gault) 29.3 25.8 Glucose Level 138 mg/dL (70-99) 161 mg/dL (70-99) Calcium Level 9.5 mg/dL (8.5-10.1) 8.6 mg/dL (8.5-10.1) Magnesium Level 2.3 mg/dL (1.8-2.4) Total Bilirubin 0.3 mg/dL (0.2-1.0) Direct Bilirubin 0.1 mg/dL (0.0-0.2) Aspartate Amino Transf (AST/SGOT) 24 U/L (15-37) Alanine Aminotransferase (ALT/SGPT) 20 U/L (14-59) Alkaline Phosphatase 74 U/L (46-116) Troponin I High Sensitivity 10 ng/L (4-50) 16 ng/L (4-50) FO-Whg-D-Type Natriuretic Peptide 313 pg/mL (0-449) Total Protein 7.7 g/dL (6.4-8.2) Albumin 3.6 g/dL (3.4-5.0) SARS-CoV-2 Antigen (Rapid) Negative (NEGATIVE) Laboratory Tests Test 10/31/21 18:20 11/01/21 04:00 11/01/21 05:15 White Blood Count 13.5 x10^3/uL (4.0-11.0) 12.0 x10^3/uL (4.0-11.0) Red Blood Count 4.57 x10^6/uL (3.50-5.40) 4.24 x10^6/uL (3.50-5.40) Hemoglobin 13.0 g/dL (12.0-15.5) 12.4 g/dL (12.0-15.5) Hematocrit 40.8 % (36.0-47.0) 38.0 % (36.0-47.0) Mean Corpuscular Volume 89 fL (79-100) 90 fL (79-100) Mean Corpuscular Hemoglobin 29 pg (25-35) 29 pg (25-35) Mean Corpuscular Hemoglobin Concent 32 g/dL (31-37) 33 g/dL (31-37) Red Cell Distribution Width 14.6 % (11.5-14.5) 14.7 % (11.5-14.5) Platelet Count 226 x10^3/uL (140-400) 211 x10^3/uL (140-400) Neutrophils (%) (Auto) 80 % (31-73) 79 % (31-73) Lymphocytes (%) (Auto) 11 % (24-48) 12 % (24-48) Monocytes (%) (Auto) 7 % (0-9) 8 % (0-9) Eosinophils (%) (Auto) 1 % (0-3) 0 % (0-3) Basophils (%) (Auto) 0 % (0-3) 0 % (0-3) Neutrophils # (Auto) 10.8 x10^3/uL (1.8-7.7) 9.5 x10^3/uL (1.8-7.7) Lymphocytes # (Auto) 1.5 x10^3/uL (1.0-4.8) 1.5 x10^3/uL (1.0-4.8) Monocytes # (Auto) 1.0 x10^3/uL (0.0-1.1) 0.9 x10^3/uL (0.0-1.1) Eosinophils # (Auto) 0.2 x10^3/uL (0.0-0.7) 0.0 x10^3/uL (0.0-0.7) Basophils # (Auto) 0.1 x10^3/uL (0.0-0.2) 0.0 x10^3/uL (0.0-0.2) Sodium Level 139 mmol/L (136-145) 142 mmol/L (136-145) Potassium Level 4.3 mmol/L (3.5-5.1) 4.4 mmol/L (3.5-5.1) Chloride Level 103 mmol/L (98-107) 106 mmol/L (98-107) Carbon Dioxide Level 31 mmol/L (21-32) 27 mmol/L (21-32) Anion Gap 5 (6-14) 9 (6-14) Blood Urea Nitrogen 31 mg/dL (7-20) 30 mg/dL (7-20) Creatinine 1.7 mg/dL (0.6-1.0) 1.9 mg/dL (0.6-1.0) Estimated GFR (Cockcroft-Gault) 29.3 25.8 Glucose Level 138 mg/dL (70-99) 161 mg/dL (70-99) Calcium Level 9.5 mg/dL (8.5-10.1) 8.6 mg/dL (8.5-10.1) Magnesium Level 2.3 mg/dL (1.8-2.4) Total Bilirubin 0.3 mg/dL (0.2-1.0) Direct Bilirubin 0.1 mg/dL (0.0-0.2) Aspartate Amino Transf (AST/SGOT) 24 U/L (15-37) Alanine Aminotransferase (ALT/SGPT) 20 U/L (14-59) Alkaline Phosphatase 74 U/L (46-116) Troponin I High Sensitivity 10 ng/L (4-50) 16 ng/L (4-50) GR-Ria-W-Type Natriuretic Peptide 313 pg/mL (0-449) Total Protein 7.7 g/dL (6.4-8.2) Albumin 3.6 g/dL (3.4-5.0) SARS-CoV-2 Antigen (Rapid) Negative (NEGATIVE) Images Images CT scan showed signs consistent with acute appendicitis with no phlegmon possible perforation at the tip Assessment/Plan Assessment/Plan Acute appendicitis plan laparoscopic appendectomy BELGICA WHITLOCK MD Nov 01, 2021 07:19
[2021-11-01] MEDS ORDERED: IV RINGERS,LACTATED 1000ML 1,000 ML IV SCH (09:15)
[2021-11-01] MEDS ORDERED: PROCHLORPERAZINE 10 MG/2 ML VIAL. IVP PRN (09:15)
[2021-11-01] MEDS ORDERED: MORPHINE SULFATE 2 MG/ML INJ. IVP PRN (09:15)
[2021-11-01] MEDS ORDERED: fentaNYL PF VIAL 100 MCG/2 ML VIAL IVP PRN ×2 (09:15)
[2021-11-01] MEDS ORDERED: HYDROmorphone 2 MG/ML INJ. IVP PRN (09:15)
[2021-11-01] MEDS ORDERED: fentaNYL PF VIAL 100 MCG/2 ML VIAL ONE (09:31)
[2021-11-01] MEDS ORDERED: ONDANSETRON PF 4 MG/2 ML VIAL. ONE (09:31)
[2021-11-01] MEDS ORDERED: LIDOCAINE 2% PF 5 ML VIAL. ONE (09:31)
[2021-11-01] MEDS ORDERED: DEXAMETHASONE SOD PHOS 4 MG/ML VIAL ONE (09:31)
[2021-11-01] MEDS ORDERED: SEVOFLURANE 61 TO 120 MINUTES. IH ONE (09:31)
[2021-11-01] MEDS ORDERED: BUPIVACAINE-EPI 0.25%-1:200000 MPF 30 ML VIAL. ONE (09:31)
[2021-11-01] MEDS ORDERED: ROCURONIUM 50 MG/5 ML VIAL. ONE (09:31)
[2021-11-01] MEDS ORDERED: PROPOFOL 10 MG/ML (20ML) VIAL. IV ONE ×2 (09:31→10:30)
[2021-11-01] MEDS ORDERED: PIPERACILLIN/TAZOBACTAM 3.375 GM in IV NORMAL SALINE 50ML 50 ML IV ONE (09:45)
[2021-11-01 09:49] LABS: MAGNESIUM 2.3 mg/dL (1.8-2.4); PHOSPHORUS 5.1 mg/dL (2.6-4.7)
--- NOTE | 2021-11-01 09:51 | PDOC1 ---
History and Physical Date of Admission Date of Admission DATE: 11/01/21 TIME: 09:50 History of Present Illness History of Present Illness Lena is a 75 year old female admit iwth new lower right-sided abdominal pain. Sudden pain while out today and taken to the OR, She had cramping and sharp 9/10 pain. was nauseated but did not vomit Has not had any fever, dysuria, hematuria, increased urinary frequency, bloody stools, diarrhea, or constipation. Patient states she tried taking Pepto-Bismol for symptoms but notes no relief. Has had previous history of cholecystectomy but denies any other abdominal surgeries. Notable history for coronary artery disease status post 11 stents placed between multiple cardiac catheterization procedures. Patient states that the pain worsens significantly with any mo vement. Past Medical History Cardiovascular: CAD, HTN Endocrine: Diabetes Past Surgical History Past Surgical History: Cholecystectomy, Hysterectomy, Other (Cardiac stent placement) Family History Family History: No Significant, Heart Disease Social History Smoke: No ALCOHOL: rare Drugs: None Current Problem List Problem List Problems Medical Problems: (1) Acute appendicitis Status: Acute Current Medications Current Medications Current Medications Ondansetron HCl (Zofran) 4 mg 1X ONCE IVP Last administered on 10/31/21at 18:23; Start 10/31/21 at 18:00; Stop 10/31/21 at 18:01; Status DC Fentanyl Citrate (Fentanyl 2ml Vial) 50 mcg 1X ONCE IVP Last administered on 10/31/21at 18:34; Start 10/31/21 at 18:30; Stop 10/31/21 at 18:31; Status DC Piperacillin Sod/ Tazobactam Sod (Zosyn Per Pharmacy) 1 each PRN DAILY PRN MC SEE COMMENTS; Start 10/31/21 at 19:45 Piperacillin Sod/ Tazobactam Sod 3.375 gm/Sodium Chloride 50 ml @ 100 mls/hr Q6HRS IV Last administered on 11/01/21at 05:13; Start 10/31/21 at 20:00 Ondansetron HCl (Zofran) 4 mg PRN Q8HRS PRN IVP NAUSEA/VOMITING; Start 10/31/21 at 20:00; Stop 10/31/21 at 20:15; Status DC Fentanyl Citrate (Fentanyl 2ml Vial) 50 mcg PRN Q1HR PRN IVP PAIN; Start 10/31/21 at 20:00; Stop 11/01/21 at 19:59 Sodium Chloride 1,000 ml @ 125 mls/hr Q8H IV Last administered on 10/31/21at 19:56; Start 10/31/21 at 20:00; Stop 11/01/21 at 08:18; Status DC Sennosides (Senna) 17.2 mg PRN BID PRN PO CONSTIPATION; Start 10/31/21 at 20:15 Docusate Sodium (Colace) 100 mg PRN DAILY PRN PO HARD STOOLS; Start 10/31/21 at 20:15 Ondansetron HCl (Zofran) 4 mg PRN Q6HRS PRN IVP NAUSEA/VOMITING, 1st CHOICE; Start 10/31/21 at 20:15 Dextrose (Dextrose 50%-Water Syringe) 12.5 gm PRN Q15MIN PRN IV SEE COMMENTS; Start 10/31/21 at 20:15 Sodium Chloride 1,000 ml @ 100 mls/hr Q10H IV Last administered on 11/01/21at 08:33; Start 10/31/21 at 21:00 Acetaminophen (Tylenol) 650 mg PRN Q4HRS PRN PO TEMP OVER 100.4F OR MILD PAIN; Start 10/31/21 at 20:15 Lorazepam (Ativan) 0.5 mg PRN Q6HRS PRN PO ANXIETY / AGITATION; Start 10/31/21 at 20:15 Lorazepam (Ativan Inj) 0.25 mg PRN Q4HRS PRN IV ANXIETY / AGITATION; Start 10/31/21 at 20:15 Enoxaparin Sodium (Lovenox 40mg Syringe) 40 mg Q24H SQ ; Start 10/31/21 at 21:00 Oxycodone/ Acetaminophen (Percocet 5/325) 1 tab PRN Q4HRS PRN PO MILD PAIN, 2nd CHOICE; Start 10/31/21 at 20:15 Oxycodone/ Acetaminophen (Percocet 5/325) 2 tab PRN Q4HRS PRN PO MODERATE PAIN, SEVERE PAIN Last administered on 10/31/21at 22:39; Start 10/31/21 at 20:15 Morphine Sulfate (Morphine Sulfate) 1 mg PRN Q1HR PRN IV PAIN; Start 10/31/21 at 20:15 Morphine Sulfate (Morphine Sulfate) 2 mg PRN Q2HR PRN IVP SEVERE PAIN 7-10; Start 10/31/21 at 20:15; Stop 11/01/21 at 20:14 Prochlorperazine Edisylate (Compazine) 10 mg PRN Q6HRS PRN IV NAUSEA/VOMITING, 2nd CHOICE; Start 10/31/21 at 20:15 Diphenhydramine HCl (Benadryl) 25 mg PRN Q6HRS PRN IVP ITCHING; Start 10/31/21 at 20:15 Diphenhydramine HCl (Benadryl) 25 mg PRN Q6HRS PRN PO ITCHING; Start 10/31/21 at 20:15 Diphenhydramine HCl (Benadryl) 25 mg PRN QHS PRN PO INSOMNIA, 1st CHOICE; Start 10/31/21 at 20:15 Zolpidem Tartrate (Ambien) 2.5 mg PRN QHS PRN PO INSOMNIA, 2nd CHOICE; Start 10/31/21 at 20:15; Stop 10/31/21 at 22:28; Status DC Zolpidem Tartrate (Ambien) 5 mg PRN QHS PRN PO INSOMNIA, MAY REPEAT X1 Last administered on 10/31/21at 23:45; Start 10/31/21 at 22:30 Zolpidem Tartrate (Ambien) 5 mg PRN QHS PRN PO INSOMNIA; Start 10/31/21 at 22:30; Status UNV Fentanyl Citrate (Fentanyl 2ml Vial) 25 mcg PRN Q5MIN PRN IVP MILD PAIN 1-3; Start 11/01/21 at 09:15; Stop 11/02/21 at 09:14 Fentanyl Citrate (Fentanyl 2ml Vial) 50 mcg PRN Q5MIN PRN IVP MODERATE PAIN 4- 6; Start 11/01/21 at 09:15; Stop 11/02/21 at 09:14 Morphine Sulfate (Morphine Sulfate) 1 mg PRN Q10MIN PRN IVP SEVERE PAIN 7-10; Start 11/01/21 at 09:15; Stop 11/02/21 at 09:14 Ringer's Solution 1,000 ml @ 30 mls/hr Q24H IV ; Start 11/01/21 at 09:15; Stop 11/01/21 at 21:14 Hydromorphone HCl (Dilaudid) 0.5 mg PRN Q10MIN PRN IVP SEVERE PAIN 7-10, 2nd CHOICE; Start 11/01/21 at 09:15; Stop 11/02/21 at 09:14 Prochlorperazine Edisylate (Compazine) 5 mg PACU PRN PRN IVP NAUSEA, MRX1; Start 11/01/21 at 09:15; Stop 11/02/21 at 09:14 Lidocaine HCl (Lidocaine Pf 2% Vial) 5 ml STK-MED ONCE .ROUTE ; Start 11/01/21 at 09:31; Stop 11/01/21 at 09:31; Status DC Propofol (Diprivan) 200 mg STK-MED ONCE IV ; Start 11/01/21 at 09:31; Stop 11/01/21 at 09:31; Status DC Ondansetron HCl (Zofran) 4 mg STK-MED ONCE .ROUTE ; Start 11/01/21 at 09:31; Stop 11/01/21 at 09:31; Status DC Dexamethasone Sodium Phosphate (Decadron) 4 mg STK-MED ONCE .ROUTE ; Start 11/01/21 at 09:31; Stop 11/01/21 at 09:31; Status DC Sevoflurane (Ultane) 60 ml STK-MED ONCE IH ; Start 11/01/21 at 09:31; Stop 11/01/21 at 09:31; Status DC Rocuronium [place] (Zemuron) 50 mg STK-MED ONCE .ROUTE ; Start 11/01/21 at 09:31; Stop 11/01/21 at 09:31; Status DC Bupivacaine HCl/ Epinephrine Bitart (Sensorcaine-Epi 0.25%-1:[id number] Mpf) 30 ml STK-MED ONCE .ROUTE ; Start 11/01/21 at 09:31; Stop 11/01/21 at 09:31; Status DC Fentanyl Citrate (Fentanyl 2ml Vial) 100 mcg STK-MED ONCE .ROUTE ; Start 11/01/21 at 09:31; Stop 11/01/21 at 09:31; Status DC Piperacillin Sod/ Tazobactam Sod 3.375 gm/Sodium Chloride 50 ml @ 100 mls/hr 1X ONCE IV ; Start 11/01/21 at 09:45; Stop 11/01/21 at 10:14 Active Scripts Active Reported Proair Hfa (Albuterol Sulfate) 8.5 Gm Hfa.aer.ad 1 Puff INH PRN Q6HRS PRN Humalog (Insulin Lispro) 100 Unit/1 Ml Vial 8 Unit SQ BID WMEALS Spiriva (Tiotropium [place]) 18 Mcg Cap.w.dev 2 Inh IH DAILY Gabapentin (Gabapentin) 100 Mg Capsule 200 Mg PO TID Lantus Solostar (Insulin Glargine,Hum.rec.anlog) 100 Unit/1 Ml Insuln.pen 32 Unit SQ QHS Bydureon Pen (Exenatide Microspheres) 2 Mg/0.65 Ml Pen.injctr 2 Mg SQ WEEKLY Ambien (Zolpidem Tartrate) 10 Mg Tablet 10 Mg PO QHS PRN Fish Oil 1,000 mg Softgel (Armstrong-3/Dha/Epa/Fish Oil) 1,000 Mg Capsule 1,000 Mg PO TID Citracal + D3 Gummies (Calcium Phosphate Trib/Vit D3) 1 Each Tab.chew 1 Each PO DAILY Vitamin B-12 (Cyanocobalamin (Vitamin B-12)) 1,000 Mcg Tablet 1,000 Mcg PO DAILY Alive Once Daily Women 50 Plus (Mv-Mn/Folic Acid/Vit K/Obdk597) 1 Each Tablet 1 Each PO DAILY Crestor (Rosuvastatin Calcium) 10 Mg Tablet 10 Mg PO HS Lasix (Furosemide) 40 Mg Tablet 40 Mg PO DAILY Clopidogrel (Clopidogrel Bisulfate) 75 Mg Tablet 75 Mg PO DAILY Toprol Xl (Metoprolol Succinate) 50 Mg Tab.er.24h 50 Mg PO DAILY Zestril (Lisinopril) 5 Mg Tablet 5 Mg PO DAILY Allergies Allergies: Coded Allergies: Iodinated Contrast Media (Verified Allergy, Severe, HIVES, 10/09/18) codeine (Verified Allergy, Severe, PASSOUT, 10/09/18) pioglitazone (Verified Allergy, Severe, SWELLING, 10/09/18) rosiglitazone (Verified Allergy, Severe, SWELLING, 10/09/18) ROS General: YES: Chills, Fatigue, Malaise PSYCHOLOGICAL ROS: No: Anxiety, Behavioral Disorder, Concentration difficultie, Decreased libido, Depression, Disorientation, Hallucinations, Hostility, Irritablity, Memory difficulties, Mood Swings, Obsessive thoughts, Physical abuse, Sexual abuse, Sleep disturbances, Suicidal ideation, Other Eyes: No Blurry vision, No Decreased vision, No Double vision, No Dry eyes, No Excessive tearing, No Eye Pain, No Itchy Eyes, No Loss of vision, No Photophobia, No Scotomata, No Uses contacts, No Uses glasses, No Other HEENT: No: Heacaches, Visual Changes, Hearing change, Nasal congestion, Nasal discharge, Oral lesions, Sinus pain, Sore Throat, Epistaxis, Sneezing, Snoring, Tinnitus, Vertigo, Vocal changes, Other Respiratory: No: Cough, Hemoptysis, Orthopnea, Pleuritic Pain, Shortness of breath, SOB with excertion, Sputum Changes, Stridor, Tachypnea, Wheezing, Other Cardiovascular: No Chest Pain, No Palpitations, No Orthopnea, No Paroxysmal Noc. Dyspnea, No Edema, No Lt Headedness, No Other Gastrointestinal: Yes Nausea, Yes Abdominal Pain; No Diarrhea, No Melena, No Other Genitourinary: No Dysuria, No Frequency, No Incontinence, No Hematuria, No Retention, No Discharge, No Urgency, No Pain, No Flank Pain, No Other, No , No , No , No , No , No , No Musculoskeletal: Yes Joint Stiffness Neurological: No Behavorial Changes, No Bowel/Bladder ControlChng, No Confusion, No Dizziness, No Gait Disturbance, No Headaches, No Impaired Coord/balance, No Memory Loss, No Numbness/Tingling, No Seizures, No Speech Pr oblems, No Tremors, No Visual Changes, No Weakness, No Other Skin: Yes Dry Skin Physical Exam General: Alert, Oriented X3, Cooperative, mild distress HEENT: EOMI Lungs: Normal air movement Heart: S1S2, RRR, no gallops, murmurs Extremities: No edema, Normal pulses Neuro: Normal speech, Normal tone, Sensation intact Psych/Mental Status: Mental status NL, Mood NL Vitals Vitals Vital Signs Date Time Temp Pulse Resp B/P (MAP) Pulse Ox O2 Delivery O2 Flow Rate FiO2 11/01/21 09:38 100.8 83 16 125/58 94 Room Air 2.0 100.8 Labs Labs Laboratory Tests Test 10/31/21 18:20 11/01/21 04:00 11/01/21 05:15 11/01/21 09:48 White Blood Count 13.5 x10^3/uL (4.0-11.0) 12.0 x10^3/uL (4.0-11.0) Red Blood Count 4.57 x10^6/uL (3.50-5.40) 4.24 x10^6/uL (3.50-5.40) Hemoglobin 13.0 g/dL (12.0-15.5) 12.4 g/dL (12.0-15.5) Hematocrit 40.8 % (36.0-47.0) 38.0 % (36.0-47.0) Mean Corpuscular Volume 89 fL (79-100) 90 fL (79-100) Mean Corpuscular Hemoglobin 29 pg (25-35) 29 pg (25-35) Mean Corpuscular Hemoglobin Concent 32 g/dL (31-37) 33 g/dL (31-37) Red Cell Distribution Width 14.6 % (11.5-14.5) 14.7 % (11.5-14.5) Platelet Count 226 x10^3/uL (140-400) 211 x10^3/uL (140-400) Neutrophils (%) (Auto) 80 % (31-73) 79 % (31-73) Lymphocytes (%) (Auto) 11 % (24-48) 12 % (24-48) Monocytes (%) (Auto) 7 % (0-9) 8 % (0-9) Eosinophils (%) (Auto) 1 % (0-3) 0 % (0-3) Basophils (%) (Auto) 0 % (0-3) 0 % (0-3) Neutrophils # (Auto) 10.8 x10^3/uL (1.8-7.7) 9.5 x10^3/uL (1.8-7.7) Lymphocytes # (Auto) 1.5 x10^3/uL (1.0-4.8) 1.5 x10^3/uL (1.0-4.8) Monocytes # (Auto) 1.0 x10^3/uL (0.0-1.1) 0.9 x10^3/uL (0.0-1.1) Eosinophils # (Auto) 0.2 x10^3/uL (0.0-0.7) 0.0 x10^3/uL (0.0-0.7) Basophils # (Auto) 0.1 x10^3/uL (0.0-0.2) 0.0 x10^3/uL (0.0-0.2) Sodium Level 139 mmol/L (136-145) 142 mmol/L (136-145) Potassium Level 4.3 mmol/L (3.5-5.1) 4.4 mmol/L (3.5-5.1) Chloride Level 103 mmol/L (98-107) 106 mmol/L (98-107) Carbon Dioxide Level 31 mmol/L (21-32) 27 mmol/L (21-32) Anion Gap 5 (6-14) 9 (6-14) Blood Urea Nitrogen 31 mg/dL (7-20) 30 mg/dL (7-20) Creatinine 1.7 mg/dL (0.6-1.0) 1.9 mg/dL (0.6-1.0) Estimated GFR (Cockcroft-Gault) 29.3 25.8 Glucose Level 138 mg/dL (70-99) 161 mg/dL (70-99) Calcium Level 9.5 mg/dL (8.5-10.1) 8.6 mg/dL (8.5-10.1) Magnesium Level 2.3 mg/dL (1.8-2.4) Total Bilirubin 0.3 mg/dL (0.2-1.0) Direct Bilirubin 0.1 mg/dL (0.0-0.2) Aspartate Amino Transf (AST/SGOT) 24 U/L (15-37) Alanine Aminotransferase (ALT/SGPT) 20 U/L (14-59) Alkaline Phosphatase 74 U/L (46-116) Troponin I High Sensitivity 10 ng/L (4-50) 16 ng/L (4-50) EQ-Wyh-F-Type Natriuretic Peptide 313 pg/mL (0-449) Total Protein 7.7 g/dL (6.4-8.2) Albumin 3.6 g/dL (3.4-5.0) SARS-CoV-2 Antigen (Rapid) Negative (NEGATIVE) Glucose (Fingerstick) 198 mg/dL (70-99) Laboratory Tests Test 10/31/21 18:20 11/01/21 04:00 11/01/21 05:15 11/01/21 09:48 White Blood Count 13.5 x10^3/uL (4.0-11.0) 12.0 x10^3/uL (4.0-11.0) Red Blood Count 4.57 x10^6/uL (3.50-5.40) 4.24 x10^6/uL (3.50-5.40) Hemoglobin 13.0 g/dL (12.0-15.5) 12.4 g/dL (12.0-15.5) Hematocrit 40.8 % (36.0-47.0) 38.0 % (36.0-47.0) Mean Corpuscular Volume 89 fL (79-100) 90 fL (79-100) Mean Corpuscular Hemoglobin 29 pg (25-35) 29 pg (25-35) Mean Corpuscular Hemoglobin Concent 32 g/dL (31-37) 33 g/dL (31-37) Red Cell Distribution Width 14.6 % (11.5-14.5) 14.7 % (11.5-14.5) Platelet Count 226 x10^3/uL (140-400) 211 x10^3/uL (140-400) Neutrophils (%) (Auto) 80 % (31-73) 79 % (31-73) Lymphocytes (%) (Auto) 11 % (24-48) 12 % (24-48) Monocytes (%) (Auto) 7 % (0-9) 8 % (0-9) Eosinophils (%) (Auto) 1 % (0-3) 0 % (0-3) Basophils (%) (Auto) 0 % (0-3) 0 % (0-3) Neutrophils # (Auto) 10.8 x10^3/uL (1.8-7.7) 9.5 x10^3/uL (1.8-7.7) Lymphocytes # (Auto) 1.5 x10^3/uL (1.0-4.8) 1.5 x10^3/uL (1.0-4.8) Monocytes # (Auto) 1.0 x10^3/uL (0.0-1.1) 0.9 x10^3/uL (0.0-1.1) Eosinophils # (Auto) 0.2 x10^3/uL (0.0-0.7) 0.0 x10^3/uL (0.0-0.7) Basophils # (Auto) 0.1 x10^3/uL (0.0-0.2) 0.0 x10^3/uL (0.0-0.2) Sodium Level 139 mmol/L (136-145) 142 mmol/L (136-145) Potassium Level 4.3 mmol/L (3.5-5.1) 4.4 mmol/L (3.5-5.1) Chloride Level 103 mmol/L (98-107) 106 mmol/L (98-107) Carbon Dioxide Level 31 mmol/L (21-32) 27 mmol/L (21-32) Anion Gap 5 (6-14) 9 (6-14) Blood Urea Nitrogen 31 mg/dL (7-20) 30 mg/dL (7-20) Creatinine 1.7 mg/dL (0.6-1.0) 1.9 mg/dL (0.6-1.0) Estimated GFR (Cockcroft-Gault) 29.3 25.8 Glucose Level 138 mg/dL (70-99) 161 mg/dL (70-99) Calcium Level 9.5 mg/dL (8.5-10.1) 8.6 mg/dL (8.5-10.1) Magnesium Level 2.3 mg/dL (1.8-2.4) Total Bilirubin 0.3 mg/dL (0.2-1.0) Direct Bilirubin 0.1 mg/dL (0.0-0.2) Aspartate Amino Transf (AST/SGOT) 24 U/L (15-37) Alanine Aminotransferase (ALT/SGPT) 20 U/L (14-59) Alkaline Phosphatase 74 U/L (46-116) Troponin I High Sensitivity 10 ng/L (4-50) 16 ng/L (4-50) SE-Slu-S-Type Natriuretic Peptide 313 pg/mL (0-449) Total Protein 7.7 g/dL (6.4-8.2) Albumin 3.6 g/dL (3.4-5.0) SARS-CoV-2 Antigen (Rapid) Negative (NEGATIVE) Glucose (Fingerstick) 198 mg/dL (70-99) VTE Prophylaxis Ordered VTE Prophylaxis Devices: Yes VTE Pharmacological Prophylaxi: Yes Assessment/Plan Assessment/Plan acute appendicitis sepsis obese, BMI 31 acute vasomotor nephropathy on CKD 3 DM2, home insulin, long-term to OR today, pain control and abx Justifications for Admission Other Justification Acute appendicitis NERI NASH MD Nov 01, 2021 09:51
--- NOTE | 2021-11-01 10:04 | NUR ---
SW following. Chart reviewed, pt from home with spouse, room air, NPO, rapid COVID-19 negative. Surgery following. No SW needs identified at this time. SW will continue to follow.
[2021-11-01] MEDS ORDERED: PHENYLEPHRINE in 0.9% NACL PF 1 MG/10 ML SYRINGE. IV ONE (10:12)
[2021-11-01] MEDS ORDERED: PROPOFOL 50 ML IV ONE (10:30)
[2021-11-01] MEDS ORDERED: SUGAMMADEX SODIUM 200 MG/2 ML VIAL. IVP ONE ×2 (10:45→11:00)
[2021-11-01] MEDS: PIPERACILLIN/TAZOBACTAM 2.25 GM in IV NORMAL SALINE 50ML 50 ML IV SCH ×2 (17:07→23:33)
[2021-11-01] MEDS ORDERED: ENOXAPARIN 30 MG/0.3 ML SYRINGE. SQ SCH (21:00)
[2021-11-01] MEDS: ZOLPIDEM 5 MG TABLET. PO PRN (21:16)
[2021-11-01] MEDS ORDERED: ZOLPIDEM 5 MG TABLET. PO ONE (23:30)
[2021-11-01] MEDS ORDERED: INSULIN GLARGINE SYRINGE. SQ SCH (23:30)
[2021-11-01] MEDS ORDERED: INSULIN LISPRO 300 UNITS/3 ML VIAL. SQ ONE (23:30)
[2021-11-02] MEDS: IV NORMAL SALINE 1000ML BAG 1,000 ML IV SCH (02:56)
[2021-11-02 03:18] VITALS: BP 95/40
[2021-11-02] MEDS: PIPERACILLIN/TAZOBACTAM 2.25 GM in IV NORMAL SALINE 50ML 50 ML IV SCH (05:37)
[2021-11-02 07:00] VITALS: BP 124/53
[2021-11-02 07:23] LABS: BASO # 0.1 x10^3/uL (0.0-0.2); BASO % 1 % (0-3); EOS % 0 % (0-3); HEMATOCRIT 37.6 % (36.0-47.0); HEMOGLOBIN 12.1 g/dL (12.0-15.5); LYMPH # 1.2 x10^3/uL (1.0-4.8); LYMPH % 12 % (24-48); MEAN CORPUSCULAR HEMOGLOBIN 29 pg (25-35); MEAN CORPUSCULAR HGB CONC 32 g/dL (31-37); MEAN CORPUSCULAR VOLUME 91 fL (79-100); MONO # 0.7 x10^3/uL (0.0-1.1); MONO % 7 % (0-9); NEUT # 8.2 x10^3/uL (1.8-7.7); NEUT % 80 % (31-73); PLATELET COUNT 153 x10^3/uL (140-400); RED BLOOD COUNT 4.15 x10^6/uL (3.50-5.40); RED CELL DISTRIBUTION WIDTH 14.9 % (11.5-14.5); WHITE BLOOD COUNT 10.2 x10^3/uL (4.0-11.0)
[2021-11-02 07:33] LABS: CALCIUM 8.7 mg/dL (8.5-10.1); CREATININE 1.5 mg/dL (0.6-1.0); GFR 33.9; MAGNESIUM 2.4 mg/dL (1.8-2.4); POTASSIUM 4.6 mmol/L (3.5-5.1)
--- NOTE | 2021-11-02 09:13 | PDOC3 ---
Discharge Summary Visit Information Date of Admission: Nov 01, 2021 Date of Discharge: Nov 02, 2021 Final Diagnosis acute appendicitis sepsis obese, BMI 31 acute vasomotor nephropathy on CKD 3 DM2, home insulin, long-term Problems Medical Problems: (1) Acute appendicitis Status: Acute Brief Hospital Course Allergies Allergies Coded Allergies Type Severity Reaction Last Updated Verified Iodinated Contrast Media Allergy Severe HIVES 10/09/18 Yes codeine Allergy Severe PASSOUT 10/09/18 Yes pioglitazone Allergy Severe SWELLING 10/09/18 Yes rosiglitazone Allergy Severe SWELLING 10/09/18 Yes Vital Signs Vital Signs Date Time Temp Pulse Resp B/P (MAP) Pulse Ox O2 Delivery O2 Flow Rate FiO2 11/02/21 07:00 97.7 77 18 124/53 (76) 92 Room Air 97.7 11/01/21 11:23 8.0 Lab Results Laboratory Tests Test 10/31/21 18:20 11/01/21 04:00 11/01/21 05:15 11/01/21 09:48 White Blood Count 13.5 x10^3/uL (4.0-11.0) 12.0 x10^3/uL (4.0-11.0) Red Blood Count 4.57 x10^6/uL (3.50-5.40) 4.24 x10^6/uL (3.50-5.40) Hemoglobin 13.0 g/dL (12.0-15.5) 12.4 g/dL (12.0-15.5) Hematocrit 40.8 % (36.0-47.0) 38.0 % (36.0-47.0) Mean Corpuscular Volume 89 fL (79-100) 90 fL (79-100) Mean Corpuscular Hemoglobin 29 pg (25-35) 29 pg (25-35) Mean Corpuscular Hemoglobin Concent 32 g/dL (31-37) 33 g/dL (31-37) Red Cell Distribution Width 14.6 % (11.5-14.5) 14.7 % (11.5-14.5) Platelet Count 226 x10^3/uL (140-400) 211 x10^3/uL (140-400) Neutrophils (%) (Auto) 80 % (31-73) 79 % (31-73) Lymphocytes (%) (Auto) 11 % (24-48) 12 % (24-48) Monocytes (%) (Auto) 7 % (0-9) 8 % (0-9) Eosinophils (%) (Auto) 1 % (0-3) 0 % (0-3) Basophils (%) (Auto) 0 % (0-3) 0 % (0-3) Neutrophils # (Auto) 10.8 x10^3/uL (1.8-7.7) 9.5 x10^3/uL (1.8-7.7) Lymphocytes # (Auto) 1.5 x10^3/uL (1.0-4.8) 1.5 x10^3/uL (1.0-4.8) Monocytes # (Auto) 1.0 x10^3/uL (0.0-1.1) 0.9 x10^3/uL (0.0-1.1) Eosinophils # (Auto) 0.2 x10^3/uL (0.0-0.7) 0.0 x10^3/uL (0.0-0.7) Basophils # (Auto) 0.1 x10^3/uL (0.0-0.2) 0.0 x10^3/uL (0.0-0.2) Sodium Level 139 mmol/L (136-145) 142 mmol/L (136-145) Potassium Level 4.3 mmol/L (3.5-5.1) 4.4 mmol/L (3.5-5.1) Chloride Level 103 mmol/L (98-107) 106 mmol/L (98-107) Carbon Dioxide Level 31 mmol/L (21-32) 27 mmol/L (21-32) Anion Gap 5 (6-14) 9 (6-14) Blood Urea Nitrogen 31 mg/dL (7-20) 30 mg/dL (7-20) Creatinine 1.7 mg/dL (0.6-1.0) 1.9 mg/dL (0.6-1.0) Estimated GFR (Cockcroft-Gault) 29.3 25.8 Glucose Level 138 mg/dL (70-99) 161 mg/dL (70-99) Calcium Level 9.5 mg/dL (8.5-10.1) 8.6 mg/dL (8.5-10.1) Magnesium Level 2.3 mg/dL (1.8-2.4) 2.3 mg/dL (1.8-2.4) Total Bilirubin 0.3 mg/dL (0.2-1.0) Direct Bilirubin 0.1 mg/dL (0.0-0.2) Aspartate Amino Transf (AST/SGOT) 24 U/L (15-37) Alanine Aminotransferase (ALT/SGPT) 20 U/L (14-59) Alkaline Phosphatase 74 U/L (46-116) Troponin I High Sensitivity 10 ng/L (4-50) 16 ng/L (4-50) EN-Sxn-H-Type Natriuretic Peptide 313 pg/mL (0-449) Total Protein 7.7 g/dL (6.4-8.2) Albumin 3.6 g/dL (3.4-5.0) Phosphorus Level 5.1 mg/dL (2.6-4.7) SARS-CoV-2 Antigen (Rapid) Negative (NEGATIVE) Glucose (Fingerstick) 198 mg/dL (70-99) Test 11/01/21 11:00 11/01/21 21:16 11/02/21 06:20 11/02/21 08:03 Glucose (Fingerstick) 208 mg/dL (70-99) 337 mg/dL (70-99) 137 mg/dL (70-99) Sodium Level 141 mmol/L (136-145) Potassium Level 4.6 mmol/L (3.5-5.1) Chloride Level 108 mmol/L (98-107) Carbon Dioxide Level 26 mmol/L (21-32) Anion Gap 7 (6-14) Blood Urea Nitrogen 25 mg/dL (7-20) Creatinine 1.5 mg/dL (0.6-1.0) Estimated GFR (Cockcroft-Gault) 33.9 Glucose Level 141 mg/dL (70-99) Calcium Level 8.7 mg/dL (8.5-10.1) Magnesium Level 2.4 mg/dL (1.8-2.4) Laboratory Tests Test 11/01/21 09:48 11/01/21 11:00 11/01/21 21:16 11/02/21 06:20 Glucose (Fingerstick) 198 mg/dL (70-99) 208 mg/dL (70-99) 337 mg/dL (70-99) Sodium Level 141 mmol/L (136-145) Potassium Level 4.6 mmol/L (3.5-5.1) Chloride Level 108 mmol/L (98-107) Carbon Dioxide Level 26 mmol/L (21-32) Anion Gap 7 (6-14) Blood Urea Nitrogen 25 mg/dL (7-20) Creatinine 1.5 mg/dL (0.6-1.0) Estimated GFR (Cockcroft-Gault) 33.9 Glucose Level 141 mg/dL (70-99) Calcium Level 8.7 mg/dL (8.5-10.1) Magnesium Level 2.4 mg/dL (1.8-2.4) Test 11/02/21 08:03 Glucose (Fingerstick) 137 mg/dL (70-99) Brief Hospital Course Ms. Barrett is a 75 old female, acute RLQ abd pain, taken to OR Dr. Gunn, appy removed, fever 100.8, WBC 13 on admit, zosyn given 24 hours pain better that evening, no pain in AM, DC home, f/u 1 weeks Discharge Information Condition at Discharge: Improved Follow Up: Weeks Disposition/Orders: D/C to Home Scheduled Calcium Phosphate Trib/Vit D3 (Citracal + D3 Gummies) 1 Each Tab.chew, 1 EACH PO DAILY for , (Reported) Entered as Reported by: Sebastián Sims on 10/09/181543 Last Action: Reviewed on 11/01/21139 by SHASTA DEVINE Clopidogrel Bisulfate (Clopidogrel) 75 Mg Tablet, 75 MG PO DAILY for TO PREVENT BLOOD CLOTS, #30 Ref 0 (Reported) Entered as Reported by: Sebastián Sims on 10/09/181543 Last Taken: Unknown Dose on 10/30/21 0800 Last Action: Reviewed on 11/01/21139 by SHASTA DEVINE Cyanocobalamin (Vitamin B-12) (Vitamin B-12) 1,000 Mcg Tablet, 1,000 MCG PO DAILY for , (Reported) Entered as Reported by: Sebastián Sims on 10/09/181543 Last Action: Reviewed on 11/01/21139 by SHASTA DEVINE Exenatide Microspheres (Bydureon Pen) 2 Mg/0.65 Ml Pen.injctr, 2 MG SQ WEEKLY for , (Reported) Entered as Reported by: Sebastián Sims on 10/09/181543 Last Action: Reviewed on 11/01/21139 by SHASTA DEVINE Furosemide (Lasix) 40 Mg Tablet, 40 MG PO DAILY for , (Reported) Entered as Reported by: Sebastián Sims on 10/09/181543 Last Action: Reviewed on 11/01/21139 by SHASTA DEVINE Gabapentin (Gabapentin ) 100 Mg Capsule, 200 MG PO TID for NEUROGENIC PAIN, (Reported) Entered as Reported by: SHASTA DEVINE on 11/01/21139 Last Action: New Order on 11/01/21139 by SHASTA DEVINE Insulin Glargine,Hum.rec.anlog (Lantus Solostar) 100 Unit/1 Ml Insuln.pen, 32 UNIT SQ QHS for DIABETES, #15 Ref 3 (Reported) Entered as Reported by: SHASTA DEVINE on 11/01/21139 Last Action: New Order on 11/01/21139 by SHASTA DEVINE Insulin Lispro (Humalog) 100 Unit/1 Ml Vial, 8 UNIT SQ BID WMEALS for DIABETES, (Reported) Entered as Reported by: SHASTA DEVINE on 11/01/21139 Last Action: New Order on 11/01/21139 by SHASTA DEVINE Lisinopril (Zestril) 5 Mg Tablet, 5 MG PO DAILY for FOR HYPERTENSION, #30 Ref 0 (Reported) Entered as Reported by: Sebastián Sims on 10/09/181543 Last Action: Reviewed on 11/01/21139 by SHASTA DEVINE Metoprolol Succinate (Toprol Xl) 50 Mg Tab.er.24h, 50 MG PO DAILY for FOR HYPERTENSION, #30 Ref 0 (Reported) Entered as Reported by: Sebastián Sims on 10/09/181543 Last Action: Reviewed on 11/01/21139 by SHASTA DEVINE Mv-Mn/Folic Acid/Vit K/[id number] (Alive Once Daily Women 50 Plus) 1 Each Tablet, 1 EACH PO DAILY for , (Reported) Entered as Reported by: Sebastián Sims on 10/09/181543 Last Action: Reviewed on 11/01/21139 by SHASTA DEVINE [place]-3/Dha/Epa/Fish Oil (Fish Oil 1,000 mg Softgel) 1,000 Mg Capsule, 1,000 MG PO TID for , (Reported) Entered as Reported by: Sebastián Sims on 10/09/181543 Last Action: Reviewed on 11/01/21139 by SHASTA DEVINE Rosuvastatin Calcium (Crestor) 10 Mg Tablet, 10 MG PO HS for FOR CHOLESTEROL, #30 Ref 0 (Reported) Entered as Reported by: Sebastián Sims on 10/09/181543 Last Action: Reviewed on 11/01/21139 by SHASTA DEVINE Tiotropium [place] (Spiriva) 18 Mcg Cap.w.dev, 2 INH IH DAILY for COPD, #1 Ref 0 (Reported) Entered as Reported by: SHASTA DEVINE on 11/01/21139 Last Action: New Order on 11/01/21139 by SHASTA DEVINE Scheduled PRN Albuterol Sulfate (Proair Hfa) 8.5 Gm Hfa.aer.ad, 1 PUFF INH PRN Q6HRS PRN for SHORTNESS OF BREATH, (Reported) Entered as Reported by: SHASTA DEVINE on 11/01/21139 Last Action: New Order on 11/01/21139 by SHASTA DEVINE Zolpidem Tartrate (Ambien) 10 Mg Tablet, 10 MG PO QHS PRN for INSOMNIA, Ref 0 (Reported) Entered as Reported by: Sebastián Sims on 10/09/181543 Last Action: Reviewed on 11/01/21139 by SHASTA DEVINE Justicifation of Admission Dx: Justifications for Admission: Justification of Admission Dx: Yes NERI NASH MD Nov 02, 2021 09:13
[2021-11-02 11:00] VITALS: BP 118/48
[2021-11-02] MEDS ORDERED: ZOLPIDEM 5 MG TABLET. PO PRN (23:00)
--- NOTE | 2021-11-04 16:16 | PATHOLOGY ---
[facility] Accession Number: [id number] . 01 Material submitted: . appendix - APPENDIX . 01 Clinical history: . APPENDICITIS LAPAROSCOPIC APPENDECTOMY . 02 Diagnosis: Appendix, laparoscopic appendectomy: - Acute appendicitis. ([facility]; 11/04/2021) . [facility] 11/04/2021 0927 Local . 02 Comment: There is no evidence of rupture. ([facility]:mer[facility]; 11/04/2021) . 02 Electronically signed: . Prosper Plasencia MD, Pathologist NPI- [id number] . 01 Gross description: . Fixative: Formalin Labeled: Appendix Appendix length: 7.8 cm Appendix diameter: 1.0-1.5 cm Mesoappendix: 1.3 cm Proximal margin: Stapled Serosa: Soriano-calvillo, dusky, focally hemorrhagic, with adherent exudate Cut surface: Sectioning reveals a focally dilated lumen with a dark brown semisolid fecal contents Wall thickness: 0.1-0.2 cm Luminal diameter: Up to 1.2 cm Perforation: Not identified Lesions/abnormalities: None received A1 Proximal margin (inked black) and mid appendix A2 Distal tip, bisected (JGG; 11/01/2021) JGG/JGG 11/01/2021 2114 Local . 02 Pathologist provided ICD-10: K35.80 . 02 CPT . 704069 Specimen Comment: A courtesy copy of this report has been sent to [phone] Specimen Comment: [phone], Specimen Comment: Report sent to , DR EDMONDSON / DR DUDLEY Specimen Comment: A duplicate report has been generated due to demographic updates. Performed at: 01 [facility] [id number] [facility] [address], [place], [place] [id number] MD Ric Garg MD Phone: [phone] Performed at: 02 [facility] [address] [place], [place] [id number] MD Prosper Plasencia MD Phone: [phone]
--- NOTE | 2021-11-05 12:46 | PDOC4 ---
Operative Note Operative Note Date: November 012021 Preoperative diagnosis: Acute appendicitis Postoperative diagnosis: Same Procedure: Laparoscopic appendectomy Surgeon: Luis A Specimen: Appendix Dictation: Patient is 75-year-old female was mated to the hospital with right lower quadrant abdominal pain and a CT scan showing signs consistent with acute appendicitis. Procedure of laparoscopic appendectomy was explained to the patient detail risk benefits were also discussed including bleeding infection injury to intra-abdominal contents possible necessitating further open operations alternatives to this procedure also discussed with the patient who seemed to understand and gave a verbal and written consent to have procedure p erformed. Patient was taken to the operating room placed in the supine position general anesthesia was initiated once patient was sleeping intubated her abdomen was prepped and draped usual sterile fashion using ChloraPrep. Area in the left upper quadrant was injected quarter percent Marcaine with epinephrine incision was made 11 blade scalpel and a 5 mm Visiport was placed under direct visualization into the abdomen creating pneumoperitoneum once this was complete the 5 mm camera was placed within the abdomen which was inspected was noted there was some inflammation of the right lower quadrant with little bit of fluid in the right gutter. A 5 mm port was placed in the midline low in the pelvis and a 5 mm port was placed in the right midabdomen and a 12 mm port was placed just above the umbilicus all under direct visualization. The appendix was visualized and grasped retracted anteriorly a window was propagated the base of the appendix through the mesoappendix with a [place] dissector a Endo NICO stapler was then used to staple and transect the base of the appendix a second load was used to staple and transect the mesoappendix. The appendix was then placed in Endo Catch bag moved them 12 mm port site. Right lower quadrant pelvis were irrigated and suctioned dry hemostasis deemed be appropriate the pneumoperitoneum was reduced all ports were removed the fascial defect at the umbilicus was closed with [id number] 0 Vicryl suture and the skin was reapproximated all port sites for subcuticular Monocryl Mastisol Steri-Strips and island dressings were applied. Patient was awakened and extubated in the operating room taken recovery in stable condition all sponge instrument needle counts listed as correct estimated blood loss 20 mL. BELGICA WHITLOCK MD Nov 05, 2021 12:46
== END 2021-11-02 11:25 | disposition home or self-care (01) | DRG 853 ==
LOC: ER 17:30 → 4 NORTH 19:43
PROVIDERS: ADMIT Internal Medicine; ATTEND Internal Medicine
PROC: 0DTJ4ZZ Resection of Appendix, Percutaneous Endoscopic Approach (ICD-10-PCS; principal; 2021-11-02)
DX: A41.9 Sepsis, unspecified organism (principal); N17.0 Acute kidney failure with tubular necrosis; K35.32 Acute appendicitis with perforation, localized peritonitis, and gangrene, without abscess; I13.0 Hypertensive heart and chronic kidney disease with heart failure and stage 1 through stage 4 chronic kidney disease, or unspecified chronic kidney disease; E11.22 Type 2 diabetes mellitus with diabetic chronic kidney disease; E66.9 Obesity, unspecified; I25.10 Atherosclerotic heart disease of native coronary artery without angina pectoris; I50.9 Heart failure, unspecified; N18.30 Chronic kidney disease, stage 3 unspecified; Z68.31 Body mass index [BMI] 31.0-31.9, adult; Z79.4 Long term (current) use of insulin; Z90.710 Acquired absence of both cervix and uterus; Z95.5 Presence of coronary angioplasty implant and graft; Z88.8 Allergy status to other drugs, medicaments and biological substances
CPT/HCPCS: 36415; 71045; 74176; 80048; 80076; 82962; 83735; 83880; 84100; 84484; 85025; 87426; 88304; 93005; 96365; 96375; A4222; A4364; A4452; A4556; A4930; A6219; A6257; J1100; J1650; J1815; J2370; J2405; J2543; J2704; J3010; J3490; J7030; 99285-25; G0378